=== PATIENT | female | born 1990 | race Caucasian/White ===

== ENCOUNTER → 2018-12-22 13:26 | Outpatient (CLI) | payer OTHER, SELFPAY ==
--- NOTE | 2018-12-22 13:35 | VDLE_ITS ---
Reason For Study: LLE pain RIGHT LEFT CFV is compressible, spontaneous, phasic, GSV is normal. competent and demonstrates normal CFV is compressible, spontaneous, phasic, augmentation. competent, and demonstrates normal Procedure augmentation. Exam performed in department. FV is compressible, spontaneous, phasic, The exam was diagnostic. competent and demonstrates normal A preliminary report was called and/or faxed augmentation. to Stephan Gamboa PA @ 1:56 pm @ POP V is compressible, spontaneous, phasic, . competent and demonstrates normal Image #14 is LEFT Gastrocnemius Vein. augmentation. T/P Trunk is compressible. PTV is compressible. LT PerV is compressible. Gastrocnemius V is compressible. Interpretation Summary Deep veins of the left lower extremity are patent and compressible segmentally. There is no evidence of left lower extremity deep vein thrombosis. Valvular competence appears intact within the proximal deep venous system on the left . The left greater saphenous vein appears patent and compressible segmentally. Ordering Physician: Stephan Gamboa Referring Physician: Heber Unger Performed By: Phyllis Stratton, STEPHANIE, RVT
[2018-12-22 15:14] LABS: Absolute Lymphocyte Count 2.92 X10^3/ul (0.83-4.51); Absolute Neutrophil Count 5.8 X10^3/uL (2.0-7.7); Basophil# 0.03 X10^3/uL; Basophil% 0.3 % (0-1); Eosinophil# 0.21 X10^3/uL; Eosinophils% 2.2 % (0-5); Hematocrit 38.8 % (37-47); Hemoglobin 13.2 g/dl (12.0-15.0); Lymphocyte # 2.92 X10^3/ul (4.0); Lymphocyte % 30.5 % (19-41); Mean Corpuscular Hgb 30.2 pg (27.0-32.0); Mean Corpuscular Volume 88.8 fL (81-99); Mean Platelet Vol. 10.2 fl (6.2-12.0); Monocyte# 0.59 X10^3/uL; Monocyte% 6.2 % (0-10); Neutrophil # 5.79 X10^3/uL (2.7-7.7); Neutrophil % 60.6 % (47-70); POSITIVE COUNT NO; POSITIVE DIFFERENTIAL NO; POSITIVE MORPHOLOGY NO; Platelet Count 307 K/mm3 (150-450); RBC Distribution Width CV 12.5 % (11.6-14.6); RBC Distribution Width SD 40.2 fl (35.1-43.9); Red Blood Count 4.37 M/mm3 (4.2-5.4); White Blood Count 9.6 K/mm3 (4.4-11.0)
[2018-12-22 15:34] LABS: Erythrocyte Sedimentation Rate 11 mm/hr (0-20)
[2018-12-22 15:36] LABS: CRP 8.61 mg/L (0.0-3.0)
== END ==
PROVIDERS: Family Provider Family Medicine; PCP Family Medicine; Referring Provider Physician Assistant Surgical; Visit Provider Physician Assistant Surgical
DX: M79.662 Pain in left lower leg (principal); M25.562 Pain in left knee
CPT/HCPCS: 36415; 85025; 85652; 86140; 93971

== ENCOUNTER → 2020-05-22 16:33 | Outpatient (CLI) | payer OTHER, SELFPAY ==
[2017-01-29 20:16] VITALS: BMI 51.7
[2020-05-26 13:23] LABS: HPV Reflexed? NOT INDICATED
== END ==
PROVIDERS: PCP Family Medicine; Visit Provider Obstetrics & Gynecology
DX: Z12.4 Encounter for screening for malignant neoplasm of cervix (principal)
CPT/HCPCS: 88175; G0145

== ENCOUNTER → 2020-07-24 14:11 | Outpatient (CLI) | payer OTHER, SELFPAY ==
[2017-01-29 20:16] VITALS: BMI 51.7
[2020-07-24 15:48] LABS: Absolute Lymphocyte Count 2.59 X10^3/uL (0.83-4.51); Absolute Neutrophil Count 5.2 X10^3/uL (2.0-7.7); Basophil# 0.04 X10^3/uL; Basophil% 0.5 % (0-1); Eosinophil# 0.16 X10^3/uL; Eosinophils% 1.9 % (0-5); Hematocrit 35.6 % (37-47); Hemoglobin 12.4 g/dL (12.0-15.0); Lymphocyte # 2.59 X10^3/ul (4.0); Lymphocyte % 30.9 % (19-41); Mean Corp Hgb Conc 34.8 g/dL (32-36); Mean Corpuscular Hgb 31.3 pg (27.0-32.0); Mean Corpuscular Volume 89.9 fL (81-99); Mean Platelet Vol. 10.4 fl (6.2-12.0); Monocyte# 0.38 X10^3/uL; Monocyte% 4.5 % (0-10); NRBC Flagged by Analyzer 0 % (0-5); Neutrophil # 5.17 X10^3/uL (2.7-7.7); Neutrophil % 61.8 % (47-70); Platelet Count 286 K/mm3 (150-450); RBC Distribution Width CV 11.9 % (11.6-14.6); RBC Distribution Width SD 39.2 fl (35.1-43.9); Red Blood Count 3.96 M/mm3 (4.2-5.4); White Blood Count 8.4 K/mm3 (4.4-11.0)
[2020-07-25 09:22] LABS: HIV - WCH Non-Reactive (Nonreactive); Hepatitis B Surface Antigen Non-Reactive (Nonreactive); Hepatitis C Antibody Non-Reactive (Nonreactive); Rubella IgG Reactive (Nonreactive)
[2020-07-26 01:42] LABS: Prenatal RPR NONREACTIVE (NONREACTIVE)
[2020-07-27 04:08] LABS: Chlamydia By Nucleic Acid AMP Negative (Negative)
[2020-07-27 12:34] LABS: Gonococcus By Nucleic Acid AMP Negative (Negative)
== END ==
PROVIDERS: PCP Family Medicine; Visit Provider Obstetrics & Gynecology
DX: Z11.3 Encounter for screening for infections with a predominantly sexual mode of transmission (principal); Z34.81 Encounter for supervision of other normal pregnancy, first trimester
CPT/HCPCS: 36415; 85025; 86703; 86762; 86803; 87086; 87088; 87340; 87491; 87591

== ENCOUNTER → 2020-11-16 11:47 | Outpatient (CLI) | payer OTHER, SELFPAY ==
[2017-01-29 20:16] VITALS: BMI 51.7
[2020-11-16 13:03] LABS: Absolute Lymphocyte Count 1.86 X10^3/uL (0.83-4.51); Absolute Neutrophil Count 4.8 X10^3/uL (2.0-7.7); Basophil# 0.04 X10^3/uL; Basophil% 0.5 % (0-1); Color, Urine Yellow (Yellow); Eosinophil# 0.13 X10^3/uL; Eosinophils% 1.8 % (0-5); Glucose, Dipstick Normal (Normal); Hematocrit 37.2 % (37-47); Hemoglobin 12.5 g/dL (12.0-15.0); Ketone-Dipstick Negative (Negative); Leukocyte Esterase-Dipstick 25 /ul (Negative); Lymphocyte # 1.86 X10^3/ul (0.83-4.51); Lymphocyte % 25.5 % (19-41); Mean Corp Hgb Conc 33.6 g/dL (32-36); Mean Corpuscular Hgb 30.3 pg (27.0-32.0); Mean Corpuscular Volume 90.1 fL (81-99); Mean Platelet Vol. 10.5 fl (6.2-12.0); Monocyte# 0.44 X10^3/uL; NRBC Flagged by Analyzer 0 % (0-5); Neutrophil % 65.8 % (47-70); Nitrite-Dipstick Negative (Negative); Occult Blood-Urine Negative /ul (Negative); Platelet Count 252 K/mm3 (150-450); Protein-Dipstick Negative (Negative); RBC Distribution Width CV 12.3 % (11.6-14.6); RBC Distribution Width SD 40.4 fl (35.1-43.9); Red Blood Count 4.13 M/mm3 (4.2-5.4); Specific Gravity, Urine 1.015 (1.002-1.030); Urine Bilirubin Dipstick Negative (Negative); Urine Clarity Clear (Clear); Urine Urobilinogen Normal (Normal); White Blood Count 7.3 K/mm3 (4.4-11.0)
[2020-11-16 13:21] LABS: Amphetamine Urine VISTA NEGATIVE (<1000 ng/mL); Barbiturate Urine VISTA NEGATIVE (< 200 ng/mL); Benzodiazepine Urine VISTA NEGATIVE (< 200 ng/mL); Cocaine Urine VISTA NEGATIVE (< 300 ng/mL); Ecstacy Urine VISTA NEGATIVE (< 500 ng/mL); Methadone Urine VISTA NEGATIVE (< 300 ng/mL); PCP Urine VISTA NEGATIVE (< 25 ng/mL); THC Urine VISTA NEGATIVE (< 50 ng/mL); Vista UDS pH Range 5
[2020-11-16 13:24] LABS: Thyroid Stim Hormone (TSH) 2.67 uIU/mL (0.358-3.74)
[2020-11-16 13:55] LABS: HIV - WCH Non-Reactive (Nonreactive); Hepatitis B Surface Antigen Non-Reactive (Nonreactive); Hepatitis C Antibody Non-Reactive (Nonreactive); Rubella IgG Reactive (Nonreactive); Syphilis Antibodies Non-reactive
[2020-11-19 16:09] LABS: Chlamydia By Nucleic Acid AMP Negative (Negative)
[2020-11-19 16:22] LABS: Gonococcus By Nucleic Acid AMP Negative (Negative)
== END ==
PROVIDERS: PCP Family Medicine; Visit Provider Obstetrics & Gynecology
DX: Z11.3 Encounter for screening for infections with a predominantly sexual mode of transmission (principal); Z34.81 Encounter for supervision of other normal pregnancy, first trimester
CPT/HCPCS: 36415; 80307; 81002; 84443; 85025; 86703; 86762; 86780; 86803; 87340; 87491; 87591

== ENCOUNTER → 2021-01-07 13:26 | Outpatient (CLI) | payer OTHER, SELFPAY ==
[2017-01-29 20:16] VITALS: BMI 51.7
== END ==
PROVIDERS: PCP Family Medicine; Visit Provider Obstetrics & Gynecology
DX: O26.899 Other specified pregnancy related conditions, unspecified trimester (principal); R31.9 Hematuria, unspecified; Z3A.00 Weeks of gestation of pregnancy not specified
CPT/HCPCS: 87086; 87088

== ENCOUNTER → 2021-03-06 08:44 | Outpatient (CLI) | payer OTHER, SELFPAY ==
[2021-03-06 10:00] LABS: Glucose Challenge Gest 1H 50g 162 mg/dL (70-140)
== END ==
PROVIDERS: PCP Family Medicine; Visit Provider Obstetrics & Gynecology
DX: Z34.82 Encounter for supervision of other normal pregnancy, second trimester (principal)
CPT/HCPCS: 36415; 82950

== ENCOUNTER → 2021-03-15 07:00 | Outpatient (CLI) | payer OTHER, SELFPAY ==
[2021-03-15 08:15] LABS: Glucose GTT-Gestation. Fasting 97 mg/dL (<105)
[2021-03-15 09:45] LABS: Glucose GTT-Gestational 1 Hr 164 mg/dL (<190)
[2021-03-15 09:51] LABS: Glucose GTT-Gestational 2 Hr 149 mg/dL (<165)
[2021-03-15 11:08] LABS: Glucose GTT-Gestational 3 Hr 128 L (<145)
== END ==
PROVIDERS: PCP Family Medicine; Visit Provider Obstetrics & Gynecology
DX: O24.912 Unspecified diabetes mellitus in pregnancy, second trimester (principal); Z3A.00 Weeks of gestation of pregnancy not specified
CPT/HCPCS: 36415; 82951; 82952

== ENCOUNTER 2021-06-16 05:35 | Outpatient (CLI) | payer OTHER, SELFPAY ==
[2021-06-16 05:51] VITALS: TEMP 36.7
[2021-06-16 05:52] VITALS: BP 141/77; PULSE 91; TEMP 36.7
[2021-06-16 05:56] VITALS: BMI 52.6
[2021-06-16 06:06] VITALS: BP 128/68; PULSE 95
--- NOTE | 2021-06-16 09:37 | OB.TRI.NOTE ---
HPI - General HPI Narrative ANI KEARNEY, is a 31 F who presents at 36 weeks 3 days gestation to labor and delivery with right sided pain and back pain since 3:30 AM. Patient is scheduled for a repeat a few weeks. PFSH PFSH Home Medications Omeprazole [Prilosec] 40 mg PO DAILY 01/29/17 [History Last Taken 06/16/21 03:30] vit,[id number] [Prenatabs FA] 1 tab PO DAILY 01/29/17 [History Last Taken 06/15/21] acetaminophen [Tylenol Ex Str Rapid Release] 1,000 mg PO PRN PRN 06/16/21 [History Last Taken 06/16/21 03:30] aspirin [Baby Aspirin] 81 mg PO DAILY 06/16/21 [History Last Taken 06/14/21] Allergy/AdvReac Type Severity Reaction Status Date / Time No Known Allergies Allergy Verified 01/29/17 20:14 Social History Smoking Status: Never smoker History Elective abortions Hx Para 0 Spontaneous abortions Hx # Term Pregnancies Ectopic pregnancies Hx # Pregnancies Multiple births # of living children NST FHR Rate Baby A NST Reactive:: Yes FHR Category:: Category I Assessment & Plan (1) Right lower quadrant abdominal pain: PLAN: 36-week 2-day gestation with some right lower quadrant pain. Denies any fevers, nausea, vomiting. Pain was described as crampy and resolved over period of 1 to 2 hours on labor delivery. heart tones were reactive. Will discharge to home with routine follow-up.
== END 2021-06-16 23:59 | disposition home or self-care (01) ==
LOC: WPOUT 05:41 → WP 05:42
PROVIDERS: Visit Provider Obstetrics & Gynecology
DX: O26.893 Other specified pregnancy related conditions, third trimester (principal); R10.31 Right lower quadrant pain; Z3A.36 36 weeks gestation of pregnancy
CPT/HCPCS: 59025; 59050; 99218; G0378

== ENCOUNTER 2021-06-21 13:22 | Outpatient (CLI) | payer OTHER, BC, SELFPAY | END 2021-06-21 23:59 | disposition short-term general hospital (02) | PROVIDERS: Visit Provider Obstetrics & Gynecology | DX: Z36.85 Encounter for antenatal screening for Streptococcus B (principal) | CPT/HCPCS: 87077; 87081; 87186 ==

== ENCOUNTER 2021-06-28 11:09 | Outpatient (CLI) | payer OTHER, BC, SELFPAY | END 2021-06-28 23:59 | disposition short-term general hospital (02) | PROVIDERS: Visit Provider Obstetrics & Gynecology | DX: Z03.818 Encounter for observation for suspected exposure to other biological agents ruled out (principal) | CPT/HCPCS: 87635; U0003; U0005 ==

== ENCOUNTER 2021-07-05 05:05 | Inpatient (IN) | payer OTHER, BC, SELFPAY ==
[2021-07-05] VITALS (19 sets, daily range): BP systolic 100–133; BP diastolic 43–71; PULSE 73–97; RESP 12–20; TEMP 36–37.1; O2SAT 92–100; BMI 53.8
[2021-07-05] MEDS: Lactated Ringers 1,000 ML 999 ML IV (06:10)
[2021-07-05] MEDS: Acetaminophen 500 MG Tablet 1000 MG PO ×3 (06:45→17:56)
[2021-07-05 06:46] LABS: Absolute Lymphocyte Count 1.78 X10^3/uL (0.83-4.51); Absolute Neutrophil Count 5.7 X10^3/uL (2.0-7.7); Basophil# 0.02 X10^3/uL; Basophil% 0.2 % (0-1); Eosinophil# 0.08 X10^3/uL; Hemoglobin 8.6 g/dL (12.0-15.0); Lymphocyte # 1.78 X10^3/ul (0.83-4.51); Lymphocyte % 21.8 % (19-41); Mean Corp Hgb Conc 31.9 g/dL (32-36); Mean Corpuscular Hgb 26.2 pg (27.0-32.0); Mean Corpuscular Volume 82.3 fL (81-99); Mean Platelet Vol. 10.5 fl (6.2-12.0); Monocyte# 0.56 X10^3/uL; Monocyte% 6.8 % (0-10); NRBC Flagged by Analyzer 0 % (0-5); Neutrophil # 5.66 X10^3/uL (2.7-7.7); Neutrophil % 69.2 % (47-70); Platelet Count 210 K/mm3 (150-450); RBC Distribution Width SD 41.4 fl (35.1-43.9); Red Blood Count 3.28 M/mm3 (4.2-5.4); White Blood Count 8.2 K/mm3 (4.4-11.0)
[2021-07-05] MEDS: Lactated Ringers 1,000 ML 150 ML IV (07:18)
[2021-07-05] MEDS: Sodium Citrate/Citric Acid 30 ML UDC PO (07:18)
--- NOTE | 2021-07-05 07:52 | HP.PCM.OB_ITS ---
HPI - General General Date of Admission: 07/05/21 HPI Narrative ANI KEARNEY, is a 31 F who presents at 39 1/7 wga by LMP c/w 9w4d US for scheduled repeat section with tubal sterilization. issues: GBS positive Obesity Unstable lie Maternal Data Information MEJIA Calculator Estimated Delivery Date Method Current WG Current Estimate 07/11/21 Manual 39w 2d PFSH [facility] Medical History (Updated 07/05/21 @ 09:[address] Una Carlin MD) Delivered by section Pneumonia Polyhydramnios Home Medications Omeprazole [Prilosec] 40 mg PO DAILY 01/29/17 [History Last Taken 07/05/21 04:00] vit,[id number] [Prenatabs FA] 1 tab PO DAILY 01/29/17 [History Last Taken 07/04/21 06:00] aspirin [Baby Aspirin] 81 mg PO DAILY 06/16/21 [History Last Taken 07/04/21 06:00] Allergy/AdvReac Type Severity Reaction Status Date / Time No Known Allergies Allergy Verified 07/05/21 05:44 Family History no significant family his Surgical History no surgical history Social History Smoking Status: Never smoker History Elective abortions Hx Para 1 Spontaneous abortions Hx # Term Pregnancies Ectopic pregnancies Hx # Pregnancies Multiple births # of living children Past Pregnancies Del. Date Name GA/Weeks Outcome Route Bth Weight Gen Labor Lgth Anesthesia Del [facility] Provider FOB 01/31/17 Clara live - full term Female NST FHR Rate Baby A Baseline: 135 Vital Signs Vital Signs Vital Signs: 07/05/21 06:32 Temperature 98.1 F Temperature Source Temporal Pulse Rate 85 Respiratory Rate 18 Blood Pressure 124/64 H Blood Pressure Mean 84 Blood Pressure Position Semi-Fowlers Blood Pressure Location Left Arm Pulse Ox 96 Oxygen Delivery Method Room Air Weight Weight: 137.892 kg Body Mass Index (BMI) 53.8 Physical Exam Const alert, oriented x3 and no apparent distress HEENT normocephalic Resp normal respiratory effort, normal air movement and clear to auscultation bilaterally Cardio regular rate and regular rhythm GI normal to inspection, nondistended, normoactive bowel sounds, soft to palpation, non-tender and non-distended Inspection: gravid Labs Labs Labs: Blood Type A POSITIVE Antibody Screen NEGATIVE Hct 27.0 % (37-47) L Hgb 8.6 g/dL (12.0-15.0) L Syphilis Total Ab Non-reactive Rubella IgG Antibody Reactive (Nonreactive) Hep Bs Antigen Non-Reactive (Nonreactive) Neisseria gonorrhoeae DNA (TARSHA) Negative (Negative) HIV 1&2 Antibody Non-Reactive (Nonreactive) C.trachomatis DNA (PCR) Negative (Negative) Glucose 1 Hr 50 gm 162 mg/dL (70-140) H Group B Strep DNA POSITIVE (Negative) H Rhogam given: No Assessment & Plan (1) 39 weeks gestation of : PLAN: Proceed with repeat C/S, bilateral salpingectomy as planned.
--- NOTE | 2021-07-05 08:10 | FALS_PTH ---
PATIENT: ANI KEARNEY LOC: [facility] U#:[id number] AGE/SX: 31/F ROOM: WP005 RE07/05/[address]: Dr. Una Carlin MD : 1990 BED: 1 DIS: 07/06/2021 SPEC #: [id number] RECD: 07/05/21 10:25 STATUS: FARIBA KYLAHJennifer #: [id number] CODIE: 07/05/21 08:[address]: Una Haynes DEPT: SURGICAL PATHOLOGY RECD BY: Mamie Seo Tissues: Fallopian tube Procedures: Surgery Specimen Level II HEADER OPERATION: Tubal ligation PRE-OP DIAGNOSIS: Sterilization TISSUE SUBMITTED: Fallopian tubes, suture in right tube MICROSCOPIC DIAGNOSIS Right fallopian tube, salpingectomy: Complete segment of fallopian tube with benign paratubal cysts. Left fallopian tube, salpingectomy: Complete segment of fallopian tube with no pathologic change. AM:sol 07/08/2021 MICROSCOPIC DESCRIPTION Slides are reviewed. GROSS DESCRIPTION Received in fixative is one container labeled with the patient's name and designated bilateral fallopian tubes, suture in right tube. The specimen consists of two fallopian tubes with an average length of 6 cm and has an average diameter of 1 cm. Both fallopian tubes have normal fimbriated ends. No mass lesions are identified. Inspector Of Dredging sections are submitted in two cassettes as follows: 1 - right fallopian tube, 2 - left fallopian tube. / AM:sol 07/05/2021 TC:5 CPT: 25093 x2
--- NOTE | 2021-07-05 09:05 | EX.PCM.OBRPT ---
Assessment & Plan (1) 39 weeks gestation of : (2) Delivered by section: (3) Sterilization: Maternal Data Information MEJIA Calculator Estimated Delivery Date Method Current WG Current Estimate 07/11/21 Manual 39w 1d Details Operative Information Date of Procedure: 07/05/21 Pre-Operative Diagnosis: 1. 39 1/7 weeks gestation 2. Prior section 3. sterilization request Post-Operative Diagnosis: 1. 39 1/7 weeks gestation 2. Prior section 3. sterilization request Indications for : Repeat Elective and Desires elective sterilization Indications Narrative: 31-year-old 2 para 1-0-0-1 presents at 39-1/7 weeks gestational age for scheduled repeat section and tubal sterilization with bilateral salpingectomy. Procedural risks, benefits, indications and alternatives were reviewed at length and patient desired to proceed. Classification: Scheduled Procedure Type: low transverse rock drill operator #1: Alan Dozier Type of Anesthesia: Epidural Anesthesiologist: Tr Conway Antibiotic Given: Ancef 3 grams IV x1 Drain: Gonzalez to straight drain Estimated Blood Loss: 900 ml Findings Description of Procedure: The patient was taken to the operating room and spinal analgesia was administered. She is placed in a dorsal supine position with left lateral tilt. The perineum and abdomen were prepped and draped in sterile fashion. And the spinal was found to be adequate. A Pfannenstiel incision was made using a scalpel and brought down to incise the subcutaneous tissue and rectus fascia at the midline. Subcutaneous tissue was bluntly dissected off the fascia laterally. The fascial incision was dissected laterally and cephalad using curved Kim scissors. The superior leaflet of the rectus fascia was grasped using Keli clamps and bluntly dissected and sharply dissected from the underlying rectus muscle. In a similar fashion the inferior rectus fascia was dissected from the underlying muscle. The rectus muscles were bluntly at the midline. The peritoneum was identified and entered [sharply]. There was a superficial incidental hysterotomy at the midline through the serosal layer due to peritoneal entry. The bladder blade was placed into the abdomen and the vesicouterine peritoneal fold identified. The fold was incised and a bladder flap created. Bladder blade was then repositioned to the abdomen. A low transverse hysterotomy was made using the [Metzenbaum scissors] to level of the membranes. The hysterotomy was extended bluntly cephalad and caudad. The head was elevated and brought to the level of the hysterotomy, membranes were ruptured and clear, and the infant delivered revealing vigorous [male] infant. The cord was doubly clamped and cut after 30 seconds. The infant was passed to awaiting [nursery personnel]. The placenta was [expressed] from the uterus and appeared intact on inspection. The uterus was exteriorized and cleared of debris. The hysterotomy was then repaired using 0 Vicryl running lock suture. A second imbricating layer was also placed for additional hemostasis. Left salpingectomy was performed using the LigaSure device to electrocoagulate and separate the tube from the mesosalpinx to the level of the uterine cornua. In similar fashion right salpingectomy was performed. The midline superficial hysterotomy was repaired using 3-0 Monocryl. The uterus and adnexa were returned to the abdomen the bladder blade was repositioned. Additional hemostasis was required at the transverse hysterotomy. Mattress suture of 0 Vicryl was placed with good hemostasis. The anterior cul-de-sac was cleared of debris. The peritoneum and rectus muscles were reapproximated using 2-0 Vicryl running suture. The rectus fascia was closed using oh strata fix running suture. The subcutaneous tissue was reapproximated using 2-0 Vicryl. The skin was closed using 4-0 Monocryl subcuticularly. A Mepilex occlusive dressing was placed over the incision. The fundus was firm. The patient was then transferred to the recovery room without complication. Sponge, instrument, and needle counts were correct ?2. Tranexamic acid administered during procedure. Infant weight 9 pounds 10 ounces (4355 g) Presentation: Positive for Vertex Amniotic Membrane Rupture Type: Artificial Amniotic Fluid Description: Clear Placental Delivery Description: Expressed Placenta Disposition: [facility] Cord Vessel Description: 3 Vessels Cord Entanglement: Around neck x 1, loose Nuchal Cord Compression: Without compression Infant A Gender: Male (1 minute): 8 (5 minute): 9 Delayed Cord Clamping: Yes Complications Risks of Surgery Discussed w/Patient: Bleeding, Anesthesia Risks, Infection, Failure Rate of 1 to 2% and Injury to surrounding structure(s) including bowel and bladder
[2021-07-05] MEDS: Oxytocin 30 units/NS 500 ml 30 UNITS/500 ML IV.SOLN 167 UNITS IV (09:30)
[2021-07-05 10:25] LABS: Pathology Specimen OB SEE PATHOLOGY REPORT
[2021-07-05] MEDS: Ketorolac 30 MG/ML Syringe IV ×3 (10:35→22:39)
[2021-07-05] MEDS: Lactated Ringers 1,000 ML 100 ML IV (12:27)
[2021-07-05] MEDS: Cefazolin 1 GM/50 ML BAG IV (15:09)
[2021-07-05] MEDS: Ondansetron 4 MG/2 ML Vial IV (15:17)
[2021-07-05] MEDS: 0.9% Saline Lock 10 ML Syringe IV (15:17)
--- NOTE | 2021-07-05 17:23 | NURSING ---
First ambulation delayed due to pt nausea and feeling lightheaded.
[2021-07-05] MEDS: Enoxaparin 40 MG/0.4 ML Syringe SC (21:02)
[2021-07-06 00:19] VITALS: BP 108/46; PULSE 79; RESP 16; O2SAT 92
[2021-07-06] MEDS: Cefazolin 1 GM/50 ML BAG IV (00:24)
[2021-07-06] MEDS: Acetaminophen 500 MG Tablet 1000 MG PO ×3 (00:24→11:47)
[2021-07-06 04:35] VITALS: BP 93/45; PULSE 83; RESP 16; O2SAT 92
[2021-07-06] MEDS: Ketorolac 30 MG/ML Syringe IV (04:37)
[2021-07-06 05:10] LABS: Hematocrit 23.6 % (37-47); Hemoglobin 7.7 g/dL (12.0-15.0); Mean Corp Hgb Conc 32.6 g/dL (32-36); Mean Corpuscular Hgb 27.2 pg (27.0-32.0); Mean Corpuscular Volume 83.4 fL (81-99); Mean Platelet Vol. 10.6 fl (6.2-12.0); Platelet Count 168 K/mm3 (150-450); RBC Distribution Width CV 14.1 % (11.6-14.6); Red Blood Count 2.83 M/mm3 (4.2-5.4); White Blood Count 9.5 K/mm3 (4.4-11.0)
[2021-07-06 06:25] VITALS: PULSE 83; O2SAT 97
--- NOTE | 2021-07-06 07:37 | PCM.DC.SUM ---
Providers Date of Admission: 07/05/21 Reason For Visit: REPEAT Diagnosis Discharge Diagnosis (1) 39 weeks gestation of : Status: Acute Code(s): Z3A.39 - 39 weeks gestation of Medications at Discharge Home Medications Omeprazole [Prilosec] 40 mg PO DAILY 01/29/17 Prenatabs FA 1 tab PO DAILY 01/29/17 ibuprofen 800 mg PO Q8H PRN #30 tab 07/06/21 oxycodone 5 mg PO Q6H PRN PRN 7 Days #16 tab 07/06/21 Hospital Course Operations section (bilateral salpingectomy) Procedures None Summary of Care Provided Hospital Course: 31yo admitted t 39 1/7 weeks gestation for scheduled section. She had an uncomplicated section with bilateral salpingectomy. Her postoperative Hgb was 7.7 from 8.6 preop. She was out of bed, ambulating, passing flatus, voiding without difficulty and pain was controlled. . Denies symptoms of anemia. She requested discharge and was discharged to home on postoperative day #1. Physical Exam Narrative Pain is controlled. Patient without complaints. is going well. Const alert, oriented x3 and no apparent distress Resp normal respiratory effort, normal air movement and clear to auscultation bilaterally Cardio regular rate, regular rhythm, S1 normal heart sound and S2 normal heart sound GI normal to inspection, nondistended, normoactive bowel sounds, soft to palpation, non-tender and non-distended Manual OB Exam: other lochia scant Uterus Palpation: uterus fundus firm Extremity no calf tenderness Weight / BMI Weight Weight: 137.892 kg Body Mass Index (BMI) 53.8 ABG / Lab / Microbiology Data Result Diagrams: 07/06/21 04:48 Laboratory: Laboratory Results - last 24 hr 07/05/21 06:10: Blood Type A POSITIVE, Antibody Screen NEGATIVE 07/06/21 04:48: WBC 9.5, RBC 2.83 L, Hgb 7.7 L, Hct 23.6 L, MCV 83.4, MCH 27.2, MCHC 32.6, RDW Std Deviation 42.0, RDW Coeff of Osbaldo 14.1, Plt Count 168, MPV 10.6 D/C Instructions Discharge Diet: No restrictions Discharge Activity: Return to Normal Activity and May Shower May resume sexual activity in: 4-6 weeks Lifting Restrictions: 10 lb Call your doctor if your incision/area has: Continuous Slow Oozing, Sudden Increased Bleeding, Increased Pain/ Swelling, Increased Redness, Foul Smelling Discharge and Swelling at the incision site Call your doctor if you observe: Using more than 1 pad per hour, Shortness of breath, Chest pain, Calf discomfort, Uncontrolled pain and - (Persistent or severe headache) Suture Line Care: Avoid Pulling/Pushing Remove Dressing in: 4 days Cleanse incision/area with: Soap & Water Additional Instructions: Start an over the counter iron supplement - take this 1 to 2 times daily as tolerated. Use a stool softener over the counter 1 to 2 times daily as needed for constipation. Please Follow Up With: Una Haynes MD When: 2 weeks Meaningful Use Info Meaningful Use Diagnoses (Choose all that apply): None applicable Discharge Plan Admission Admit Date/Time: 07/05/21 05:05 Primary Reason for Your Visit: delivery Attending Provider: Una Haynes Discharge Orders/Prescriptions Prescriptions: New oxycodone 5 mg Tablet 5 mg PO Q6H PRN PRN (Reason: severe pain) 7 Days Qty: 16 RF: 0 ibuprofen 800 mg tablet 800 mg PO Q8H PRN (Reason: pain) Qty: 30 RF: 0 Continued Prenatabs FA 1 TABLET tablet 1 tab PO DAILY RF: 0 Omeprazole [Prilosec] 40 MG capsule 40 mg PO DAILY RF: 0 Discontinued aspirin [Baby Aspirin] 81 mg Tablet,Chewable 81 mg PO DAILY RF: 0 Disposition Disposition (needs filled in before D/C Order can be placed): Home, Self Care
[2021-07-06 08:24] VITALS: BP 117/61; PULSE 83; RESP 16; TEMP 36.3; O2SAT 98
[2021-07-06] MEDS: Senna/Docusate Sodium 1 Tablet PO (09:47)
[2021-07-06] MEDS: Enoxaparin 40 MG/0.4 ML Syringe SC (09:47)
[2021-07-06] MEDS: oxyCODONE 5 MG Tablet PO ×2 (09:47→13:27)
[2021-07-06] MEDS: Ibuprofen 600 MG Tablet PO (11:47)
[2021-07-06 13:34] VITALS: BP 118/68; PULSE 80; RESP 18; O2SAT 99
--- NOTE | 2021-07-10 17:14 | NURSING ---
Had follow up visit with Luz Maria CALABRESE , and doing well, vaginal bleeding slowing and no symptoms of High BP, was happy with her care.
== END 2021-07-06 13:55 | disposition home or self-care (01) | DRG 785 ==
PROVIDERS: Admitting Provider Obstetrics & Gynecology; Referring Provider Obstetrics & Gynecology; Visit Provider Obstetrics & Gynecology
PROC: 10D00Z1 Extraction of Products of Conception, Low, Open Approach (ICD-10-PCS; CPT 59514; principal; 2021-07-05 07:15)
DX: O34.219 Maternal care for unspecified type scar from previous cesarean delivery (principal); E66.9 Obesity, unspecified; Z37.0 Single live birth; Z3A.39 39 weeks gestation of pregnancy; Z30.2 Encounter for sterilization; Z79.82 Long term (current) use of aspirin; O99.824 Streptococcus B carrier state complicating childbirth; O69.81X0 Labor and delivery complicated by cord around neck, without compression, not applicable or unspecified
CPT/HCPCS: 59025; 59050; 85025; 85027; 86850; 86900; 86901; 88302; 99218; 99251; J7120; A4216; G0378; G0463; J2405

== ENCOUNTER 2021-09-06 22:39 | Observation (INO) | payer OTHER, BC, SELFPAY ==
[2021-09-06 22:40] VITALS: BP 144/89; PULSE 94; RESP 16; TEMP 37; O2SAT 100; BMI 47.5
--- NOTE | 2021-09-06 22:44 | US_ITS ---
STUDY: ABDOMINAL ULTRASOUND - RIGHT UPPER QUADRANT REASON FOR VISIT: Female, 31 years old . Right upper quadrant pain. TECHNIQUE: Ultrasound evaluation of the right upper quadrant was performed with real-time and static guillen-scale imaging. TECHNICAL QUALITY: Adequate. COMPARISON: CT of the abdomen and pelvis, 07/07/2012. FINDINGS: Liver: The liver measures 23.6 cm. There is increased echogenicity consistent with fatty infiltration. The bile ducts are within normal limits. There is hepatic color flow. The direction of portal flow is hepatopetal. There is no demonstrated mass lesion. Gallbladder: There is a markedly distended gallbladder. The gallbladder wall measures 2 mm. There is a positive sonographic Carbajal''s sign. There is no pericholecystic fluid. Multiple tiny gallstones are noted. Common Bile Duct (C.B.D.): The common bile duct measures 7 mm. Pancreas: Normal size of the head, body and tail of the pancreas. There is normal echogenicity of the pancreas. There is no demonstrated pancreatic mass or cyst. Right Kidney: Normal size of the right kidney. The right kidney measures 12.5 cm. Normal renal cortex. The right cortex measures 1.4 cm. There is no demonstrated renal mass or cyst. There is no right hydronephrosis. US/Gallbladder IMPRESSION: 1. Enlarged fatty infiltrated liver without focal mass. 2. Multiple small gallstones with distended gallbladder and positive Carbajal''s sign. Question acute cholecystitis. Electronically Signed: Robert Price DO at 23:40 EDT ,
--- NOTE | 2021-09-06 22:50 | EDS_ITS ---
HPI History of Present Illness Chief Complaint: Abd Pain Informant: patient Onset/Context/Timing Onset: Today Current Severity: Moderate Maximum Severity: Severe Narrative Narrative: Patient presents with hyper quadrant pain with nausea and vomiting. Patient is approximate 2 months . She reports onset of right upper quadrant abdominal pain tonight after eating dinner. She does report 1 prior similar episode of pain when she states she initially thought she was in labor. She now thinks it may have been a gallbladder attack. No fever or chills. She does report having diarrhea this past week. [facility] Medical History Delivered by section Pneumonia Polyhydramnios Home Medications Omeprazole [Prilosec] 40 mg PO DAILY 01/29/17 [History Last Taken 07/05/21 04:00] Allergy/AdvReac Type Severity Reaction Status Date / Time No Known Allergies Allergy Verified 09/06/21 22:44 Social History Smoking Status: Never smoker ROS ROS ED Constitutional Constitutional ED: Denies chills or fever(s) Eyes Eyes: Denies change in vision ENT ENT ED: Denies sore throat Cardiovascular Cardiovascular: Denies chest pain Respiratory/Chest Respiratory/Chest: Denies cough or dyspnea Gastrointestinal Gastrointestinal: Reports abdominal pain, diarrhea, nausea and vomiting Genitourinary Genitourinary ED: Denies dysuria Musculoskeletal Musculoskeletal: Reports back pain Integumentary Denies rash Neurologic Neurologic: Denies headache(s) or weakness Allergic/Immunologic Allergic/Immunologic ED: Denies urticaria EXAM Physical Exam Const Vital Signs: 09/06/21 22:40 Temperature 98.6 F Temperature Source Temporal Pulse Rate 94 Respiratory Rate 16 Blood Pressure 144/89 H Blood Pressure Mean 107 Pulse Ox 100 Oxygen Delivery Method Room Air Positive well nourished and well developed General Appearance ED: well developed HEENT Reports moist mucous membranes Eyes PERRL and EOMs intact bilaterally Neck supple Chest Wall inspection of chest normal and palpation of chest normal Resp normal respiratory effort and clear to auscultation bilaterally Cardio regular rate and regular rhythm GI Auscultation: hypoactive bowel sounds Palpation: soft and tender RUQ Extremity normal to inspection Neuro oriented x3 Sensorium / Orientation: alert Psych Mood & Affect: anxious Skin no rashes or lesions noted MDM MDM MDM Narrative Medical decision making narrative: Patient is given morphine and Zofran along with IV fluids. Lab work and right upper quadrant ultrasound obtained. Lab Data Attestation: I reviewed the patient's lab results. Labs: Laboratory Results - last 24 hr 09/06/21 09/06/21 22:50 22:50 WBC 11.7 H RBC 4.49 Hgb 13.1 Hct 39.0 MCV 86.9 MCH 29.2 MCHC 33.6 RDW Std Deviation 47.7 H RDW Coeff of Osbaldo 15.2 H Plt Count 264 MPV 10.2 Immature Gran % (Auto) 0.400 Neut % (Auto) 74.2 H Lymph % (Auto) 17.5 L [place] % (Auto) 6.7 Eos % (Auto) 0.9 Baso % (Auto) 0.3 Absolute Neuts (auto) 8.7 H Absolute Lymphs (auto) 2.04 Nucleated RBC % 0 Sodium 140 Potassium 3.9 Chloride 104 Carbon Dioxide 30.0 Anion Gap 6 BUN 16 Creatinine 0.92 Estim Creat Clear Calc 70.72 Est GFR (MDRD) Af Amer 92 Est GFR (MDRD) Non-Af 76 BUN/Creatinine Ratio 17.3 Glucose 124 H Calcium 9.4 Total Bilirubin 0.60 Direct Bilirubin 0.33 H AST 102 H ALT 101 H Alkaline Phosphatase 85 Total Protein 7.6 Albumin 4.0 Globulin 3.6 Lipase 161 Radiography Diagnostic Testing: Clinical Impression(s) from Imaging Studies Gallbladder Ultrasound 09/06/21 22:44 IMPRESSION: 1. Enlarged fatty infiltrated liver without focal mass. 2. Multiple small gallstones with distended gallbladder and positive Carbajal''s sign. Question acute cholecystitis. Electronically Signed: Robert Price DO at 23:40 EDT Reading Location ID and State: [address] [place] [address] Tel [phone], Service support , Treatment and Re-Evaluation Narrative: Lab work reveals mild leukocytosis with white count of 11.7 and a mild left shift. Chemistry studies reveal a normal total bilirubin with a elevated direct bilirubin at 0.33. AST is 102 and ALT is 101. Right upper quadrant ultrasound reveals multiple small gallstones with distended gallbladder and a positive Carbajal sign. Gallbladder wall is 2 mm and at this time I do not see evidence of pericholecystic fluid. On repeat evaluation patient still having some pain. She is describing a burning-like sensation with reflux. She will be given a dose of Protonix. I spoke with Dr. Robertson who reviewed the patient's imaging. She will admit the patient tonight and speak with her tomorrow morning about getting gallbladder out. She will be given a dose of Zosyn tonight. Patient has been vaccinated against Covid therefore does not require Covid test prior to surgery. Discharge Plan Triage Chief Complaint: Abd Pain ED Provider: Gissel Ndiaye Dx/Rx/DC Orders Clinical Impression: Acute cholecystitis Prescriptions: No Action Omeprazole [Prilosec] 40 MG capsule 40 mg PO DAILY RF: 0 Primary Care Provider: Care Physician,No Primary Referrals: Care Physician,No Primary [Primary Care Provider] - Disposition Disposition: Acute Care [facility]
[2021-09-06 23:00] LABS: Absolute Lymphocyte Count 2.04 X10^3/uL (0.83-4.51); Absolute Neutrophil Count 8.7 X10^3/uL (2.0-7.7); Basophil# 0.03 X10^3/uL; Basophil% 0.3 % (0-1); Eosinophils% 0.9 % (0-5); Hemoglobin 13.1 g/dL (12.0-15.0); Lymphocyte # 2.04 X10^3/ul (0.83-4.51); Lymphocyte % 17.5 % (19-41); Mean Corp Hgb Conc 33.6 g/dL (32-36); Mean Corpuscular Hgb 29.2 pg (27.0-32.0); Mean Corpuscular Volume 86.9 fL (81-99); Mean Platelet Vol. 10.2 fl (6.2-12.0); Monocyte# 0.78 X10^3/uL; Monocyte% 6.7 % (0-10); NRBC Flagged by Analyzer 0 % (0-5); Neutrophil # 8.67 X10^3/uL (2.7-7.7); Neutrophil % 74.2 % (47-70); Platelet Count 264 K/mm3 (150-450); RBC Distribution Width CV 15.2 % (11.6-14.6); RBC Distribution Width SD 47.7 fl (35.1-43.9); Red Blood Count 4.49 M/mm3 (4.2-5.4); White Blood Count 11.7 K/mm3 (4.4-11.0)
[2021-09-06] MEDS: Morphine 4 MG/ML Syringe IV (23:00)
[2021-09-06] MEDS: 0.9% Normal Saline 1,000 ML 150 ML IV (23:00)
[2021-09-06] MEDS: Ondansetron 4 MG/2 ML Vial IV (23:01)
[2021-09-06 23:19] LABS: AST(SGOT) 102 U/L (15-37); Alanine Aminotransfer ALT/SGPT 101 U/L (13-56); Alkaline Phosphatase 85 U/L (45-117); Anion Gap 6 (5-15); BUN 16 mg/dL (7-18); BUN/Creat Ratio 17.3 RATIO (10-20); Bilirubin, Direct 0.33 mg/dL (0.00-0.30); Calcium,Total 9.4 mg/dL (8.5-10.1); Chloride 104 mmol/L (98-107); Creatinine, Serum 0.92 mg/dL (0.55-1.02); EST Glomerular Filtration Rate 76 mL/min (>60); Est Glom Filt Rate - Afr Amer 92 mL/min (>60); Estimated Creatinine Clearance 70.72 ml/min; Globulin 3.6 g/dL (2.2-4.2); Glucose 124 mg/dL (74-106); Lipase 161 U/L (73-393); Potassium 3.9 mmol/L (3.5-5.1); Protein, Total 7.6 g/dL (6.4-8.2); Sodium Level 140 mmol/L (136-145)
[2021-09-07] VITALS (14 sets, daily range): BP systolic 111–144; BP diastolic 56–87; PULSE 58–88; RESP 16–18; TEMP 36.4–37.2; O2SAT 92–100; BMI 47.8
[2021-09-07] MEDS: Piperacil/Tazobactam 3.375 GM/50 ML ML IV ×3 (00:27→13:31)
[2021-09-07] MEDS: 0.9% Normal Saline 1,000 ML 150 ML IV ×5 (01:50→21:41)
--- NOTE | 2021-09-07 05:55 | EKG12_ITS ---
Test Reason : AM EKG Blood Pressure : / mmHG Vent. Rate : 080 BPM Atrial Rate : 080 BPM P-R Int : 180 ms QRS Dur : 094 ms QT Int : 372 ms P-R-T Axes : 045 021 024 degrees QTc Int : 429 ms Normal sinus rhythm Low voltage QRS Borderline ECG No previous ECGs available Confirmed by FLORENCIO ROLLE, AUGUSTUS ([id number]), deputy editor in chief JOSÉ MIGUEL GALLEGOS ([id number]) on 09/10/2021 11:15:01 AM Referred By: Confirmed By:AUGUSTUS MATIAS MD
[2021-09-07 06:33] LABS: Absolute Lymphocyte Count 1.83 X10^3/uL (0.83-4.51); Absolute Neutrophil Count 6.3 X10^3/uL (2.0-7.7); Basophil# 0.04 X10^3/uL; Basophil% 0.5 % (0-1); Eosinophil# 0.04 X10^3/uL; Eosinophils% 0.5 % (0-5); Hematocrit 33.7 % (37-47); Hemoglobin 11.5 g/dL (12.0-15.0); Lymphocyte # 1.83 X10^3/ul (0.83-4.51); Lymphocyte % 20.9 % (19-41); Mean Corp Hgb Conc 34.1 g/dL (32-36); Mean Corpuscular Hgb 28.8 pg (27.0-32.0); Mean Corpuscular Volume 84.3 fL (81-99); Mean Platelet Vol. 10.3 fl (6.2-12.0); Monocyte# 0.49 X10^3/uL; Monocyte% 5.6 % (0-10); NRBC Flagged by Analyzer 0 % (0-5); Neutrophil # 6.34 X10^3/uL (2.7-7.7); Neutrophil % 72.2 % (47-70); Platelet Count 237 K/mm3 (150-450); RBC Distribution Width SD 46.3 fl (35.1-43.9); White Blood Count 8.8 K/mm3 (4.4-11.0)
[2021-09-07 07:16] LABS: AST(SGOT) 175 U/L (15-37); Alanine Aminotransfer ALT/SGPT 157 U/L (13-56); Albumin, Serum 3.3 g/dL (3.2-5.0); Alkaline Phosphatase 85 U/L (45-117); Anion Gap 6 (5-15); BUN 14 mg/dL (7-18); Bilirubin, Direct 0.24 mg/dL (0.00-0.30); Calcium,Total 8.3 mg/dL (8.5-10.1); Chloride 107 mmol/L (98-107); EST Glomerular Filtration Rate 104 mL/min (>60); Est Glom Filt Rate - Afr Amer 126 mL/min (>60); Estimated Creatinine Clearance 88.68 ml/min; Glucose 103 mg/dL (74-106); Protein, Total 6.3 g/dL (6.4-8.2); Sodium Level 139 mmol/L (136-145)
--- NOTE | 2021-09-07 07:39 | PCM.HP.STD ---
HPI - General General Date of Admission: 09/06/21 HPI Narrative ANI KEARNEY, is a 31 F who presents initially presented to the ER due to right upper quadrant pain. The pain started about an hour after eating pizza last night. Patient does normally have reflux and is on omeprazole 40 mg p.o. daily. Patient states this usually takes care of her reflux. She did have a little bit of burning up her esophagus last night but the right upper quadrant pain is not typical with her reflux. Patient white blood cell count in the ER was 11.7 with elevation of ALT AST. The ALT and AST is slightly up a little more today the white blood count is normal patient was given Zosyn IV in the ER. Patient's ultrasound of her gallbladder does show some gallstones/sludge normal wall at 2 mm common bile duct 6 mm no pericholecystic fluid on ultrasound. Patient states she probably did have issues like this previously and thought it was due to labor as she is 2 months . [facility] Medical History Delivered by section Pneumonia Polyhydramnios Home Medications Omeprazole [Prilosec] 40 mg PO DAILY 01/29/17 [History Last Taken 07/05/21 04:00] Allergy/AdvReac Type Severity Reaction Status Date / Time No Known Allergies Allergy Verified 09/06/21 22:44 Surgical History (Updated 09/07/21 @ 01:39 by Carlos Kamara) S/P tubal ligation Social History Smoking Status: Never smoker Vital Signs Vital Signs Vital Signs: 09/06/21 22:40 09/07/21 00:53 09/07/21 00:54 Temperature 98.6 F 97.5 F L Temperature Source Temporal Temporal Pulse Rate 94 74 Respiratory Rate 16 16 16 Respiratory Effort Blood Pressure 144/89 H 112/56 L Blood Pressure Mean 107 74 Blood Pressure Source Blood Pressure Position Blood Pressure Location Pulse Ox 100 99 Oxygen Delivery Method Room Air Room Air 09/07/21 01:17 09/07/21 01:30 09/07/21 06:17 Temperature 97.9 F 98.0 F Temperature Source Oral Oral Pulse Rate 81 68 Respiratory Rate 18 16 Respiratory Effort Normal Non-Labored Blood Pressure 121/71 H 111/74 Blood Pressure Mean 87 86 Blood Pressure Source Monitor Monitor Blood Pressure Position Sitting Sitting Blood Pressure Location Left Arm Pulse Ox 98 98 Oxygen Delivery Method Room Air Room Air Room Air Weight Weight: 260 lb 2.327 oz Body Mass Index (BMI) 47.8 Physical Exam Const alert, oriented x3 and no apparent distress HEENT normocephalic and head/scalp atraumatic Resp normal respiratory effort Cardio regular rate GI soft to palpation; Negative for non-distended Inspection: Negative for abdominal distention Palpation: tender RUQ and suprapubic and hernia other (Umbilical-small incarcerated); Negative for guarding Extremity no clubbing, cyanosis or edema Neuro CN's II-XII intact bilaterally Psych mental status grossly normal Results Lab / Micro Data Result Diagrams: 09/07/21 05:59 09/07/21 05:59 Labs: Laboratory Results - last 24 hr 09/06/21 22:50: WBC 11.7 H, RBC 4.49, Hgb 13.1, Hct 39.0, MCV 86.9, MCH 29.2, MCHC 33.6, RDW Std Deviation 47.7 H, RDW Coeff of Osbaldo 15.2 H, Plt Count 264, MPV 10.2, Immature Gran % (Auto) 0.400, Neut % (Auto) 74.2 H, Lymph % (Auto) 17.5 L, [place] % (Auto) 6.7, Eos % (Auto) 0.9, Baso % (Auto) 0.3, Absolute Neuts (auto) 8.7 H, Absolute Lymphs (auto) 2.04, Nucleated RBC % 0 09/06/21 22:50: Sodium 140, Potassium 3.9, Chloride 104, Carbon Dioxide 30.0, Anion Gap 6, BUN 16, Creatinine 0.92, Estim Creat Clear Calc 70.72, Est GFR (MDRD) Af Amer 92, Est GFR (MDRD) Non-Af 76, BUN/Creatinine Ratio 17.3, Glucose 124 H, Calcium 9.4, Total Bilirubin 0.60, Direct Bilirubin 0.33 H, AST 102 H, ALT 101 H, Alkaline Phosphatase 85, Total Protein 7.6, Albumin 4.0, Globulin 3.6, Lipase 161 09/07/21 05:59: WBC 8.8, RBC 4.00 L, Hgb 11.5 L, Hct 33.7 L, MCV 84.3, MCH 28.8, MCHC 34.1, RDW Std Deviation 46.3 H, RDW Coeff of Osbaldo 15.0 H, Plt Count 237, MPV 10.3, Immature Gran % (Auto) 0.300, Neut % (Auto) 72.2 H, Lymph % (Auto) 20.9, [place] % (Auto) 5.6, Eos % (Auto) 0.5, Baso % (Auto) 0.5, Absolute Neuts (auto) 6.3, Absolute Lymphs (auto) 1.83, Nucleated RBC % 0 09/07/21 05:59: Sodium 139, Potassium 4.0, Chloride 107, Carbon Dioxide 26.0, Anion Gap 6, BUN 14, Creatinine 0.70, Estim Creat Clear Calc 88.68, Est GFR (MDRD) Af Amer 126, Est GFR (MDRD) Non-Af 104, BUN/Creatinine Ratio 20.0, Glucose 103, Calcium 8.3 L, Total Bilirubin 0.60, Direct Bilirubin 0.24, AST 175 H, ALT 157 H, Alkaline Phosphatase 85, Total Protein 6.3 L, Albumin 3.3, Globulin 3.0 Radiology Impression Gallbladder Ultrasound 09/06/21 22:44 IMPRESSION: 1. Enlarged fatty infiltrated liver without focal mass. 2. Multiple small gallstones with distended gallbladder and positive Carbajal''s sign. Question acute cholecystitis. Electronically Signed: Robert Price DO at 23:40 EDT Reading Location ID and State: [address] [place] [address] Tel [phone], Service support , Assessment & Plan Assessment/Plan (1) Acute cholecystitis: (2) GERD (gastroesophageal reflux disease): PLAN: Patient was admitted kept n.p.o. with IV fluids. Leukocytosis --IV Zosyn due to acute cholecystitis, white blood cell count currently within normal limits Elevated LFTs-- AST ALT still slightly elevated, patient did have a fatty liver on ultrasound however previous to this admission patient had normal LFTs Laparoscopic cholecystectomy this morning. Reviewed the anatomy with the patient and discussed the procedure: laparoscopic cholecystectomy with cholangiograms, possible open. Review risks including but not limited to bleeding, infection, hernia, bile leak, retained gallstones requiring another procedure ERCP- Endoscopic Retrograde Cholangiopancreatography, injury to another organ (bile ducts, common bile duct, small bowel, etc.) and conversion to an open procedure. All questions were answered. Virginia Robertson M.D. Pager: [phone] [facility] [address] [place] [address] Office: [phone] Procedure Criteria Type of Procedure Procedure Type: Elective Elective Risks - COVID COVID Risk Discussion: The surgeon/proceduralist and patient have discussed in detail the risk of exposure to and/or potential harm posed by the COVID-19 virus with having a surgery/procedure at this time versus the risk of delaying the surgery/procedure. It is not possible to know either the risk of delaying the surgery or procedure or chance of getting an infection with perfect accuracy, but a joint decision was made between the patient and the surgeon/proceduralist to proceed at this time with the scheduled surgery/procedure as indicated on the consent form.
--- NOTE | 2021-09-07 09:00 | RAD_ITS ---
CLINICAL HISTORY: Female, 31 years old. Abdominal pain PROCEDURE: CHOLANGIOGRAM - FLUOROSCOPY TIME (if supplied): (0:20) minutes/seconds TECHNIQUE: (All elements of maximal sterile barrier technique followed, including US elements as applicable) Fluoroscopic images demonstrate an unsuccessful cholangiogram with contrast extravasation. RAD/Cholangiogram/ O R,Initial IMPRESSION: Fluoroscopy during Intraop Cholangiogram. Electronically Signed: Haresh Giordano MD at 13:15 EDT ,
--- NOTE | 2021-09-07 09:03 | NURSING ---
This IBCLC called to talk with patient about weaning from pumping. Patient reports she has a 9wk old baby. She had a significant freezer supply but over the last 2 weeks she is getting less and less when she pumps. She starts the morning with getting 3-4oz but any following pump sessions she usually gets 1oz and baby needs a 5oz bottle. She states I want to be done. Education provided on the benefits of any breastmilk given and confirmed with patient it is ok to give baby whatever she expresses if she desires. If she wants to wean from pumping, I recommended she only remove enough milk to keep her comfortable as more pumping will create more milk. I suggested hand expression, [place], or brief pumping sessions. If her body tolerates this well over the next few days, she can stop pumping completely and monitor her breast for engorgement. I encouraged her to call if she has any questions or concerns with this process.
[2021-09-07] MEDS: Bupivacaine Mpf 0.5% 30 ML VIAL (10:06)
--- NOTE | 2021-09-07 10:20 | GALL_PTH ---
PATIENT: ANI KEARNEY LOC: [facility] U#:[id number] AGE/SX: 31/F ROOM: NM313 RE09/06/[address]: Dr. Virginia Robertson MD : 1990 BED: 1 DIS: 09/08/2021 SPEC #: [id number] RECD: 09/09/21 08:57 STATUS: FARIBA LAMB #: [id number] CODIE: 09/07/21 10:[address]: Virginia Robertson DEPT: SURGICAL PATHOLOGY RECD BY: Jovani Albarran ENTERED: 09/09/21 09:24 SP TYPE: LILLIE SOMMERS DR: No Primary Care Phys Tissues: Gallbladder, NOS Procedures: Surgery Specimen Level III HEADER OPERATION: Laparoscopic cholecystectomy with attempted IOC PRE-OP DIAGNOSIS: Acute cholecystitis TISSUE SUBMITTED: Gallbladder MICROSCOPIC DIAGNOSIS Gallbladder, cholecystectomy: Chronic cholecystitis, cholelithiasis and cholesterolosis. SJ:sol 09/10/2021 MICROSCOPIC DESCRIPTION Slides are reviewed. GROSS DESCRIPTION Received is one container labeled with the patient's name and designated gallbladder. The specimen consists of a gallbladder measuring 9 cm in length and up to 4 cm in diameter. The external surface is pink-thorne, smooth and glistening for the most part. Focally it is granular, hemorrhagic and contains cautery artifact. The gallbladder contains green-yellow mucoid bile and multiple brown stones measuring in aggregate 3 x 2.5 x 1 cm and 0.1 to 0.2 cm in greatest dimension. The mucosa is bile-stained and without any mass lesions. The gallbladder wall measures up to 0.1 cm in thickness. Bottoming Room Inspector sections from the gallbladder and the cystic duct are submitted in one cassette. / SJ:sol 09/09/2021 TC:3 [facility]: [id number]
--- NOTE | 2021-09-07 11:23 | OP.PCM_ITS ---
Report of Operation Date of Procedure: 09/07/21 Pre-Operative Diagnosis: Acute cholecystitis, fatty liver Post-Operative Diagnosis: Same Surgery/Procedure Performed:: Laparoscopic cholecystectomy with attempted cholangiograms Surgeon: Virginia Robertson Type of Anesthesia: General/Supplemental Anesthesiologist: Herve Parry Special Medications: Zosyn 3.375 g IV every 8 hours for acute cholecystitis Estimated Blood Loss (mL): < 10 cc Description of Procedure: Indications this is a 31 year-old female who developed abdominal pain/nausea/vomiting and on workup was found to have white blood cell count of 11.7,cholelithiasis, with a normal common bile duct. Laparoscopic cholecystectomy was elected. Description procedure: The patient was placed on operating table in supine position. General Anesthesia was induced. A timeout was completed verifying correct patient, procedure, site, position and special equipment prior to beginning procedure. The abdomen was prepped and draped in usual sterile fashion. An incision was made in the natural skin line above the umbilicus. The fascia was elevated and incised. The peritoneum was elevated and incised. Entry into the peritoneum was confirmed visually and no bowel was noted in the vicinity of the incision. Whitten trocar was placed. The abdomen was insufflated with carbon dioxide to a pressure of 12-15 mmHg. Patient tolerated insufflation well. The laparoscope was then inserted and abdomen inspected. No injuries from initial trocar placement were noted. Additional trochars were then inserted in the following locations 5 mm trocar in the epigastrium and 2 more 5 mm trochars along the right costal margin. The abdomen was inspected no abnormalities were found. The table is placed in reverse Trendelenburg position with the right side up. The adhesions between the gallbladder and omentum were lysed sharply. The dome of the gallbladder was grasped with atraumatic grasper passed through the lateral port and retracted over the dome of the liver. Infundibulum was then grasped with atraumatic grasper through the midclavicular port and retracted to the right lower quadrant. This maneuver exposed Calot's triangle. The peritoneum overlying the gallbladder infundibulum was then incised and cystic duct and artery identified and circumferentially dissected. Rangel catheter was attempted for cholangiograms, contrast went into the gallbladder. Did attempt to use the Ranfac catheter. Separate incision was made in the skin to accommodate the Ranfac catheter. However upon trying to insert the Ranfac catheter it did break at the bent portion in the subcutaneous tissue. Incision was enlarged with a 15 blade scalpel in order to dissect down into the tissue to remove the distal aspect of the Ranfac catheter. Entire Ranfac catheter tip was removed. Cholangiograms were not completed. The cystic duct and artery were then doubly clipped and divided close to the gallbladder. The gallbladder then dissected from its peritoneal attachments by electrocautery. Hemostasis was checked and the gallbladder and contained stones were removed using the endoscopic retrieval bag through the umbilical port. The gallbladder is passed off table as specimen. The gallbladder fossa was copiously irrigated with saline and hemostasis obtained. There is no evidence of bleeding from the gallbladder fossa or cystic artery leakage of bile from the cystic duct stump. Secondary trochars removed under direct vision. No bleeding was noted the tro car sites. The laparoscope was withdrawn and umbilical trocar removed. The abdomen was allowed to collapse. The fascia of the 12 mm trocar was closed with a [id number] 0 Vicryl suture. The skin was closed with sutures of 4-0 Monocryl and Steri-Strips. The orogastric tube was removed and the patient was extubated. The patient tolerated procedure well and was taken to the postanesthesia care unit in stable condition. Complications none
--- NOTE | 2021-09-07 11:28 | EX.PCM.DISCH ---
Discharge Instructions Diet Discharge Diet: Light diet - advance as tolerated Activity Discharge Activity: May Not Drive (while taking narcotic pain medications.) May shower in (days): 1 Lifting Restrictions: no lifting >20 lbs x 2 wks, no strenuous exercise for 4 wks Dressing / Incision Call your doctor if your incision/area has: Continuous Slow Oozing, Sudden Increased Bleeding, Increased Pain/ Swelling, Increased Redness, Foul Smelling Discharge and Swelling at the incision site Call your doctor if you observe: Fever of 101 or Higher Remove Dressing in: 2 days Cleanse incision/area with: Soap & Water Additional Dressing/Incision Instructions:: Steri-Strips will fall off in 7 to 10 days, if they do not fall off okay to remove after 10 days. Follow Up Care Please Follow Up With: Virginia Robertson MD When: Call the office for a follow-up appointment 2 weeks; after 5 PM and on the weekends call [phone] with any concerns. Test Results: Test results from this visit will be discussed in further detail at your follow-up appointment, if applicable. Discharge Plan Admission Admit Date/Time: 09/06/21 23:59 Attending Provider: Virginia Robertsno Primary Care Provider: Care Physician,Kerri Primary Discharge Orders/Prescriptions Prescriptions: New oxycodone-acetaminophen 5-325 mg tablet 1 - 2 tab PO Q6H PRN (Reason: pain) 3 Days Qty: 15 RF: 0 Continued Omeprazole [Prilosec] 40 MG capsule 40 mg PO DAILY RF: 0 Referrals / Follow Up: Care Physician,No Primary [Primary Care Provider] - Disposition Disposition (needs filled in before D/C Order can be placed): Home, Self Care
[2021-09-07] MEDS: Acetaminophen 325 MG Tablet 650 MG PO (15:36)
[2021-09-07] MEDS: oxyCODONE 5 MG Tablet PO (15:37)
[2021-09-08] VITALS (7 sets, daily range): BP systolic 110–139; BP diastolic 66–84; PULSE 62–84; RESP 16–18; TEMP 36.4–37.1; O2SAT 89–95
[2021-09-08] MEDS: Acetaminophen 325 MG Tablet 650 MG PO ×2 (01:07→08:11)
[2021-09-08] MEDS: oxyCODONE 5 MG Tablet PO ×3 (01:09→12:14)
[2021-09-08] MEDS: 0.9% Normal Saline 1,000 ML 150 ML IV (04:09)
[2021-09-08] MEDS: 0.9% Saline Lock 10 ML Syringe IV (07:57)
--- NOTE | 2021-09-08 08:48 | PCM.PN.SRG ---
Subjective Subjective Patient tolerating diet. Patient pain is controlled with pain meds. Objective Data Objective Data Vital Signs: Vital Signs Temp Pulse Resp BP Pulse Ox 98.2 F 73 16 139/84 H 94 09/08/21 07:54 09/08/21 07:54 09/08/21 07:54 09/08/21 07:54 09/08/21 07:54 Oxygen Flow Rate (L/min) 2 Oxygen Delivery Method Room Air Weight: 260 lb 2.327 oz Body Mass Index (BMI) 47.8 Intake & Output: Intake and Output for Last 24 Hours 09/06/21 09/07/21 09/08/21 23:59 23:59 23:59 Intake Total 4708.0 / 5008.0 1570 / 1570 Output Total 450 / 1350 2700 / 2700 Balance 4258.0 / 3658.0 -1130 / -1130 Lab / Micro Data Result Diagrams: 09/07/21 05:59 09/07/21 05:59 Radiography Diagnostic Testing: Radiology Impression Cholangiogram 09/07/21 09:00 IMPRESSION: Fluoroscopy during Intraop Cholangiogram. Electronically Signed: Haresh Giordano MD at 13:15 EDT , Physical Exam Resp normal respiratory effort Cardio regular rate GI GI Narrative: Abdomen: Soft, nondistended, tender near incision's dressed clean dry and intact, no peritoneal signs Assessment & Plan Assessment/Plan (1) S/P laparoscopic cholecystectomy: PLAN: Patient is doing well tolerating diet. Encourage patient to continue pain control to allow her ambulation until pain improves. Okay to DC home. Virginia Robertson M.D. Pager: [phone] [facility] [address] [place] [address], [facility], [address] [place] [address] Office: [phone]
== END 2021-09-08 13:31 | disposition home or self-care (01) ==
LOC: ED 09-07 → MS3 09-07 08:57
PROVIDERS: Admitting Provider Surgery; Emergency Provider Emergency Medicine; Visit Provider Surgery
PROC: (CPT 47610; principal; 2021-09-07 10:00)
DX: K80.12 Calculus of gallbladder with acute and chronic cholecystitis without obstruction (principal); K21.9 Gastro-esophageal reflux disease without esophagitis; K76.0 Fatty (change of) liver, not elsewhere classified; Z79.899 Other long term (current) drug therapy
CPT/HCPCS: 47562; 00790; 36415; 74300; 76000; 76705; 80048; 80076; 83690; 85025; 88304; 93005; 96361; 96365; 96375; 96376; 99218; 99251; 99284; J7030; J7050; A4216; G0378; G0463; J2405

== ENCOUNTER 2021-12-13 07:58 | Day surgery (SDC) | payer OTHER, BC, SELFPAY ==
[2021-12-13] VITALS (9 sets, daily range): BP systolic 102–154; BP diastolic 59–85; PULSE 71–96; RESP 16–32; TEMP 36.6–36.9; O2SAT 93–100; BMI 51.2
[2021-12-13] MEDS: Lactated Ringers 1,000 ML 15 ML IV ×2 (08:15→12:28)
--- NOTE | 2021-12-13 09:15 | PCM.HP.STD ---
HPI - General HPI Narrative ANI KEARNEY, is a 31 F who presents for umbilical hernia repair with mesh. 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 [facility] Medical History (Updated 12/04/21 @ 12:56 by Thao Moyer) Cholelithiasis Cholesterolosis Chronic cholecystitis Delivered by section Elevated liver enzymes Family history of early CAD Gastric reflux Non-smoker Pneumonia Polyhydramnios Wears glasses Home Medications pantoprazole 40 mg tablet,delayed release 40 mg PO BID #180 tabs 10/09/21 [Rx Last Taken 12/13/21] Allergy/AdvReac Type Severity Reaction Status Date / Time No Known Allergies Allergy Verified 12/13/21 08:25 Family History Father Arthritis Grandmother Cancer Myocardial infarction Heart disease Mother Myocardial infarction, Onset Age: 47 Heart disease Grandfather Myocardial infarction Heart disease Hypertension High cholesterol Kidney disease Respiratory disease Skin cancer Surgical History (Updated 12/04/21 @ 12:56 by Thao Moyer) History of S/P laparoscopic cholecystectomy S/P tubal ligation Social History Smoking Status: Never smoker alcohol intake: current alcohol intake frequency: holidays/special occasions only substance use type: does not use what type of physical activity do you participate in: walking frequency: 3-4 times per week Vital Signs Vital Signs Vital Signs: 12/13/21 08:26 12/13/21 08:26 Temperature 97.8 F Temperature Source Temporal Pulse Rate 78 Respiratory Rate 18 Respiratory Pattern Normal Blood Pressure 127/59 H Blood Pressure Mean 81 Blood Pressure Source Monitor Blood Pressure Position Semi-Fowlers Blood Pressure Location Right Arm Pulse Ox 99 Oxygen Delivery Method Room Air Weight Weight: 277 lb 12.519 oz Body Mass Index (BMI) 51.2 Physical Exam Const alert, oriented x3 and no apparent distress HEENT normocephalic and head/scalp atraumatic Resp normal respiratory effort Cardio regular rate GI soft to palpation; Negative for non-distended Palpation: tender other (At umbilicus only when trying to reduce the hernia) and hernia umbilical; Negative for guarding Extremity no clubbing, cyanosis or edema Neuro CN's II-XII intact bilaterally Psych mental status grossly normal Assessment & Plan Assessment/Plan (1) Umbilical hernia without obstruction and without gangrene: PLAN: Plan Plan to do an umbilical hernia repair with mesh. Reviewed the procedure with the patient including the risks, including but not limited to infection, bleeding, injury to the small bowel, and recurrence. All questions were answered. Patient no further question this time. Virginia Robertson M.D. Pager: [phone] [facility] [address] [place] [address] [address] [place] [address] Office: [phone] Procedure Criteria Type of Procedure Procedure Type: Elective Elective Risks - COVID COVID Risk Discussion: The surgeon/proceduralist and patient have discussed in detail the risk of exposure to and/or potential harm posed by the COVID-19 virus with having a surgery/procedure at this time versus the risk of delaying the surgery/procedure. It is not possible to know either the risk of delaying the surgery or procedure or chance of getting an infection with perfect accuracy, but a joint decision was made between the patient and the surgeon/proceduralist to proceed at this time with the scheduled surgery/procedure as indicated on the consent form.
--- NOTE | 2021-12-13 09:35 | HERN_PTH ---
PATIENT: ANI KEARNEY LOC: [facility] U#:[id number] AGE/SX: 31/F ROOM: RE12/13/[address]: Dr. Virginia Robertson MD : 1990 BED: DIS: 12/13/2021 SPEC #: [id number] RECD: 12/13/21 17:24 STATUS: FARIBA REJennifer #: [id number] CODIE: 12/13/21 09:[address]: Virginia Robertson DEPT: SURGICAL PATHOLOGY RECD BY: Jovani Albarran ENTERED: 12/17/21 10:09 SP TYPE: Hernia OTHR DR: Dr. Wes Ho MD Tissues: HERNIA Procedures: Surgery Specimen Level II HEADER OPERATION: Umbilical hernia repair with mesh PRE-OP DIAGNOSIS: Umbilical hernia TISSUE SUBMITTED: Hernia sac MICROSCOPIC DIAGNOSIS Hernia sac, herniorrhaphy: Fibrosis and associated mild chronic inflammation. AM:sol 12/18/2021 MICROSCOPIC DESCRIPTION Slides are reviewed. GROSS DESCRIPTION Received in fixative is one container labeled with the patient's name and designated hernia sac. The specimen consists of a glistening fragment of thorne-yellow soft tissue measuring 12 x 2.5 x 1 cm. Serial sections do not reveal mass lesions. Car Hopper sections are submitted in one cassette. / AM:sol 12/17/2021 TC:5 CPT: 77545
--- NOTE | 2021-12-13 11:02 | PCM.OPRPT ---
Report of Operation Date of Procedure: 12/13/21 Pre-Operative Diagnosis: Incarcerated umbilical hernia Post-Operative Diagnosis: Same Surgery/Procedure Performed:: Umbilical hernia repair with mesh Surgeon: Virginia Robertson farm management adviser: Alan Dozier Type of Anesthesia: General/Supplemental Anesthesiologist: Tr Conway Special Medications: Ancef 2 g IV x1 Specimen's removed: Hernia sac Estimated Blood Loss (mL): < 10 cc Description of Procedure: Patient was brought into the room placed supine on the operating table. Correct patient, procedure, site, positioning, special, was verified prior to procedure. General anesthesia was induced. The abdomen was prepped draped in usual sterile fashion. A curvilinear incision was made below the umbilicus with a 15 blade scalpel. This was deepened with electrocautery. A hemostat was used to go around the stalk of the umbilicus and Metzenbaum scissors was used to carefully divide the hernia sac from the skin of the umbilicus. The hernia sac was entered-no injury upon entering. Additional adhesions were lysed between the omentum and hernia sac. The omentum was reduced back in the abdomen. The fascia around the hernia defect was cleared and the hernia defect measured 2 cm x [address] hernia patch 8 cm diameter was chosen. This was secured laterally and superiorly/inferiorly with an interrupted 1 Prolene. The hernia defect was closed with 2 fggons-[id number] 1 Prolene sutures. The wound was irrigated with saline. Hemostasis was assured. The skin of the umbilicus was secured to the fascia using 3-0 Vicryl suture interrupted. The incision was closed with 3-0 Vicryl subdermal interrupted sutures and the skin was closed with interrupted 4-0 Monocryl sutures. Steri-Strips and Tegaderm and OpSite were placed over the incision once sterile cotton balls were placed in the umbilicus. Patient was extubated. Patient tolerated procedure well and was taken to the postanesthesia care unit in stable condition. Grafts/Implants Used: Large Ventralex ST hernia patch 8 cm diameter Lot [id number] Complications none
[2021-12-13] MEDS: Bupivacaine Mpf 0.5% 30 ML VIAL (11:06)
--- NOTE | 2021-12-13 11:07 | DCINST_ITS ---
Discharge Instructions Diet Discharge Diet: Light diet - advance as tolerated Activity May shower in (days): 5 (Keep umbilical dressing clean dry and intact for 5 days. Okay to tape off with a Ziploc bag to shower. Or lower shower and upper sponge bath.) Lifting Restrictions: no lifting >20 lbs x 2 wks, no strenuous exercise for 4 wks Additional Activity Instructions:: - Dressing / Incision Call your doctor if your incision/area has: Continuous Slow Oozing, Sudden Increased Bleeding, Increased Pain/ Swelling, Increased Redness, Foul Smelling Discharge and Swelling at the incision site Call your doctor if you observe: Fever of 101 or Higher Remove Dressing in: 5 days (After 5 days okay to remove surgical dressing. Place cotton ball or rolled up gauze in bellybutton and retape daily for 2 more days.) Cleanse incision/area with: Do not get Incision Wet (for 5 days) Additional Dressing/Incision Instructions:: Steri-Strips will fall off in 7 to 10 days, if they do not fall off okay to remove after 10 days. Follow Up Care Please Follow Up With: Virginia Robertson MD When: Call the office for a follow-up appointment 2 weeks; after 5 PM and on the weekends call [phone] with any concerns. Test Results: Test results from this visit will be discussed in further detail at your follow- up appointment, if applicable. Discharge Plan Admission Attending Provider: Virginia Robertson Primary Care Provider: Wes Ho Instructions Additional Instructions / Restrictions: Okay to take ibuprofen 400-600 mg PO q6hr PRN along with the Percocet. Avoid Tylenol since there is already Tylenol in the Percocet. Take all pain meds with food. Percocet can cause constipation recommend taking daily stool softener (i.e. Colace/docusate) while taking the pain meds. Recommend starting some MiraLAX in 1 to 2 days if no bowel movement. If still no bowel movement the following day recommend taking magnesium citrate half the bottle and waiting 4-6 hours if still no results take the other half the bottle. Discharge Orders/Prescriptions Prescriptions: New oxycodone-acetaminophen 5-325 mg tablet 1 tab PO Q6H PRN (Reason: pain) 3 Days Qty: 14 0RF Continued pantoprazole 40 mg tablet,delayed release (DR/EC) 40 mg PO BID Qty: 180 2RF Referrals / Follow Up: Wes Ho MD [Primary Care Provider] - Disposition Disposition (needs filled in before D/C Order can be placed): Home, Self Care
== END 2021-12-13 14:03 | disposition home or self-care (01) ==
LOC: SDC 07:59 → AC 08:00
PROVIDERS: PCP Internal Medicine; Referring Provider Internal Medicine; Visit Provider Surgery
PROC: (CPT 49587; principal; 2021-12-13 09:20)
DX: K42.9 Umbilical hernia without obstruction or gangrene (principal); Z90.49 Acquired absence of other specified parts of digestive tract; Z82.49 Family history of ischemic heart disease and other diseases of the circulatory system
CPT/HCPCS: 49587; 00750; 88302; J7120; C1781; J2405

== ENCOUNTER → 2022-01-15 | Outpatient (CLI) | payer OTHER, BC, SELFPAY ==
[2022-01-15 18:54] LABS: Cholesterol 233 mg/dL (200); High Density Lipoprotein 38 mg/dL; Triglycerides 472 mg/dL
[2022-01-15 19:16] LABS: ALB/GLOB Ratio 1.1 RATIO (0.9-2.4); AST(SGOT) 28 U/L (15-37); Alanine Aminotransfer ALT/SGPT 43 U/L (13-56); Albumin, Serum 3.8 g/dL (3.2-5.0); Alkaline Phosphatase 55 U/L (45-117); Anion Gap 7 (5-15); BUN 14 mg/dL (7-18); BUN/Creat Ratio 17.1 RATIO (10-20); Chloride 106 mmol/L (98-107); Creatinine, Serum 0.82 mg/dL (0.55-1.02); EST Glomerular Filtration Rate 87 mL/min (>60); Est Glom Filt Rate - Afr Amer 105 mL/min (>60); Globulin 3.5 g/dL (2.2-4.2); Glucose 107 mg/dL (74-106); Potassium 3.7 mmol/L (3.5-5.1); Protein, Total 7.3 g/dL (6.4-8.2); Sodium Level 138 mmol/L (136-145)
== END | disposition home or self-care (01) ==
LOC: LAB 17:13
PROVIDERS: PCP Internal Medicine; Visit Provider Internal Medicine
DX: R74.8 Abnormal levels of other serum enzymes (principal)
CPT/HCPCS: 36415; 80053; 80061

== ENCOUNTER → 2022-04-29 | Outpatient (CLI) | payer OTHER, BC, SELFPAY ==
[2022-04-29 09:54] LABS: Absolute Neutrophil Count 5.8 X10^3/uL (2.0-7.7); Basophil# 0.04 X10^3/uL; Basophil% 0.4 % (0-1); Eosinophil# 0.43 X10^3/uL; Eosinophils% 4.4 % (0-5); Hematocrit 37.7 % (37-47); Hemoglobin 12.7 g/dL (12.0-15.0); Lymphocyte % 27.9 % (19-41); Mean Corp Hgb Conc 33.7 g/dL (32-36); Mean Corpuscular Hgb 30.4 pg (27.0-32.0); Mean Corpuscular Volume 90.2 fL (81-99); Mean Platelet Vol. 10.3 fl (6.2-12.0); Monocyte# 0.63 X10^3/uL; Monocyte% 6.5 % (0-10); NRBC Flagged by Analyzer 0 % (0-5); Neutrophil # 5.83 X10^3/uL (2.7-7.7); Neutrophil % 60.4 % (47-70); Platelet Count 275 K/mm3 (150-450); RBC Distribution Width CV 12.6 % (11.6-14.6); RBC Distribution Width SD 41.3 fl (35.1-43.9); Red Blood Count 4.18 M/mm3 (4.2-5.4); White Blood Count 9.7 K/mm3 (4.4-11.0)
[2022-04-29 10:36] LABS: AST(SGOT) 20 U/L (15-37); Alanine Aminotransfer ALT/SGPT 29 U/L (13-56); Albumin, Serum 3.6 g/dL (3.2-5.0); Alkaline Phosphatase 57 U/L (45-117); Anion Gap 7 (5-15); BUN 11 mg/dL (7-18); BUN/Creat Ratio 15.4 RATIO (10-20); Chloride 107 mmol/L (98-107); Cholesterol 187 mg/dL (200); Creatinine, Serum 0.71 mg/dL (0.55-1.02); EST Glomerular Filtration Rate 101 mL/min (>60); Est Glom Filt Rate - Afr Amer 123 mL/min (>60); Globulin 3.5 g/dL (2.2-4.2); Glucose 103 mg/dL (74-106); High Density Lipoprotein 43 mg/dL; Potassium 4.2 mmol/L (3.5-5.1); Protein, Total 7.1 g/dL (6.4-8.2); Sodium Level 141 mmol/L (136-145); Triglycerides 225 mg/dL; Very Low Density Lipoprotein 45 mg/dL (5-40)
== END | disposition home or self-care (01) ==
LOC: LAB 09:04
PROVIDERS: PCP Internal Medicine; Referring Provider Internal Medicine; Visit Provider Internal Medicine
DX: E78.5 Hyperlipidemia, unspecified (principal); K21.9 Gastro-esophageal reflux disease without esophagitis; R74.8 Abnormal levels of other serum enzymes
CPT/HCPCS: 36415; 80053; 80061; 85025

== ENCOUNTER → 2022-05-29 | Outpatient (CLI) | payer OTHER, BC, SELFPAY | END | disposition home or self-care (01) | LOC: LABSPEC 10:18 | PROVIDERS: PCP Internal Medicine; Referring Provider Physician Assistant; Visit Provider Physician Assistant | DX: R05.9 Cough, unspecified (principal) | CPT/HCPCS: 87635; U0003; U0005 ==

== ENCOUNTER → 2022-12-24 | Outpatient (CLI) | payer OTHER, BC, SELFPAY ==
[2022-12-24 12:44] LABS: Anion Gap 5 (5-15); BUN 11 mg/dL (7-18); BUN/Creat Ratio 13.1 RATIO (10-20); Calcium,Total 8.8 mg/dL (8.5-10.1); Chloride 109 mmol/L (98-107); Creatinine, Serum 0.84 mg/dL (0.55-1.02); EST Glomerular Filtration Rate 84 mL/min (>60); Est Glom Filt Rate - Afr Amer 101 mL/min (>60); Glucose 118 mg/dL (74-106); Potassium 3.8 mmol/L (3.5-5.1); Sodium Level 138 mmol/L (136-145)
[2022-12-24 12:58] LABS: Hemoglobin A1c 5.3 % (3.8-5.6)
== END | disposition home or self-care (01) ==
LOC: BIMLAB 10:18
PROVIDERS: PCP Internal Medicine; Visit Provider Internal Medicine
DX: I10 Essential (primary) hypertension (principal); E66.01 Morbid (severe) obesity due to excess calories
CPT/HCPCS: 36415; 80048; 83036

== ENCOUNTER 2023-01-05 17:30 | Outpatient (RCR) | payer SELFPAY | END 2023-01-12 23:59 | LOC: NS 17:30 | PROVIDERS: PCP Internal Medicine | DX: Z71.3 Dietary counseling and surveillance (principal); E11.9 Type 2 diabetes mellitus without complications ==

== ENCOUNTER → 2023-05-27 | Outpatient (CLI) | payer OTHER, BC, SELFPAY ==
[2023-05-27 12:21] LABS: Absolute Lymphocyte Count 2.55 X10^3/uL (0.83-4.51); Absolute Neutrophil Count 4.3 X10^3/uL (2.0-7.7); Basophil# 0.05 X10^3/uL; Basophil% 0.7 % (0-1); Eosinophils% 2.6 % (0-5); Hematocrit 36.8 % (37-47); Hemoglobin 12.7 g/dL (12.0-15.0); Lymphocyte # 2.55 X10^3/ul (0.83-4.51); Lymphocyte % 33.8 % (19-41); Mean Corp Hgb Conc 34.5 g/dL (32-36); Mean Corpuscular Hgb 30.9 pg (27.0-32.0); Mean Corpuscular Volume 89.5 fL (81-99); Mean Platelet Vol. 10.1 fl (6.2-12.0); Monocyte# 0.45 X10^3/uL; NRBC Flagged by Analyzer 0 % (0-5); Neutrophil # 4.27 X10^3/uL (2.7-7.7); Neutrophil % 56.5 % (47-70); Platelet Count 265 K/mm3 (150-450); RBC Distribution Width CV 12.4 % (11.6-14.6); RBC Distribution Width SD 40.4 fl (35.1-43.9); Red Blood Count 4.11 M/mm3 (4.2-5.4); White Blood Count 7.6 K/mm3 (4.4-11.0)
[2023-05-27 13:28] LABS: ALB/GLOB Ratio 1.1 RATIO (0.9-2.4); AST(SGOT) 20 U/L (15-37); Alanine Aminotransfer ALT/SGPT 31 U/L (13-56); Albumin, Serum 3.7 g/dL (3.2-5.0); Alkaline Phosphatase 50 U/L (45-117); Anion Gap 5 (5-15); BUN 12 mg/dL (7-18); BUN/Creat Ratio 17.4 RATIO (10-20); Calcium,Total 8.7 mg/dL (8.5-10.1); Chloride 108 mmol/L (98-107); Cholesterol 195 mg/dL (200); Creatinine, Serum 0.69 mg/dL (0.55-1.02); EST Glomerular Filtration Rate 105 mL/min (>60); Est Glom Filt Rate - Afr Amer 127 mL/min (>60); Globulin 3.4 g/dL (2.2-4.2); Glucose 99 mg/dL (74-106); High Density Lipoprotein 40 mg/dL; Potassium 3.9 mmol/L (3.5-5.1); Protein, Total 7.1 g/dL (6.4-8.2); Sodium Level 141 mmol/L (136-145); Triglycerides 333 mg/dL; Very Low Density Lipoprotein 67 mg/dL (5-40)
== END | disposition home or self-care (01) ==
LOC: BIMLAB 11:20
PROVIDERS: PCP Internal Medicine; Referring Provider Internal Medicine; Visit Provider Internal Medicine
DX: Z00.00 Encounter for general adult medical examination without abnormal findings (principal)
CPT/HCPCS: 36415; 80053; 80061; 85025

== ENCOUNTER → 2024-01-14 | Outpatient (CLI) | payer OTHER, BC, SELFPAY | END | disposition home or self-care (01) | LOC: LABSPEC 14:37 | PROVIDERS: PCP Internal Medicine; Referring Provider Nurse Practitioner; Visit Provider Nurse Practitioner | DX: R30.0 Dysuria (principal) | CPT/HCPCS: 87077; 87086; 87088; 87186 ==

== ENCOUNTER → 2024-02-19 | Outpatient (CLI) | payer OTHER, BC, SELFPAY ==
[2024-02-19 11:52] LABS: Absolute Lymphocyte Count 2.59 X10^3/uL (0.83-4.51); Basophil# 0.07 X10^3/uL; Basophil% 0.8 % (0-1); Eosinophil# 0.22 X10^3/uL; Eosinophils% 2.6 % (0-5); Hematocrit 38.1 % (37-47); Hemoglobin 12.9 g/dL (12.0-15.0); Lymphocyte # 2.59 X10^3/ul (0.83-4.51); Lymphocyte % 30.8 % (19-41); Mean Corp Hgb Conc 33.9 g/dL (32-36); Mean Corpuscular Hgb 31.1 pg (27.0-32.0); Mean Corpuscular Volume 91.8 fL (81-99); Mean Platelet Vol. 10.6 fl (6.2-12.0); Monocyte# 0.45 X10^3/uL; Monocyte% 5.4 % (0-10); NRBC Flagged by Analyzer 0 % (0-5); Neutrophil # 5.03 X10^3/uL (2.7-7.7); Neutrophil % 59.8 % (47-70); Platelet Count 306 K/mm3 (150-450); RBC Distribution Width CV 12.9 % (11.6-14.6); Red Blood Count 4.15 M/mm3 (4.2-5.4); White Blood Count 8.4 K/mm3 (4.4-11.0)
[2024-02-19 12:42] LABS: ALB/GLOB Ratio 1.1 RATIO (0.9-2.4); AST(SGOT) 16 U/L (15-37); Alanine Aminotransfer ALT/SGPT 27 U/L (13-56); Albumin, Serum 3.9 g/dL (3.2-5.0); Alkaline Phosphatase 51 U/L (45-117); Anion Gap 7 (5-15); BUN 14 mg/dL (7-18); BUN/Creat Ratio 16.3 RATIO (10-20); Calcium,Total 9.2 mg/dL (8.5-10.1); Chloride 106 mmol/L (98-107); Creatinine, Serum 0.86 mg/dL (0.55-1.02); EST Glomerular Filtration Rate 81 mL/min (>60); Est Glom Filt Rate - Afr Amer 98 mL/min (>60); Globulin 3.5 g/dL (2.2-4.2); Glucose 103 mg/dL (74-106); Protein, Total 7.4 g/dL (6.4-8.2); Sodium Level 138 mmol/L (136-145)
== END | disposition home or self-care (01) ==
LOC: BIMLAB 09:31
PROVIDERS: PCP Internal Medicine; Referring Provider Internal Medicine; Visit Provider Internal Medicine
DX: I10 Essential (primary) hypertension (principal)
CPT/HCPCS: 36415; 80053; 85025

== ENCOUNTER → 2024-03-23 | Outpatient (CLI) | payer OTHER, BC, SELFPAY ==
[2024-03-23 12:39] LABS: Absolute Lymphocyte Count 2.41 X10^3/uL (0.83-4.51); Absolute Neutrophil Count 4.8 X10^3/uL (2.0-7.7); Basophil# 0.05 X10^3/uL; Basophil% 0.6 % (0-1); Eosinophil# 0.18 X10^3/uL; Eosinophils% 2.3 % (0-5); Hematocrit 37.8 % (37-47); Hemoglobin 12.7 g/dL (12.0-15.0); Lymphocyte # 2.41 X10^3/ul (0.83-4.51); Lymphocyte % 30.4 % (19-41); Mean Corp Hgb Conc 33.6 g/dL (32-36); Mean Corpuscular Hgb 30.5 pg (27.0-32.0); Mean Corpuscular Volume 90.6 fL (81-99); Mean Platelet Vol. 10.5 fl (6.2-12.0); Monocyte# 0.43 X10^3/uL; Monocyte% 5.4 % (0-10); NRBC Flagged by Analyzer 0 % (0-5); Neutrophil # 4.84 X10^3/uL (2.7-7.7); Platelet Count 296 K/mm3 (150-450); RBC Distribution Width CV 12.5 % (11.6-14.6); RBC Distribution Width SD 41.1 fl (35.1-43.9); Red Blood Count 4.17 M/mm3 (4.2-5.4); White Blood Count 7.9 K/mm3 (4.4-11.0)
[2024-03-23 13:13] LABS: ALB/GLOB Ratio 1.1 RATIO (0.9-2.4); AST(SGOT) 17 U/L (15-37); Alanine Aminotransfer ALT/SGPT 26 U/L (13-56); Albumin, Serum 3.7 g/dL (3.2-5.0); Alkaline Phosphatase 55 U/L (45-117); Anion Gap 10 (5-15); BUN 9 mg/dL (7-18); BUN/Creat Ratio 9.9 RATIO (10-20); Calcium,Total 9.1 mg/dL (8.5-10.1); Chloride 107 mmol/L (98-107); Creatinine, Serum 0.91 mg/dL (0.55-1.02); EST Glomerular Filtration Rate 76 mL/min (>60); Est Glom Filt Rate - Afr Amer 92 mL/min (>60); Globulin 3.4 g/dL (2.2-4.2); Glucose 111 mg/dL (74-106); Potassium 3.8 mmol/L (3.5-5.1); Protein, Total 7.1 g/dL (6.4-8.2); Sodium Level 140 mmol/L (136-145)
== END | disposition home or self-care (01) ==
LOC: BIMLAB 09:35
PROVIDERS: PCP Internal Medicine; Referring Provider Internal Medicine; Visit Provider Internal Medicine
DX: I10 Essential (primary) hypertension (principal)
CPT/HCPCS: 36415; 80053; 85025

== ENCOUNTER → 2024-07-04 | Outpatient (CLI) | payer OTHER, BC, SELFPAY ==
[2024-07-04 12:00] LABS: Absolute Lymphocyte Count 2.38 X10^3/uL (0.83-4.51); Absolute Neutrophil Count 4.6 X10^3/uL (2.0-7.7); Basophil# 0.04 X10^3/uL; Basophil% 0.5 % (0-1); Eosinophils% 2.6 % (0-5); Hematocrit 38.8 % (37-47); Hemoglobin 12.7 g/dL (12.0-15.0); Lymphocyte # 2.38 X10^3/ul (0.83-4.51); Lymphocyte % 31.4 % (19-41); Mean Corp Hgb Conc 32.7 g/dL (32-36); Mean Corpuscular Hgb 29.3 pg (27.0-32.0); Mean Corpuscular Volume 89.6 fL (81-99); Monocyte# 0.39 X10^3/uL; Monocyte% 5.1 % (0-10); NRBC Flagged by Analyzer 0 % (0-5); Neutrophil # 4.55 X10^3/uL (2.7-7.7); Platelet Count 307 K/mm3 (150-450); RBC Distribution Width CV 12.7 % (11.6-14.6); RBC Distribution Width SD 41.2 fl (35.1-43.9); Red Blood Count 4.33 M/mm3 (4.2-5.4); White Blood Count 7.6 K/mm3 (4.4-11.0)
[2024-07-04 12:31] LABS: ALB/GLOB Ratio 1.1 RATIO (0.9-2.4); AST(SGOT) 25 U/L (15-37); Alanine Aminotransfer ALT/SGPT 38 U/L (13-56); Alkaline Phosphatase 56 U/L (45-117); Anion Gap 7 (5-15); BUN 13 mg/dL (7-18); BUN/Creat Ratio 14.3 RATIO (10-20); Calcium,Total 9.5 mg/dL (8.5-10.1); Chloride 106 mmol/L (98-107); Cholesterol 254 mg/dL (200); Creatinine, Serum 0.91 mg/dL (0.55-1.02); EST Glomerular Filtration Rate 76 mL/min (>60); Est Glom Filt Rate - Afr Amer 92 mL/min (>60); Globulin 3.7 g/dL (2.2-4.2); Glucose 104 mg/dL (74-106); High Density Lipoprotein 52 mg/dL; Potassium 3.7 mmol/L (3.5-5.1); Protein, Total 7.7 g/dL (6.4-8.2); Sodium Level 140 mmol/L (136-145); Triglycerides 303 mg/dL; Very Low Density Lipoprotein 61 mg/dL (5-40)
== END | disposition home or self-care (01) ==
LOC: BIMLAB 09:57
PROVIDERS: PCP Internal Medicine; Referring Provider Internal Medicine; Visit Provider Internal Medicine
DX: I10 Essential (primary) hypertension (principal); E78.5 Hyperlipidemia, unspecified
CPT/HCPCS: 36415; 80053; 80061; 85025

== ENCOUNTER → 2025-01-09 | Outpatient (CLI) | payer OTHER, BC, SELFPAY ==
[2025-01-09 12:42] LABS: Hematocrit 37.2 % (37-47); Hemoglobin 12.9 g/dL (12.0-15.0); Immature Granulocytes Count 0.050 X10^3/uL (0.0-0.0); Mean Corp Hgb Conc 34.7 g/dL (32-36); Mean Corpuscular Volume 88.4 fL (81-99); Mean Platelet Vol. 10.5 fl (6.2-12.0); NRBC Flagged by Analyzer 0 % (0-5); Platelet Count 290 K/mm3 (150-450); RBC Distribution Width CV 13.0 % (11.6-14.6); RBC Distribution Width SD 42.2 fl (35.1-43.9); Red Blood Count 4.21 M/mm3 (4.2-5.4); White Blood Count 8.6 K/mm3 (4.4-11.0)
[2025-01-09 13:35] LABS: AST(SGOT) 21 U/L (<=31); Alanine Aminotransfer ALT/SGPT 21 U/L (<=34); Albumin, Serum 4.3 g/dL (3.5-5.0); Alkaline Phosphatase 59 U/L (35-104); Anion Gap 13 (5-15); BUN 10 mg/dL (4-19); BUN/Creat Ratio 12.7 RATIO (10-20); Calcium,Total 9.4 mg/dL (7.6-11.0); Carbon Dioxide 24.4 mmol/L (21.0-32.0); Chloride 102 mmol/L (98-108); Cholesterol 202 mg/dL (<=200); Globulin 2.6 g/dL (2.2-4.2); Glucose 110 mg/dL (70-99); Low Density Lipoprotein Calc. 88 mg/dL; Potassium 4.2 mmol/L (3.3-5.1); Triglycerides 357 mg/dL; Very Low Density Lipoprotein 71 mg/dL (5-40); cholesterol:hdl ratio screen 4.71
== END | disposition home or self-care (01) ==
LOC: BIMLAB 09:44
PROVIDERS: PCP Internal Medicine; Referring Provider Internal Medicine; Visit Provider Internal Medicine
DX: I10 Essential (primary) hypertension (principal); E78.5 Hyperlipidemia, unspecified
CPT/HCPCS: 36415; 80053; 80061; 83036; 85025

== ENCOUNTER → 2025-05-25 | Outpatient (CLI) | payer OTHER, BC, SELFPAY ==
[2025-05-25 07:39] LABS: Mucous, Urine 0 SEEN /hpf (<or=2+); Red Blood Cells-Urine 0 SEEN /hpf (0-5)
--- OUTSIDE RECORDS SUMMARY | 2025-05-25 07:53 | XMS RPT_ITS | CCD ---
Author Organization [facility] Care Team Providers Care Environmental Services Lead Name Role Phone PROVIDER, UNKNOWN Admitting Unavailable PROVIDER, UNKNOWN Attending Unavailable Care Physician, No Primary Primary Care Provider Unavailable Dr. Aly Muñoz Attending Provider [phone] Dr. Aly Muñoz Referring Provider [phone] Dr. Gissel Ndiaye Emergency Provider Dr. Virginia Robertson Admit Provider Dr. Virginia Robertson Attending Provider [phone] Dr. Virginia Robertson Other Provider Care Physician, No Primary Referring Provider Un available Dr. Wes Ho Attending Provider [phone] Jerri Mauricio Attending Provider Unavailable Dr. Wes Ho Referring Provider [phone] Dr. Wes Ho Primary Care Provider 1([phone]) Care Physician, No Primary Primary Care Provider Unavailable Dr. Virginia Robertson Attending Provider [phone] Dr. Virginia Robertson Other Provider Care Physician, No Primary Referring Provider Un available Dr. Wes Ho Primary Care Provider 1(33 0) Dr. Wes Ho Attending Provider [phone] Dr. Wes Ho Referring Provider [phone] Dr. Wes Ho Primary Care Provider 1(33 0) Dr. Wes Ho Attending Provider [phone] TIM Le Attending Provider Unavailab bethel Ho, Dr. Harvey Primary Care Provider 1(33 0) Dr. Wes Ho Attending Provider [phone] [place], Dr. Harvey Referring Provider [phone] Wes Ho MD Primary Care Provider [phone]) [place], Dr. Harvey Primary Care Provider 1(33 0) Dr. Wes Ho Attending Provider [phone] [place], Dr. Harvey Referring Provider [phone] [place] ROLLE, Dr. Harvey Primary Care Provider [place] ROLLE, Dr. Harvey Attending Provider [phone] 0) [place] ROLLE, Dr. Harvey Referring Provider 1(33 0) JOSÉ MIGUEL SAUNDERS Attending Unavailable SELF, SELF Referring Unavailable OLEGHE, EFEWONGBE B Primary Care Unavailable JORDAN, GALILEA Attending Unavailable OLEGHE, EFEWONGBE B Primary Care Unavailable JORDANELLENGALILEA Attending Unavailable OLEGHE, EFEWONGBE B Primary Care Unavailable Oleghe, Efewongbe Attending Unavailable Oleghe, Efewongbe Referring Unavailable Oleghe, Efewongbe Primary Care Unavailable Oleghe, Efewongbe Primary Care Unavailable Oleghe, Efewongbe Attending Unavailable Oleghe, Efewongbe Referring Unavailable Oleghe, Efewongbe Attending Unavailable Oleghe, Efewongbe Referring Unavailable Oleghe, Efewongbe Primary Care Unavailable Oleghe, Efewongbe Primary Care Unavailable Oleghe, Efewongbe Attending Unavailable Oleghe, Efewongbe Referring Unavailable Oleghe, Efewongbe Primary Care Unavailable Oleghe, Efewongbe Attending Unavailable Oleghe, Efewongbe Referring Unavailable Oleghe, Efewongbe Attending Unavailable Oleghe, Efewongbe Referring Unavailable Oleghe, Efewongbe Primary Care Unavailable Medications Current Medications Medication Drug Class(es) Dates Sig (Normalized) Sig (Original) amoxicillin 875 mg oral tablet (1 source) Penicillin-class Antibacterial Start: 09-01-2024 End: 09-08-2024 take 1 tablet by mouth twice daily amoxicillin (AMOXIL) 875 mg tablet Take 1 tablet by mouth two times a day for 7 days. 14 tablet 09/01/2024 09/08/2024 Active amoxicillin 875 mg / clavulanate 125 mg oral tablet (7 sources) Penicillin-class Antibacterial Start: 12-24-2023 End: 12-31-2023 take 1 tablet by mouth twice daily amoxicillin-clavu lanate potassium (AUGMENTIN) 875-125 mg per tablet Take 1 tablet by mouth two times a day for 7 days. 14 tablet 0 12/24/2023 12/31/2023 Active Start: 05-29-2022 End: 08-13-2022 Amoxicillin-Pot Clavulanate 875-125 mg tablet Discontinued 1 {tbl} PO TWICE A DAY 20 May 29, 2022 1:00am August 13, 2022 6:49pm Start: 05-29-2022 End: 08-13-2022 take 1 tablet by mouth twice daily Amoxicillin-Pot Clavulanate Discontinued 1 TABLET PO TWICE A DAY May 29, 2022 12:00am August 13, 2022 5:49pm 12 hr buPROPion hydrochloride 150 mg extended release oral tablet (20 sources) Aminoketone Start: 11-16-2023 take 1 tablet by mouth twice daily Bupropion Hcl 150 mg tablet sustained-release 12 hr Active 150 mg PO TWICE A DAY 180 90 1 November 16, 2023 2:48pm Start: 08-04-2023 End: 11-16-2023 Bupropion Hcl 150 mg tablet sustained-release 12 hr Discontinued 150 mg PO TWICE A DAY 60 0 August 04, 2023 1:00am November 16, 2023 2:49pm Take 1 tablet daily x 1 week then increase to BID. Start: 12-24-2022 End: 05-27-2023 take 1 tablet by mouth once daily in the morning Bupropion Hcl 150 mg tablet extended release 24 hr Discontinued 150 mg PO EVERY MORNING 60 2 December 24, 2022 10:08am May 27, 2023 11:50am Start: 11-04-2022 End: 12-24-2022 take 1 tablet by mouth once daily in the morning Bupropion Hcl 300 mg tablet extended release 24 hr Discontinued 300 mg PO EVERY MORNING 60 2 November 04, 2022 12:06pm December 24, 2022 10:08am Start: 08-13-2022 End: 11-04-2022 take 1 tablet by mouth once daily in the morning Bupropion Hcl (Wellbutrin Xl) 150 mg tablet extended release 24 hr Discontinued 150 mg PO EVERY MORNING 30 2 August 13, 2022 1:00am November 04, 2022 12:06pm fluconazole 150 mg oral tablet (18 sources) Azole Antifungal Start: 09-01-2024 End: 09-02-2024 take 1 tablet by mouth once daily fluconazole (DIFLUCAN) 150 mg tablet Take 1 tablet by mouth once daily for 1 day. 1 tablet 09/01/2024 09/02/2024 Active Start: 01-14-2024 End: 02-19-2024 Fluconazole 150 mg tablet Di scontinued 150 mg PO Every 3 Days 2 January 14, 2024 12:00am February 19, 2024 8:42am october repeat second dose 72 hrs after first dose if symptoms persist Start: 05-29-2022 End: 08-13-2022 Fluconazole (Diflucan) 150 m g tablet Discontinued 150 mg PO Every 3 Days 2 May 29, 2022 1:00am August 13, 2022 6:49pm october repeat second dose 72 hrs after first dose if symptoms persist Start: 09-09-2021 End: 10-09-2021 take 1 tablet by mouth once Fluconazole (Diflucan) 150 mg tablet Discontinued 150 mg PO ONCE 1 September 09, 2021 12:00am October 09, 2021 9:57am as a single dose naltrexone hydrochloride 50 mg oral tablet (8 sources) Opioid Antagonist Start: 10-29-2023 End: 11-16-2023 take 1 tablet by mouth twice daily Naltrexone 50 mg tablet Active 25 mg PO TWICE A DAY 90 90 November 16, 2023 2:47pm Start: 08-04-2023 End: 10-29-2023 take 0.5 tablet by mouth once daily, then take 1 tablet by mouth once daily Naltrexone 50 mg tablet Discontinued 25 mg PO DAILY 60 0 August 04, 2023 1:00am October 29, 2023 9:42am Take half tablet daily x 1 month then increase to 1 tablet daily. Completed/Discontinued Medications Medication Drug Class(es) Dates Sig (Normalized) Sig (Original) acetaminophen 325 mg / oxyCODONE hydrochloride 5 mg oral tablet (18 sources) Opioid Agonist Start: 12-13-2021 End: 01-16-2022 Oxycodone-Acetaminoph en 5-325 mg tablet Discontinued 1 {tbl} PO EVERY 6 HOURS as needed for pain 14 3 0 December 13, 2021 January 16, 2022 6:17pm Postoperative pain Other acute postprocedural pain Start: 12-13-2021 End: 01-16-2022 take 1 tablet by mouth every six hours Oxycodone-Acetaminophen Discontinued 1 TABLET PO EVERY 6 HOURS 14 3 December 13, 2021 January 16, 2022 5:17pm Start: 09-07-2021 End: 10-09-2021 Oxycodone-Acetaminophen 5-32 5 mg tablet Discontinued 1 - 2 {tbl} PO EVERY 6 HOURS as needed for pain 15 3 0 September 07, 2021 October 09, 2021 9:57am Postoperative pain Other acute postprocedural pain Start: 09-07-2021 End: 10-09-2021 take 1 tablet by mouth every six hours Oxycodone-Acetaminophen Discontinued 1 - 2 TABLET PO EVERY 6 HOURS 15 3 September 07, 2021 October 09, 2021 8:57am aspirin 81 mg chewable tablet (9 sources) Platelet Aggregation Inhibitor, Nonsteroidal Anti-inflammatory Drug Start: 06-16-2021 End: 07-06-2021 take 1 tablet by mouth once daily Aspirin (Baby Aspirin) 81 mg Tablet,Chewable Discontinued 81 mg PO DAILY June 16, 2021 1:00am July 06, 2021 8:34am Check with primary doctor benzonatate 200 mg oral capsule (7 sources) Non-narcotic Antitussive Start: 05-29-2022 End: 08-13-2022 take 1 capsule by mouth three times daily as needed for cough Benzonatate 200 mg capsule Discontinued 200 mg PO THREE TIMES A DAY as needed for cough 30 May 29, 2022 1:00am August 13, 2022 6:49pm Start: 02-14-2020 End: 10-13-2023 take 1 capsule by mouth every eight hours as needed for cough and cough benzonatate (TESSALON PERLES) 100 mg capsule Indications: Cough Take 1 capsule by mouth three times daily as needed for Cough. 21 capsule 0 02/14/2020 10/13/2023 Discontinued (Course of therapy completed) 12 hr buPROPion hydrochloride 90 mg / naltrexone hydrochloride 8 mg extended release oral tablet (2 sources) Opioid Antagonist, Aminoketone Start: 07-29-2023 End: 08-04-2023 Naltrexone-Bupropion (Contrave) 8-90 mg tablet extended release Discontinued 1 {tbl} PO EVERY MORNING 60 0 July 29, 2023 1:00am August 04, 2023 5:20pm Take 1 tablet daily x 7 days then BID cephalexin 500 mg oral capsule (2 sources) Cephalosporin Antibacterial Start: 01-14-2024 End: 01-21-2024 take 1 capsule by mouth every twelve hours Cephalexin 500 mg capsule Discontinued 500 mg PO Q12H 14 7 0 January 14, 2024 12:00am January 20, 2024 12:00am January 21, 2024 12:04am Dysuria Dysuria fluticasone propionate 0.05 mg/actuat metered dose nasal spray (7 sources) Corticosteroid Start: 05-29-2022 End: 12-24-2022 take 50 ug nasal route once daily Fluticasone Propionate (Flonase Allergy Relief) 50 mcg/actuation spray,suspension Discontinued 1 NMA INTRANASAL DAILY 16 May 29, 2022 1:00am December 24, 2022 9:50am administer into each nostril Start: 05-29-2022 End: 12-24-2022 take 1 spray(s) nasal route once daily Fluticasone Propionate (Flonase Allergy Relief) 50 mcg/actuation spray,suspension Discontinued 1 SPRAY INTRANASAL DAILY May 29, 2022 12:00am December 24, 2022 8:50am administer into each nostril Start: 02-14-2020 End: 10-13-2023 take 1 spray(s) nasal route once daily at bedtime fluticasone (FLONASE) 50 mcg/actuation nasal spray Indications: Viral sinusitis Use 1 [place] in each nostril daily at bedtime. 1 Bottle 0 02/14/2020 10/13/2023 Discontinued (Course of therapy completed) 3 ml liraglutide 6 mg/ml pen injector (5 sources) GLP-1 Receptor Agonist Start: 12-24-2022 End: 05-27-2023 Liraglutide (Weight Loss) (Saxenda) 3 mg/0.5 mL (18 mg/3 mL) pen injector Discontinued 0 SC .COMPLEX 15 December 24, 2022 12:00am May 27, 2023 11:50am inject subcutaneously once daily: week 1 = 0.6 mg; week 2 = 1.2 mg; week 3 = 1.8 mg; week 4 = 2.4 mg; then 3 mg daily subcut omeprazole 40 mg delayed release oral capsule (15 sources) Proton Pump Inhibitor Start: 01-29-2017 End: 10-13-2023 take 1 capsule by mouth once daily Omeprazole 40 mg capsule,delayed release(DR/EC) Discontinued 40 mg PO DAILY 90 July 01, 2022 1:00am January 08, 2023 4:39pm pantoprazole 40 mg delayed release oral tablet (20 sources) Proton Pump Inhibitor Start: 01-08-2023 End: 04-28-2024 take 1 tablet by mouth once daily Pantoprazole (Protonix) 40 mg tablet,delayed release (DR/EC) Discontinued 40 mg PO DAILY 90 April 29, 2023 4:48pm April 28, 2024 11:08am Start: 01-16-2022 End: 07-01-2022 take 1 tablet by mouth once daily Pantoprazole 40 mg tablet,delayed release (DR/EC) Discontinued 40 mg PO DAILY 90 January 16, 2022 6:43pm July 01, 2022 2:59pm Start: 10-09-2021 End: 01-16-2022 take 1 tablet by mouth twice daily Pantoprazole 40 mg tablet,delayed release (DR/EC) Discontinued 40 mg PO TWICE A DAY 180 October 09, 2021 12:00am January 16, 2022 6:43pm phentermine hydrochloride 37.5 mg oral tablet (6 sources) Sympathomimetic Amine Anorectic Start: 02-19-2024 End: 01-09-2025 Phentermine 37.5 mg tablet Discontinued 18.75 mg PO daily 30 May 04, 2024 6:20pm January 09, 2025 9:39am must administer 30 minutes before or 1-2 hours after breakfast predniSONE 10 mg oral tablet (3 sources) Start: 12-24-2023 End: 10-17-2024 predniSONE (DELTASONE) 10 mg tablet Take 4 tabs daily for 3 days, then 2 tabs daily for 3 days, then 1 tab daily for 3 days with food. 21 tablet 12/24/2023 10/17/2024 Discontinued (Course of therapy completed) Semaglutide (5 sources) Start: 10-20-2022 End: 12-24-2022 Semaglutide 0.25 mg or 0.5 mg (2 mg/3 mL) pen injector Discontinued 0.25 mg SC EVERY WEEK 3 October 20, 2022 12:00am December 24, 2022 9:50am for 4 weeks; then increase to 0.5 mg every week Start: 10-20-2022 End: 12-24-2022 Semaglutide Discontinued 0.2 5 MG SC EVERY WEEK 3 October 19, 2022 11:00pm December 24, 2022 8:50am for 4 weeks; then increase to 0.5 mg every week Start: 10-20-2022 End: 12-24-2022 Semaglutide Discontinued 0.2 5 MG SC EVERY WEEK October 20, 2022 12:00am December 24, 2022 9:50am for 4 weeks; then increase to 0.5 mg every week Tirzepatide (Weight Loss) (3 sources) Start: 05-27-2023 End: 06-24-2023 Tirzepatide (Weight Loss) (Z epbound) 2.5 mg/0.5 mL pen injector Discontinued 2.5 mg SC EVERY WEEK 2 May 27, 2023 1:00am June 23, 2023 1:00am June 24, 2023 1:04am Start: 05-27-2023 Tirzepatide (W eight Loss) (Zepbound) 2.5 mg/0.5 mL pen injector Active 2.5 MG SC EVERY WEEK 2 May 27, 2023 12:00am topiramate 50 mg oral tablet (10 sources) Start: 11-04-2022 End: 05-27-2023 take 1 tablet by mouth twice daily Topiramate 50 mg tablet Discontinued 50 mg PO TWICE A DAY 60 2 November 04, 2022 12:06pm May 27, 2023 11:50am Start: 08-13-2022 End: 05-23-2023 take 1 tablet by mouth twice daily Topiramate (Topamax) 25 mg tablet Discontinued 25 mg PO TWICE A DAY 60 2 August 13, 2022 1:00am November 04, 2022 12:06pm Problems Active Problems Problem Classification Problem Date Documented Date Episodic/Chronic Abdominal hernia (15 sources) Umbilical hernia; Translations: [Umbilical hernia without obstruction or gangrene] Episodic Abdominal pain (9 sources) Right lower quadrant pain; Translations: [Right lower quadrant pain] 07-05-2021 Episodic Allergic reactions (1 source) Allergic contact dermatitis caused by plant material; Translations: [Allergic contact dermatitis due to plants, except food] 12-24-2023 Episodic Biliary tract disease (10 sources) Acute cholecystitis; Translations: [Acute cholecystitis] Episodic Contraceptive and procreative management (10 sources) Patient encounter status; Translations: [Encounter for sterilization] 07-05-2021 Episodic Diabetes mellitus without complication (1 source) Hyperglycemia; Translations: [Hyperglycemia, unspecified] 01-09-2025 Episodic Disorders of lipid metabolism (20 sources) Hyperlipidemia; Translations: [Hyperlipidemia, unspecified] Onset: 11-07-2011 Chronic Esophageal disorders (19 sources) Gastroesophageal reflux disease; Translations: [Gastro-esophageal reflux disease without esophagitis] Onset: 01-19-2018 Chronic Essential hypertension (16 sources) Hypertensive disorder; Translations: [Essential (primary) hypertension] Onset: 01-17-2025 Chronic Genitourinary symptoms and ill-defined conditions (4 sources) Mixed urinary incontinence; Translations: [Mixed incontinence] Onset: 04-12-2021 04-12-2021 Chronic Genitourinary symptoms and ill-defined conditions (2 sources) Dysuria; Translations: [Dysuria] 01-14-2024 Episodic Hypertension complicating ; childbirth and the puerperium (9 sources) Pre-eclampsia; Translations: [Unspecified pre-eclampsia, unspecified trimester] 07-05-2021 Episodic Malposition; malpresentation (9 sources) Malpresentation of fetus; Translations: [Maternal care for malpresentation of fetus, unspecified, not applicable or unspecified] 07-05-2021 Episodic Menstrual disorders (5 sources) Menorrhagia; Translations: [Excessive and frequent menstruation with regular cycle] Onset: 10-17-2024 10-17-2024 Chronic Other complications of (9 sources) Maternal obesity complicating , childbirth and the puerperium, antepartum; Translations: [Obesity complicating , unspecified trimester] 02-01-2017 Chronic Other female genital disorders (3 sources) Abnormal uterine bleeding; Translations: [Abnormal uterine and vaginal bleeding, unspecified] 10-17-2024 Chronic Other female genital disorders (1 source) Abnormal uterine and vaginal bleeding, unspecified; Translations: [Abnormal uterine bleeding (AUB)] Onset: 10-17-2024 Chronic Other liver diseases (9 sources) Elevated liver enzymes level; Translations: [Abnormal levels of other serum enzymes] 10-16-2021 Episodic Other liver diseases (4 sources) Abnormal levels of other serum enzymes; Translations: [Other nonspecific abnormal serum enzyme levels] Episodic Other nervous system disorders (3 sources) Disturbance of attention; Translations: [Attention and concentration deficit] 02-19-2024 Chronic Other nutritional; endocrine; and metabolic disorders (6 sources) Morbid obesity; Translations: [Morbid (severe) obesity due to excess calories] 10-20-2022 Chronic Other nutritional; endocrine; and metabolic disorders (6 sources) Metabolic syndrome X; Translations: [Metabolic syndrome] 12-24-2022 Chronic Other nutritional; endocrine; and metabolic disorders (6 sources) Morbid (severe) obesity due to excess calories; Translations: [Morbid obesity] Onset: 07-27-2024 10-20-2022 Chronic Other nutritional; endocrine; and metabolic disorders (2 sources) Metabolic syndrome; Translations: [Dysmetabolic syndrome X] 12-24-2022 Chronic Other nutritional; endocrine; and metabolic disorders (1 source) Severe obesity; Translations: [Morbid (severe) obesity due to excess calories] 10-13-2023 Chronic Other nutritional; endocrine; and metabolic disorders (4 sources) Obesity caused by energy imbalance; Translations: [Morbid (severe) obesity due to excess calories] Onset: 11-07-2011 09-03-2017 Chronic Other screening for suspected conditions (not mental disorders or infectious disease) (1 source) Cancer cervix screening status; Translations: [Encounter for screening for malignant neoplasm of cervix] 10-13-2023 Episodic Other skin disorders (1 source) Acanthosis nigricans; Translations: [Acanthosis nigricans] 10-13-2023 Episodic Other upper respiratory infections (12 sources) Upper respiratory infection; Translations: [Acute upper respiratory infection, unspecified] Episodic Otitis media and related conditions (2 sources) Acute bilateral otitis media ; Translations: [Otitis media, unspecified, bilateral] 12-24-2023 Episodic Pneumonia (except that caused by tuberculosis or sexually transmitted disease) (9 sources) Pneumonia; Translations: [Pneumonia, unspecified organism] 07-05-2021 Episodic Polyhydramnios and other problems of amniotic cavity (9 sources) Chorioamnionitis; Translations: [Chorioamnionitis, unspecified trimester, not applicable or unspecified] 07-05-2021 Episodic Residual codes; unclassified (9 sources) Gestation period, 39 weeks; Translations: [39 weeks gestation of ] 07-14-2021 Episodic Residual codes; unclassified (9 sources) FH: premature coronary heart disease; Translations: [Family history of ischemic heart disease and other diseases of the circulatory system] 10-09-2021 Episodic Residual codes; unclassified (7 sources) Acquired absence of other specified parts of digestive tract; Translations: [Other postprocedural status] Episodic Residual codes; unclassified (2 sources) Family history of ischemic heart disease and other diseases of the circulatory system; Translations: [Family history of ischemic heart disease] Episodic Residual codes; unclassified (8 sources) History of repair of umbilical hernia; Translations: [Other specified postprocedural states] 12-27-2021 Episodic Comment on above: 12/13/21 with mesh Residual codes; unclassified (1 source) Other specified postprocedural states; Translations: [Personal history of surgery to other organs] Episodic Unclassified (9 sources) Delivered by section 07-05-2021 Unclassified (1 source) Insulin resistance, unspecified; Translations: [Insulin resistance, unspecified] Onset: 07-27-2024 Viral infection (1 source) Viral disease; Translations: [Viral infection, unspecified] 09-01-2024 Episodic Past or Other Problems Problem Classification Problem Date Documented Da te Episodic/Chronic Other upper respiratory disease (1 source) Pain in throat Onset: 09-01-2024 Episodic Spondylosis; intervertebral disc disorders; other back problems (8 sources) Low back pain; Translations: [Left low back pain] Onset: 04-22-2007 Resolved: 01-19-2018 04-12-2021 Episodic Sprains and strains (4 sources) Sprain of spinal ligament; Translations: [Sprain of unspecified site of back] Onset: 04-21-2007 Resolved: 01-19-2018 01-19-2018 Episodic Results Test Name Value Interpretation Reference Range Facility Internal Medicine Office Vis jorge 04-13-2025 Internal Medicine Office Visit [facility] Internal Medicine [address] [place], [place] [address] OFFICE VISIT Date of Service: 04/13/25 MR#: [id number] Acct: [id number] Name: ANI DONG MICHELLE Rep #: [id number] : 1990 Provider: Dr. Wes guido MD Age/Sex: 35/F Location: [facility] Status: Signed Intake Vital Signs 01/09/25 09:18 04/13/25 14:39 Height 5 ft 3 in 5 ft 3 in Weight: 283 lb BMI 50.1 BP 130/82 H Blood Pressure Location Lt brachial Position Sitting Respiration 16 Pulse 81 Pulse Source Monitor Temp 98.1 F Temp Source Temporal Pulse Oximetry (%) 97 Oxygen Delivery Method room air Intake Visit Reasons: 3 M FU Chief Complaint: 3 M FU Is patient in pain?: No Allergies No Known Allergies Allergy (Verified 04/13/25 14:37) Medications ???Medication ???Instructions ???Recorded ???Confirmed ???Type pantoprazole 40 mg tablet,delayed 40 mg PO DAILY #90 tabs 04/28/24 04/13/25 Rx release (Protonix) naltrexone 50 mg tablet 25 mg (1/2 x 50 mg) PO BID 3 02/0704/13/25 Rx months #90 tabs bupropion HCl 150 mg tablet,12 hr 150 mg PO BID 3 months #180 ea 04/13/25 Rx sustained-release norethindrone acetate 5 mg tablet 5 mg PO TID 04/13/25 04/13/25 His tory phentermine 37.5 mg tablet 37.5 mg PO QDAY 1 month #30 tabs 1 04/13/25 Rx PFSH Medical History Blood glucose elevated Attention deficit Preventative health care Metabolic syndrome Morbid obesity URI (upper respiratory infection) Hypertension Hyperlipidemia Wears glasses Gastric reflux Non-smoker Family history of early CAD Elevated liver enzymes Umbilical hernia without obstruction and without gangrene Cholesterolosis Chronic cholecystitis Cholelithiasis Polyhydramnios Pneumonia Delivered by section Surgical History S/P LASIK surgery History of umbilical hernia repair History of S/P laparoscopic cholecystectomy S/P tubal ligation Family History Father Arthritis Grandmother Cancer Myocardial infarction Heart disease Mother Myocardial infarction, Onset Age: 47 Heart disease Grandfather Myocardial infarction Heart disease Hypertension High cholesterol Kidney disease Respiratory disease Skin cancer Social History (Updated 04/13/25 @ 14:39 by Mily Akbar) Smoking Status: Never smoker alcohol intake: current alcohol intake frequency: holidays/special occasions only substance use type: does not use what type of physical activity do you participate in: walking frequency: 3-4 times per week seatbelt use: always do you feel safe at home: Yes HPI HPI Chief Complaint: 3 M FU Details: ANI DONG, is a 35-year-old female with a history of obesity, presenting for follow-up on weight management and concerns about heavy menstrual cycles. The patient reports stable weight since her last visit and is currently taking phentermine 37.5 mg half tablet daily and naltrexone 25 mg BID for weight management. She inquires about a potential increase in her phentermine dosage, noting that she has a limited supply remaining. She denies experiencing chest pain, palpitations, or paresthesia. She also denies diarrhea and reports normal urination. She also reports progressively heavier menstrual cycles over the past year, coinciding with the initiation of her current medications. She inquires about a potential correlation between her medications and the increased menstrual flow. She describes her menstrual flow as crazy heavy, requiring up to six pad changes during a workday and causing significant cramping that prevents tampon use. She has discussed this issue with her log manager, who recommended a transvaginal ultrasound. She denies significant fatigue beyond her baseline and is not currently taking iron supplements. Other chronic medical conditions are stable. History of reflux current Protonix. Also history of hypertension and hyperlipidemia. ROS Const Constitutional: No body ache, chills, excessive sweating, fatigue, fever(s), frequent falls, headache(s), snoring, weakness, sleep problems or change in appetite Eyes Eyes: No blurry vision, change in vision, bulging eyes, floaters, visual disturbances or Light sensitivity ENT ENT: No abnormal hearing, ear or mastoid pain, tinnitus, balance problems, nosebleed/epistaxis, nasal congestion, nasal discharge, headache(s), neck pain or sore throat Resp Respiratory: No cough, excessive phlegm production, pain on inspiration, shortness of breath, snoring or wheezing Cardio Cardiology: No chest pain at rest, chest pain with exertion, excessive (more content not included)... Normal [facility] Hemoglobin A1con 01-10-2025 HbA1c (Bld) [Mass fraction] 5.3 % Normal <=5.6 [facility] Comment on above: Result Comment: Norm al < 5.7 % Prediabetic 5.7 - 6.4 % Diabetic >or= 6.5 % Please note range changes. Performed By: #### L 500.4050, L501.9985, L100.0100, L500.4100 #### [facility] [address] [place], [place], [id number] Hemoglobin A1c percentageOrd ered By: Wes Ho on 01-10-2025 HbA1c (Bld) [Mass fraction] 5.3 % <5.7 [facility] Comment on above: Normal < 5.7 % Predi abetic 5.7 - 6.4 % Diabetic >or= 6.5 % Please note range changes. Absolute lymphocyte countOrd ered By: Wes Ho on 01-09-2025 Lymphocytes Auto (Unsp spec) [#/Vol] 2.94 10*3/uL 0.83-4.51 [facility] Absolute neutrophil countOrd ered By: Wes Ho on 01-09-2025 Neutrophils (Bld) [#/Vol] 4.8 10*3/uL 2.0-7.7 [facility] Anion gap in Serum or Plasma Ordered By: Wes Ho on 01-09-2025 Anion gap [Moles/Vol] 13 mmol/L 5-15 [facility] Automated lymphocyte count a s percentage of total leukocytesOrdered By: Wes Ho on 01-09-2025 Lymphocytes/100 WBC Auto (Unsp spec) 34.1 % 19-41 [facility] BUN/creatinine ratioOrdered By: Wes Ho on 01-09-2025 Urea nitrogen/Creatinine [Mass ratio] 12.7 mg/mg 10-20 [facility] Basophil percentageOrdered B y: Wes Ho on 01-09-2025 Basophils/100 WBC (Bld) 0.7 % 0-1 [facility] Bilirubin, totalOrdered By: rai Ho on 01-09-2025 Bilirubin [Mass/Vol] 0.24 mg/dL 0.00-1.30 [facility] CBC W/Diff, Automatedon 12-14 Absolute Lymph 2.94 X10 3/uL Normal 0.83-4.51 [facility] Comment on above: Performed By: #### L 500.4050, L501.9985, L100.0100, L500.4100 #### [facility] [address] [place], [address] Absolute Neut 4.8 X10 3/uL Normal 2.0-7.7 [facility] Comment on above: Performed By: #### L 500.4050, L501.9985, L100.0100, L500.4100 #### [facility] [address] [place], [address] Basophils/100 WBC (Bld) 0.7 % Normal 0-1 [facility] Comment on above: Performed By: #### L 500.4050, L501.9985, L100.0100, L500.4100 #### [facility] [address] [place], [address] Eosinophils/100 WBC (Bld) 2.7 % Normal 0-5 [facility] Comment on above: Performed By: #### L 500.4050, L501.9985, L100.0100, L500.4100 #### [facility] [address] [place], [address] Erythrocyte distribution width (RBC) [Ratio] 13.0 % Normal 11.6-14.6 [facility] Comment on above: Performed By: #### L 500.4050, L501.9985, L100.0100, L500.4100 #### [facility] [address] [place], [address] Hematocrit (Bld) [Volume fraction] 37.2 % Normal 37-47 [facility] Comment on above: Performed By: #### L 500.4050, L501.9985, L100.0100, L500.4100 #### [facility] [address] [place], [address] Hemoglobin (Bld) [Mass/Vol] 12.9 g/dL Normal 12.0-15.0 [facility] Comment on above: Performed By: #### L 500.4050, L501.9985, L100.0100, L500.4100 #### [facility] [address] [place], [address] IG% 0.600 Normal 0.0-0.9 [facility] Comment on above: Result Comment: IG% - Immature Granulocytes (promyelocytes, myelocytes and metamyelocytes) > 1% indicates that a LEFT SHIFT is Present. Performed By: #### L 500.4050, L501.9985, L100.0100, L500.4100 #### [facility] [address] [place], [address] Lymphocytes/100 WBC (Bld) 34.1 % Normal 19-41 [facility] Comment on above: Performed By: #### L 500.4050, L501.9985, L100.0100, L500.4100 #### [facility] [address] [place], [address] MCH (RBC) [Entitic mass] 30.6 pg Normal 27.0-32.0 [facility] Comment on above: Performed By: #### L 500.4050, L501.9985, L100.0100, L500.4100 #### [facility] [address] [place], [address] MCHC (RBC) [Mass/Vol] 34.7 g/dL Normal 32-36 [facility] Comment on above: Performed By: #### L 500.4050, L501.9985, L100.0100, L500.4100 #### [facility] [address] [place], [address] MCV (RBC) [Entitic vol] 88.4 fL Normal 81-99 [facility] Comment on above: Performed By: #### L 500.4050, L501.9985, L100.0100, L500.4100 #### [facility] [address] [place], [address] Monocytes/100 WBC (Bld) 5.7 % Normal 0-10 [facility] Comment on above: Performed By: #### L 500.4050, L501.9985, L100.0100, L500.4100 #### [facility] [address] [place], [address] Neutrophils/100 WBC (Bld) 56.2 % Normal 47-70 [facility] Comment on above: Performed By: #### L 500.4050, L501.9985, L100.0100, L500.4100 #### [facility] [address] [place], [address] Nucleated RBC (Bld) [#/Vol] 0 10*3/uL Normal 0-5 [facility] Comment on above: Performed By: #### L 500.4050, L501.9985, L100.0100, L500.4100 #### [facility] [address] [place], [address] Platelet mean volume (Bld) [Entitic vol] 10.5 fL Normal 6.2-12.0 [facility] Comment on above: Performed By: #### L 500.4050, L501.9985, L100.0100, L500.4100 #### [facility] [address] [place], [address] Platelets (Bld) [#/Vol] 290 10*3/uL Normal 150-450 [facility] Comment on above: Performed By: #### L 500.4050, L501.9985, L100.0100, L500.4100 #### [facility] [address] [place], [address] RBC (Bld) [#/Vol] 4.21 10*6/uL Normal 4.2-5.4 [facility] Comment on above: Performed By: #### L 500.4050, L501.9985, L100.0100, L500.4100 #### [facility] [address] [place], [address] RDW SD 42.2 fl Normal 35.1-43.9 [facility] Comment on above: Performed By: #### L 500.4050, L501.9985, L100.0100, L500.4100 #### [facility] [address] [place], [address] WBC (Bld) [#/Vol] 8.6 10*3/uL Normal 4.4-11.0 [facility] Comment on above: Performed By: #### L 500.4050, L501.9985, L100.0100, L500.4100 #### [facility] [address] [place], [address] Calculated very low density lipoprotein (VLDL) cholesterol measurementOrdered By: Wes Ho on 01-09-2025 Calculated very low density lipoprotein (VLDL) cholesterol measurement 71 mg/dL High 5-40 [facility] Carbon dioxide, total [Moles /volume] in Central venous bloodOrdered By: Wes Ho on 01-09-2025 CO2 [Moles/Vol] 24.4 mmol/L 21.0-32.0 [facility] Chloride assayOrdered By: Kerry Ho on 01-09-2025 Chloride [Moles/Vol] 102 mmol/L 98-108 [facility] Comprehensive Metabolic Prof ilon 01-09-2025 Albumin [Mass/Vol] 4.3 g/dL Normal 3.5-5.0 [facility] Comment on above: Performed By: #### L 500.4050, L501.9985, L100.0100, L500.4100 #### [facility] [address] [place], [address] Albumin/Globulin [Mass ratio] 1.7 {ratio} Normal 0.9-2.4 [facility] Comment on above: Performed By: #### L 500.4050, L501.9985, L100.0100, L500.4100 #### [facility] [address] [place], [address] ALK PHOS 59 U/L Normal 35-104 [facility] Comment on above: Performed By: #### L 500.4050, L501.9985, L100.0100, L500.4100 #### [facility] [address] [place], [address] ALT [Catalytic activity/Vol] 21 U/L Normal <=34 [facility] Comment on above: Performed By: #### L 500.4050, L501.9985, L100.0100, L500.4100 #### [facility] [address] [place], [address] AST [Catalytic activity/Vol] 21 U/L Normal <=31 [facility] Comment on above: Performed By: #### L 500.4050, L501.9985, L100.0100, L500.4100 #### [facility] [address] [place], [address] Bilirubin [Mass/Vol] 0.24 mg/dL Normal 0.00-1.30 [facility] Comment on above: Performed By: #### L 500.4050, L501.9985, L100.0100, L500.4100 #### [facility] [address] [place], [address] BUN/CRE 12.7 RATIO Normal 10-20 [facility] Comment on above: Performed By: #### L 500.4050, L501.9985, L100.0100, L500.4100 #### [facility] [address] [place], [address] Calcium [Mass/Vol] 9.4 mg/dL Normal 7.6-11.0 [facility] Comment on above: Performed By: #### L 500.4050, L501.9985, L100.0100, L500.4100 #### [facility] [address] [place], [address] Chloride [Moles/Vol] 102 mmol/L Normal 98-108 [facility] Comment on above: Performed By: #### L 500.4050, L501.9985, L100.0100, L500.4100 #### [facility] [address] [place], [address] CO2 [Moles/Vol] 24.4 mmol/L Normal 21.0-32.0 [facility] Comment on above: Performed By: #### L 500.4050, L501.9985, L100.0100, L500.4100 #### [facility] [address] [place], [address] Creatinine [Mass/Vol] 0.82 mg/dL Normal 0.70-1.20 [facility] Comment on above: Performed By: #### L 500.4050, L501.9985, L100.0100, L500.4100 #### [facility] [address] [place], [address] GAP 13 Normal 5-15 [facility] Comment on above: Performed By: #### L 500.4050, L501.9985, L100.0100, L500.4100 #### [facility] [address] [place], [address] GFR/1.73 sq M.predicted among non-blacks MDRD (S/P/Bld) [Vol rate/Area] 97 mL/min/{1.73_m2} Normal >60 [facility] Comment on above: Result Comment: mL/m in/1.73m2 CKD-EPI Creatinine Equation (2020) Performed By: #### L 500.4050, L501.9985, L100.0100, L500.4100 #### [facility] [address] [place], [address] Globulin (S) [Mass/Vol] 2.6 g/dL Normal 2.2-4.2 [facility] Comment on above: Performed By: #### L 500.4050, L501.9985, L100.0100, L500.4100 #### [facility] [address] [place], [address] Glucose [Mass/Vol] 110 mg/dL High 70-99 [facility] Comment on above: Performed By: #### L 500.4050, L501.9985, L100.0100, L500.4100 #### [facility] [address] [place], [address] Potassium [Moles/Vol] 4.2 mmol/L Normal 3.3-5.1 [facility] Comment on above: Performed By: #### L 500.4050, L501.9985, L100.0100, L500.4100 #### [facility] [address] [place], [address] Sodium [Moles/Vol] 140 mmol/L Normal 133-145 [facility] Comment on above: Performed By: #### L 500.4050, L501.9985, L100.0100, L500.4100 #### [facility] [address] [place], [address] T PROT 7.0 g/dL Normal 5.9-8.4 [facility] Comment on above: Performed By: #### L 500.4050, L501.9985, L100.0100, L500.4100 #### [facility] [address] [place], [address] Urea nitrogen [Mass/Vol] 10 mg/dL Normal 4-19 [facility] Comment on above: Performed By: #### L 500.4050, L501.9985, L100.0100, L500.4100 #### [facility] [address] [place], [address] Eosinophil percentageOrdered By: Wes Ho on 01-09-2025 Eosinophils/100 WBC (Bld) 2.7 % 0-5 [facility] Erythrocyte distribution wid th ratioOrdered By: Wes Ho on 01-09-2025 Erythrocyte distribution width (RBC) [Ratio] 13.0 % 11.6-14.6 [facility] Erythrocyte distribution wid th standard deviationOrdered By: Wes Ho on 01-09-2025 Erythrocyte distribution width (RBC) [Ratio] 42.2 fl 35.1-43.9 [facility] Glomerular filtration rate ( GFR) estimation/1.73 sq m using serum, plasma, or whole bOrdered By: Wes Ho on 01-09-2025 GFR/1.73 sq M.predicted among non-blacks MDRD (S/P/Bld) [Vol rate/Area] 97 mL/min/{1.73_m2} >60 [facility] Comment on above: mL/min/1.73m2 CKD-EP I Creatinine Equation (2020) Hematocrit Auto (Bld) [Volum e fraction]Ordered By: Wes Ho on 01-09-2025 Hematocrit (Bld) [Volume fraction] 37.2 % 37-47 [facility] Hemoglobin measurementOrdere d By: Wes Ho on 01-09-2025 Hemoglobin (Bld) [Mass/Vol] 12.9 g/dL 12.0-15.0 [facility] Immature granulocytes/100 WB C Auto (Bld)Ordered By: Wes Ho on 01-09-2025 Immature granulocytes/100 WBC (Bld) 0.600 % 0.0-0.9 [facility] Comment on above: IG% - Immature Granu locytes (promyelocytes, myelocytes and metamyelocytes) > 1% indicates that a LEFT SHIFT is Present. Internal Medicine Office Vis itomona 01-09-2025 Internal Medicine Office Visit [facility] [address] [place] [address] OFFICE VISIT Date of Service: 01/09/25 MR#: [id number] Acct: [id number] Name: ANI DONG MICHELLE Rep #: [id number] : 1990 Provider: Dr. Wes guido MD Age/Sex: 34/F Location: [facility] Status: Signed Intake Vital Signs 07/04/24 09:37 01/09/25 09:18 Height 5 ft 3 in 5 ft 3 in Weight: 280 lb BMI 49.6 BP 128/72 H Blood Pressure Location Lt brachial Position Sitting Respiration 18 Pulse 93 Pulse Source Monitor Temp 97.4 F L Temp Source Temporal Pulse Oximetry (%) 98 Oxygen Delivery Method room air Intake Visit Reasons: 6 M FU Chief Complaint: Follow-up chronic condition Is patient in pain?: No Allergies No Known Allergies Allergy (Verified 01/09/25 09:19) Medications ???Medication ???Instructions ???Recorded ???Confirmed ???Type bupropion HCl 150 mg tablet,12 hr 150 mg PO BID 3 months #180 ea 01/09/25 Rx sustained-release naltrexone 50 mg tablet 25 mg (1/2 x 50 mg) PO BID 3 11/1501/09/25 Rx months #90 tabs pantoprazole 40 mg tablet,delayed 40 mg PO DAILY #90 tabs 04/28/24 01/09/25 Rx release (Protonix) phentermine 37.5 mg tablet 18.75 mg (1/2 x 37.5 mg) PO QDAY 0 01/09/25 01/09/25 Rx #30 tabs PFSH Medical History Attention deficit [facility] Metabolic syndrome Morbid obesity URI (upper respiratory infection) Hypertension Hyperlipidemia Wears glasses Gastric reflux Non-smoker Family history of early CAD Elevated liver enzymes Umbilical hernia without obstruction and without gangrene Cholesterolosis Chronic cholecystitis Cholelithiasis Polyhydramnios Pneumonia Delivered by section Surgical History S/P LASIK surgery History of umbilical hernia repair History of S/P laparoscopic cholecystectomy S/P tubal ligation Family History Father Arthritis Grandmother Cancer Myocardial infarction Heart disease Mother Myocardial infarction, Onset Age: 47 Heart disease Grandfather Myocardial infarction Heart disease Hypertension High cholesterol Kidney disease Respiratory disease Skin cancer Social History Smoking Status: Never smoker alcohol intake: current alcohol intake frequency: holidays/special occasions only substance use type: does not use what type of physical activity do you participate in: walking frequency: 3-4 times per week HPI HPI Chief Complaint: Follow-up chronic condition Details: ANI DONG, is a 34-year-old female presenting with weight management concerns and follow-up of chronic conditions. She has been taking phentermine and naltrexone, but inconsistencies in medication adherence have been noted, potentially contributing to weight gain. The patient experienced a gastrointestinal illness, which led to a temporary discontinuation of phentermine. She was also concerned about the association between phentermine and her menstrual irregularities. She however states that her period has been more regular lately though she is taking phentermine consistently. Other chronic medical conditions are stable. Attestation: Documentation on this patient encounter was supported using ambient scribe technology/ voice AI technology. The patient consented to recording for the purpose of documenting the encounter. Provider reviewed content of the generated note prior to signature. ROS Const Constitutional: No body ache, chills, excessive sweating, fatigue, fever(s), frequent falls, headache(s), snoring, weight change, sleep problems, abnormal sleep pattern or change in appetite Eyes Eyes: No blurry vision, change in vision, vision loss, dry eyes, eye pain or Light sensitivity ENT ENT: No abnormal hearing, ear or mastoid pain, tinnitus, dizziness/vertigo, nasal congestion, headache(s), neck pain or sore throat Resp Respiratory: No cough, excessive phlegm production, hemoptysis, shortness of breath, snoring or wheezing Cardio Cardiology: No chest pain at rest, chest pain with exertion, excessive sweating, shortness of breath, dyspnea on exertion, lightheadedness, orthopnea or palpitations Gastro GI: No abdominal pain, change in bowel habits, constipation, cramping, diarrhea, nausea/dyspepsia or vomiting Genitourinary-Female : No burning urination, painful urination, urinary incontinence, urinary frequency, abnormal vaginal bleeding or pelvic pain Musc Musculoskeletal: No abnormal gait, joint pain, back pain, limited range of motion, neck pain, numbness or tingling Skin Ski (more content not included)... Normal [facility] LDL calc ser/plasOrdered By: Wes Ho on 01-09-2025 Cholesterol in LDL [Mass/Vol] 88 mg/dL [facility] Comment on above: Btbazshibk=222-089 m g/dL & Higher Qucx=091 mg/dL or greaterFriedwald Equation for LDL-C Laboratory - Chemistry and C hemistry - challengeOrdered By: Wes Ho on 01-09-2025 AST [Catalytic activity/Vol] 21 U/L <32 [facility] Lipid Profileon 01-09-2025 CHOL:HDL 4.71 Normal [facility] Comment on above: Performed By: #### L 500.4050, L501.9985, L100.0100, L500.4100 #### [facility] [address] [place], [address] Cholesterol [Mass/Vol] 202 mg/dL High <=200 [facility] Comment on above: Result Comment: Chol esterol level, Desirable <200 mg/dL Borderline high cholesterol 200-239 mg/dL High cholesterol >=240 mg/dL Recommendations of the NCEP Adult Treatment Panel for the following risk-cutoff thresholds for the [place] population. Performed By: #### L 500.4050, L501.9985, L100.0100, L500.4100 #### [facility] [address] [place], [address] Cholesterol in HDL [Mass/Vol] 43 mg/dL Normal [facility] Comment on above: Result Comment: Tori onal Cholesterol Education Program (NCEP) guidelines: <40 mg/dL: Low HDL-cholesterol (major risk factor for CHD) >= 60 mg/dL: High HDL-cholesterol (negative risk factor for CHD) HDL-cholesterol is affected by a number of factors, e.g. smoking, exercise, hormones, sex and age. Performed By: #### L 500.4050, L501.9985, L100.0100, L500.4100 #### [facility] [address] [place], [address] Cholesterol in LDL [Mass/Vol] 88 mg/dL Normal [facility] Comment on above: Result Comment: Bord yljsdq=896-756 mg/dL Higher Inho=831 mg/dL or greater Friedwald Equation for LDL-C Performed By: #### L 500.4050, L501.9985, L100.0100, L500.4100 #### [facility] [address] [place], [address] Cholesterol in VLDL [Mass/Vol] 71 mg/dL High 5-40 [facility] Comment on above: Performed By: #### L 500.4050, L501.9985, L100.0100, L500.4100 #### [facility] [address] [place], [address] Triglyceride [Mass/Vol] 357 mg/dL High [facility] Comment on above: Result Comment: The drugs N-Acetylcysteine and Metamizole may falsely depress this assay. Normal range: <150 mg/dL Borderline High: 150-199 mg/dL High: 200-499 mg/dL Very High: >500 mg/dL Performed By: #### L 500.4050, L501.9985, L100.0100, L500.4100 #### [facility] [address] [place], [address] MCV (mean corpuscular volume ) determinationOrdered By: Wes Ho on 01-09-2025 MCV (RBC) [Entitic vol] 88.4 fL 81-99 [facility] Mean corpuscular hemoglobin (MCH) determinationOrdered By: Wes Ho on 01-09-2025 MCH (RBC) [Entitic mass] 30.6 pg 27.0-32.0 [facility] Mean corpuscular hemoglobin concentration (MCHC) determinationOrdered By: Wes Ho on 01-09-2025 MCHC (RBC) [Mass/Vol] 34.7 g/dL 32-36 [facility] Mean platelet volume determi nationOrdered By: Wes Ho on 01-09-2025 Platelet mean volume (Bld) [Entitic vol] 10.5 fL 6.2-12.0 [facility] Monocyte percentageOrdered B y: Wes Ho on 01-09-2025 Monocytes/100 WBC (Bld) 5.7 % 0-10 [facility] Neutrophil percentageOrdered By: Wes Ho on 01-09-2025 Neutrophils/100 WBC (Bld) 56.2 % 47-70 [facility] Nucleated red blood cell per centageOrdered By: rai Ho on 01-09-2025 Nucleated RBC/100 WBC (Bld) [Ratio] 0 % 0-5 [facility] Platelet countOrdered By: Kerry Ho on 01-09-2025 Platelets (Bld) [#/Vol] 290 10*3/uL 150-450 [facility] Potassium measurement (mass/ volume)Ordered By: Wes Ho on 01-09-2025 Potassium (Unsp spec) [Mass/Vol] 4.2 mmol/L 3.3-5.1 [facility] RBC Auto (Bld) [#/Vol]Ordere d By: Wes Ho on 01-09-2025 RBC (Bld) [#/Vol] 4.21 10*6/uL 4.2-5.4 [facility] Screening total cholesterol/ high density lipoprotein (HDL) cholesterol ratioOrdered By: Wes Ho on 01-09-2025 Cholesterol.total/Choles terol in HDL [Mass ratio] 4.71 {ratio} [facility] Serum creatinine measurement (mass/volume)Ordered By: Wes Ho on 01-09-2025 Creatinine [Mass/Vol] 0.82 mg/dL 0.70-1.20 [facility] Serum globulin measurementOr dered By: Wes Ho on 01-09-2025 Globulin (S) [Mass/Vol] 2.6 g/dL 2.2-4.2 [facility] Serum glucose measurement (m ass/volume)Ordered By: Wes Ho on 01-09-2025 Glucose [Mass/Vol] 110 mg/dL High 70-99 [facility] Serum or plasma alanine varghese otransferase (ALT) measurementOrdered By: Wes Ho on 01-09-2025 ALT [Catalytic activity/Vol] 21 U/L <35 [facility] Serum or plasma albumin katiana urement (mass/volume)Ordered By: Wes Ho on 01-09-2025 Albumin [Mass/Vol] 4.3 g/dL 3.5-5.0 [facility] Serum or plasma albumin/glob ulin mass ratioOrdered By: Wes Ho on 01-09-2025 Albumin/Globulin [Mass ratio] 1.7 {ratio} 0.9-2.4 [facility] Serum or plasma alkaline sonia sphatase measurementOrdered By: Wes Ho on 01-09-2025 ALP [Catalytic activity/Vol] 59 U/L 35-104 [facility] Serum or plasma calcium katiana urement (mass/volume)Ordered By: Wes Ho on 01-09-2025 Calcium [Mass/Vol] 9.4 mg/dL 7.6-11.0 [facility] Serum or plasma cholesterol in HDL measurement (mass/volume)Ordered By: Wes Ho on 01-09-2025 Cholesterol in HDL [Mass/Vol] 43 mg/dL >40 [facility] Comment on above: National Cholesterol Education Program (NCEP) guidelines:<40 mg/dL: Low HDL-cholesterol (major risk factor for CHD)>= 60 mg/dL: High HDL-cholesterol (negative risk factor for CHD)HDL-cholesterol is affected by a number of factors, e.g. smoking, exercise, hormones, sex and age. Serum or plasma cholesterol measurement (mass/volume)Ordered By: Wes Ho on 01-09-2025 Cholesterol [Mass/Vol] 202 mg/dL High <201 [facility] Comment on above: Cholesterol level, D esirable <200 mg/dLBorderline high cholesterol 200-239 mg/dLHigh cholesterol >=240 mg/dLRecommendations of the NCEP Adult Treatment Panel for the following risk-cutoff thresholds for the [place] population. Serum or plasma urea nitroge n measurement (mass/volume)Ordered By: Wes Ho on 01-09-2025 Urea nitrogen [Mass/Vol] 10 mg/dL 4-19 [facility] Sodium levelOrdered By: Arlene Ho 01-09-2025 Sodium [Moles/Vol] 140 mmol/L 133-145 [facility] Total proteinOrdered By: Gabe Ho on 01-09-2025 Protein [Mass/Vol] 7.0 g/dL 5.9-8.4 [facility] Triglycerides measurementOrd ered By: Wes Ho 01-09-2025 Triglyceride [Mass/Vol] 357 mg/dL High <199 [facility] Comment on above: The drugs N-Acetylcy steine and Metamizole may falsely depress this assay. Normal range: <150 mg/dLBorderline High: 150-199 mg/dLHigh: 200-499 mg/dLVery High: >500 mg/dL White blood cell (WBC) count Ordered By: Wes Ho on 01-09-2025 WBC (Bld) [#/Vol] 8.6 10*3/uL 4.4-11.0 [facility] CNOVon 10-17-2024 CNOV Office Visit (OBGYWM) ANI DONG Lucy ([id number]) 1990 F Date Time Provider Department 10/17/24 10:45 AM GALILEA JORDAN During your visit today, we recorded the following information about you: Blood pressure Weight Height Last Period 124/76 127 kg 1.575 m 10/11/24 Galilea Jordan APRN.CNM 10/17/2024 1:14 PM Signed Ani is a 34 year old who presents for an annual gynecologic exam without complaints. Still get period: Yes LMP: 10/11/2024 Menses: cycles every 27-30 days and 3-8 days of flow. Has 2 heavy days, uses pads and tampons at the same time. Has to change tampon every hour for large portion of the day. Will have gush of fluid at times. Has been increasing in heaviness in the last year but has increased since of son 3 years ago. Large clots quarter to 50 cent piece at times. Denies any dizziness or feeling lightheaded on her menses. Pain with menses is increased at times. Every menses has increased pain during for the first 3 days. Rates pain 5/10. Will use heating pad and also takes to work. Will take Naproxen and helps some. Is not interested in control. Denies bleeding or spotting between menses. Hgb 12.7 in June Menstrual flow: Heavy Bleeding amount bothersome: Yes Bleeding between periods: No Period symptoms: Cramps - has been getting worse Sexually active: Yes Contraception: Tubal Ligation Contraception frequency: N/A HPV vaccine: No HPV: 10/13/2023 negative Last pap smear: 10/13/2023 normal History of abnormal pap: No Colposcopy: No. Leep: No. Cone biopsy: No. Bothersome pelvic pain: No Last mammogram: never Sexually active: No Pain with intercourse: No Postcoital bleeding: No Mood swings: No , current partner 14 years. 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 No bloating, early satiety, indigestion, or increased flatulence. Bladder: No dysuria, gross hematuria, urinary frequency, urinary urgency, or incontinence. Breast: No breast lumps, nipple d/c, overlying skin changes, redness or skin retraction. Allergies and current medication updated:Yes SENSITIVE EXAM: The sensitive examination was discussed with the Patient or Patient's Authorized Entry Level Management. As applicable, any other physician, advance practice provider, medical student, or other health professional student that will be observing or involved in the sensitive examination for educational or training purposes was discussed with the Patient or Authorized Entry Level Management. The Patient or Authorized Entry Level Management has agreed to proceed with the sensitive examination. (Sensitive examination includes inspection and/or palpation of the breasts, pelvis, prostate and anorectal regions). EXAM: BP 124/76 Ht 5' 2 (1.58m) Wt 280 lb (127.0kg) LMP 10/11/2024 BMI 51.20 kg/(m2). GENERAL: pleasant, female in no apparent distress HEENT: Normocephalic, atraumatic, mucus membranes moist, and no lesions NECK: Supple, full range of motion, no adenopathy, and thyroid normal DERMATOLOGY: Normal, without lesions, non-icteric, and non-hirsute BREAST: soft, non-tender, symmetric, no dominant mass, normal nipple-areolar complex, no lymphadenopathy, and no nipple discharge CHEST: Normal inspiratory effort ABDOMEN: soft, non-tender, and no masses PELVIC: external genitalia normal, normal Bartholin's glands, urethra, [place]'s glands, no vulvar lesions, no cervical lesions, good vaginal support, physiologic discharge present, normal appearing perineal body and perianal region BIMANUAL: uterus normal size, shape and consistency, no adnexal masses, and non-tender RECTOVAGINAL: deferred. NEURO: alert and oriented x3,exam grossly non-focal EXTREMITIES: normal ASSESSMENT/PLAN: 1. Encounter for gynecological examination (general) (routine) with abnormal findings - ICD9: V72.31, ICD10: Z01.411 (primary diagnosis) - Completed pelvic and breast exam - Encouraged monthly BSE - Follow up for annual exam in one year. 2. Abnormal uterine bleeding (AUB) - ICD9: 626.9, ICD10: N93.9 -Reviewed recommendation for US and EMB -Discussed possibility of Mirena IUD, open and will discuss after results 3. Menorrhagia with regular cycle - ICD9: 626.2, (more content not included)... Normal [facility] CNOVon 09-01-2024 CNOV Office Visit (UCWSTR) ANI DONG ([id number]) 1990 F Date Time Provider Department 09/01/24 10:00 AM GALILEA PHELPS WSTR During your visit today, we recorded the following information about you: Temperature Pulse Respiration Blood pressure 98.5 degrees 103/minute 16/minute 116/80 Weight Last Period 124 kg 08/25/24 Galilea Phelps APRN.APOLINAR 09/01/2024 10:38 AM Signed [facility] Subjective Ani Dong is a 34 year old female. Patient presents with: Sore Throat: sore throat, swollen lymph nodes, ear pain, muscle aches, green nasal drainage - Entered by patient 34 year old female with PMH hyperlipidemia, GERD presents for illness Acute onset 3 days ago +sore throat +swollen lymph nodes +ear pain, right +muscle aches +cough Denies CP Denies dyspnea Denies abdominal pain Denies N/V/D Denies skin rash or lesions. Denies tobacco usage +ill contacts The history is provided by the patient. No american sign language teacher was used. URI She complains of cough. There is no chest tightness, difficulty breathing, frequent throat clearing, hemoptysis, hoarse voice, shortness of breath, sputum production or wheezing. This is a new problem. The current episode started in the past 7 days. The problem occurs constantly. The problem has been gradually worsening. Associated symptoms include ear pain, malaise/fatigue, myalgias, nasal congestion, rhinorrhea and a sore throat. Pertinent negatives include no appetite change, chest pain, dyspnea on exertion, ear congestion, fever, headaches, heartburn, orthopnea, PND, postnasal drip, sneezing, sweats, trouble swallowing or weight loss. Her symptoms are aggravated by nothing. Her symptoms are alleviated by nothing. She reports no improvement on treatment. There are no known risk factors for lung disease. There is no history of asthma, bronchiectasis, bronchitis, COPD, emphysema or pneumonia. PAST MEDICAL HISTORY Diagnosis Date Hyperlipidemia 11/07/2011 PAST SURGICAL HISTORY Procedure Laterality Date ESOPHAGOGASTRODUODEN OSCOPY TRANSORAL DIAGNOSTIC 07/12/15 EGD ([facility] [place]) PAST SURGICAL HISTORY OF wisdom teeth UNSPECIFIED ORAL SURGERY PROCEDURE, BY REPORT 2007 Tooth and bone replacement ALLERGIES Patient has no known allergies. MEDICATIONS naltrexone [address] (PROTONIX) 40 mg tablet amoxicillin (AMOXIL) 875 mg tablet Take 1 tablet by mouth two times a day for 7 days. fluconazole (DIFLUCAN) 150 mg tablet Take 1 tablet by mouth once daily for 1 day. bupropion HCl (WELLBUTRIN SR ORAL) Take 150 mg by mouth once daily as needed. predniSONE (DELTASONE) 10 mg tablet Take 4 tabs daily for 3 days, then 2 tabs daily for 3 days, then 1 tab daily for 3 days with food. FAMILY HISTORY Problem Relation Age of Onset Heart Maternal Grandmother Allergies Brother Heart Mother [place], 06/12/2009 age 47 Social History Tobacco Use Smoking status: Never Smokeless tobacco: Never Substance Use Topics Alcohol use: No Drug use: No Review of Systems Constitutional: Positive for malaise/fatigue. Negative for appetite change, fever and weight loss. HENT: Positive for congestion, ear pain, rhinorrhea and sore throat. Negative for hoarse voice, postnasal drip, sneezing and trouble swallowing. Eyes: Negative for photophobia, pain, discharge, redness, itching and visual disturbance. Respiratory: Positive for cough. Negative for hemoptysis, sputum production, shortness of breath and wheezing. Cardiovascular: Negative for chest pain, dyspnea on exertion and PND. Gastrointestinal: Negative for abdominal pain, diarrhea, heartburn, nausea and vomiting. Musculoskeletal: Positive for myalgias. Skin: Negative for color change, pallor, rash and wound. Allergic/Immunologic : Negative for environmental allergies, food allergies and immunocompromised state. Neurological: Negative for dizziness, facial asymmetry and headaches. Hematological: Negative for adenopathy. Does not bruise/bleed easily. Psychiatric/Behavior al: Negative for agitation and behavioral problems. Objective BP 116/80 Pulse 103 Temp 36.9 ?C (98.5 ?F) Resp 16 Wt 124 kg (273 lb 5.9 oz) LMP 08/25/2024 (Exact Date) SpO2 97% BMI 48.43 kg/m? Physical Exam Vitals and nursing note reviewed. Constitutional: General: She is not in acute distress. Appearance: Normal appearance. She is normal weight. She is not ill-appearing, toxic-appearing or diaphoretic. HENT: Head: Normocephalic and atraumatic. Right Ear: Ear canal and external ear normal. Left Ear: Ear canal and external ear normal. Ears: Comments: Right TM erythematous and bulging Nose: Nose normal. No congestion or rhinorrhea. Mouth/Throat: Mouth: Mucous membranes are moist. Pharynx: Posterior oropharyngeal erythema present. No oropharyngeal exudate. Eyes: General: (more content not included)... Normal [facility] STREP A MOLECULAR (POC)on Procedural Control Valid [facility] Strep A (POCT) Negative Negative [facility] CBC W/Diff, Automatedon 06-16 Absolute Lymph 2.38 X10 3/uL Normal 0.83-4.51 [facility] Comment on above: Performed By: #### L 500.4050, L500.4100, L100.0100 #### [facility] [address] [place], [address] Absolute Neut 4.6 X10 3/uL Normal 2.0-7.7 [facility] Comment on above: Performed By: #### L 500.4050, L500.4100, L100.0100 #### [facility] [address] [place], [address] Basophils/100 WBC (Bld) 0.5 % Normal 0-1 [facility] Comment on above: Performed By: #### L 500.4050, L500.4100, L100.0100 #### [facility] [address] [place], [address] Eosinophils/100 WBC (Bld) 2.6 % Normal 0-5 [facility] Comment on above: Performed By: #### L 500.4050, L500.4100, L100.0100 #### [facility] [address] [place], [address] Erythrocyte distribution width (RBC) [Ratio] 12.7 % Normal 11.6-14.6 [facility] Comment on above: Performed By: #### L 500.4050, L500.4100, L100.0100 #### [facility] [address] [place], [address] Hematocrit (Bld) [Volume fraction] 38.8 % Normal 37-47 [facility] Comment on above: Performed By: #### L 500.4050, L500.4100, L100.0100 #### [facility] [address] [place], [address] Hemoglobin (Bld) [Mass/Vol] 12.7 g/dL Normal 12.0-15.0 [facility] Comment on above: Performed By: #### L 500.4050, L500.4100, L100.0100 #### [facility] [address] [place], [address] IG% 0.400 Normal 0.0-0.9 [facility] Comment on above: Result Comment: IG% - Immature Granulocytes (promyelocytes, myelocytes and metamyelocytes) > 1% indicates that a LEFT SHIFT is Present. Performed By: #### L 500.4050, L500.4100, L100.0100 #### [facility] [address] [place], [address] Lymphocytes/100 WBC (Bld) 31.4 % Normal 19-41 [facility] Comment on above: Performed By: #### L 500.4050, L500.4100, L100.0100 #### [facility] [address] [place], [address] MCH (RBC) [Entitic mass] 29.3 pg Normal 27.0-32.0 [facility] Comment on above: Performed By: #### L 500.4050, L500.4100, L100.0100 #### [facility] [address] [place], [address] MCHC (RBC) [Mass/Vol] 32.7 g/dL Normal 32-36 [facility] Comment on above: Performed By: #### L 500.4050, L500.4100, L100.0100 #### [facility] [address] [place], [address] MCV (RBC) [Entitic vol] 89.6 fL Normal 81-99 [facility] Comment on above: Performed By: #### L 500.4050, L500.4100, L100.0100 #### [facility] [address] [place], [address] Monocytes/100 WBC (Bld) 5.1 % Normal 0-10 [facility] Comment on above: Performed By: #### L 500.4050, L500.4100, L100.0100 #### [facility] [address] [place], [address] Neutrophils/100 WBC (Bld) 60.0 % Normal 47-70 [facility] Comment on above: Performed By: #### L 500.4050, L500.4100, L100.0100 #### [facility] [address] [place], [address] Nucleated RBC (Bld) [#/Vol] 0 10*3/uL Normal 0-5 [facility] Comment on above: Performed By: #### L 500.4050, L500.4100, L100.0100 #### [facility] [address] [place], [address] Platelet mean volume (Bld) [Entitic vol] 10.0 fL Normal 6.2-12.0 [facility] Comment on above: Performed By: #### L 500.4050, L500.4100, L100.0100 #### [facility] [address] [place], [address] Platelets (Bld) [#/Vol] 307 10*3/uL Normal 150-450 [facility] Comment on above: Performed By: #### L 500.4050, L500.4100, L100.0100 #### [facility] [address] [place], [address] RBC (Bld) [#/Vol] 4.33 10*6/uL Normal 4.2-5.4 [facility] Comment on above: Performed By: #### L 500.4050, L500.4100, L100.0100 #### [facility] [address] [place], [address] RDW SD 41.2 fl Normal 35.1-43.9 [facility] Comment on above: Performed By: #### L 500.4050, L500.4100, L100.0100 #### [facility] [address] [place], [address] WBC (Bld) [#/Vol] 7.6 10*3/uL Normal 4.4-11.0 [facility] Comment on above: Performed By: #### L 500.4050, L500.4100, L100.0100 #### [facility] [address] [place], [address] Comprehensive Metabolic Prof [facility] 07-04-2024 Albumin [Mass/Vol] 4.0 g/dL Normal 3.2-5.0 [facility] Comment on above: Performed By: #### L 500.4050, L500.4100, L100.0100 #### [facility] [address] [place], [address] Albumin/Globulin [Mass ratio] 1.1 {ratio} Normal 0.9-2.4 [facility] Comment on above: Performed By: #### L 500.4050, L500.4100, L100.0100 #### [facility] [address] [place], [address] ALK P 56 U/L Normal 45-117 [facility] Comment on above: Performed By: #### L 500.4050, L500.4100, L100.0100 #### [facility] [address] [place], [address] ALT [Catalytic activity/Vol] 38 U/L Normal 13-56 [facility] Comment on above: Performed By: #### L 500.4050, L500.4100, L100.0100 #### [facility] [address] [place], [address] AST [Catalytic activity/Vol] 25 U/L Normal 15-37 [facility] Comment on above: Performed By: #### L 500.4050, L500.4100, L100.0100 #### [facility] [address] [place], [address] Bilirubin [Mass/Vol] 0.40 mg/dL Normal 0.20-1.00 [facility] Comment on above: Result Comment: For patients on eltrombopag therapy, use of Dimension [place] TBIL is not recommended. Performed By: #### L 500.4050, L500.4100, L100.0100 #### [facility] [address] [place], [address] BUN/CRE 14.3 RATIO Normal 10-20 [facility] Comment on above: Performed By: #### L 500.4050, L500.4100, L100.0100 #### [facility] [address] [place], [address] CA,Total 9.5 mg/dL Normal 8.5-10.1 [facility] Comment on above: Performed By: #### L 500.4050, L500.4100, L100.0100 #### [facility] [address] [place], [address] Chloride [Moles/Vol] 106 mmol/L Normal 98-107 [facility] Comment on above: Performed By: #### L 500.4050, L500.4100, L100.0100 #### [facility] [address] [place], [address] CO2 [Moles/Vol] 27.0 mmol/L Normal 21.0-32.0 [facility] Comment on above: Performed By: #### L 500.4050, L500.4100, L100.0100 #### [facility] [address] [place], [address] Creatinine [Mass/Vol] 0.91 mg/dL Normal 0.55-1.02 [facility] Comment on above: Result Comment: The validity of the calculated GFR GFRAA in patients over 70 years has not been determined. Clinical correlation is essential. Performed By: #### L 500.4050, L500.4100, L100.0100 #### [facility] [address] [place], [address] EST GFR - AA 92 mL/min Normal >60 [facility] Comment on above: Result Comment: Afri can Iranian GFR Calc Performed By: #### L 500.4050, L500.4100, L100.0100 #### [facility] [address] [place], [address] GAP 7 Normal 5-15 [facility] Comment on above: Performed By: #### L 500.4050, L500.4100, L100.0100 #### [facility] [address] [place], [address] GFR/1.73 sq M.predicted among non-blacks MDRD (S/P/Bld) [Vol rate/Area] 76 mL/min/{1.73_m2} Normal >60 [facility] Comment on above: Result Comment: Non- GFR Calc Performed By: #### L 500.4050, L500.4100, L100.0100 #### [facility] [address] [place], [address] Globulin (S) [Mass/Vol] 3.7 g/dL Normal 2.2-4.2 [facility] Comment on above: Performed By: #### L 500.4050, L500.4100, L100.0100 #### [facility] [address] [place], [address] Glucose [Mass/Vol] 104 mg/dL Normal 74-106 [facility] Comment on above: Result Comment: Fast ing Glucose result from 100 to 125 mg/dL suggests IMPAIRED HOMEOSTASIS per A.D.A. criteria. Performed By: #### L 500.4050, L500.4100, L100.0100 #### [facility] [address] [place], [address] Potassium [Moles/Vol] 3.7 mmol/L Normal 3.5-5.1 [facility] Comment on above: Performed By: #### L 500.4050, L500.4100, L100.0100 #### [facility] [address] [place], [address] Sodium [Moles/Vol] 140 mmol/L Normal 136-145 [facility] Comment on above: Performed By: #### L 500.4050, L500.4100, L100.0100 #### [facility] [address] [place], [address] T PROT 7.7 g/dL Normal 6.4-8.2 [facility] Comment on above: Performed By: #### L 500.4050, L500.4100, L100.0100 #### [facility] [address] [place], [address] Urea nitrogen [Mass/Vol] 13 mg/dL Normal 7-18 [facility] Comment on above: Performed By: #### L 500.4050, L500.4100, L100.0100 #### [facility] [address] [place], [address] Internal Medicine Office Vis jorge 07-04-2024 Internal Medicine Office Visit [facility] [address] [place] [address] [address] [place], [place] [address] OFFICE VISIT Date of Service: 07/04/24 MR#: [id number] Acct: [id number] Name: ANI DONG MICHELLE Rep #: [id number] : 1990 Provider: Dr. Wes guido MD Age/Sex: 34/F Location[facility] Status: Signed Intake Vital Signs 05/04/24 17:00 07/04/24 09:37 Height 5 ft 2 in 5 ft 3 in Weight: 269 lb BMI 47.6 BP 122/78 H Blood Pressure Location Lt brachial Position Sitting Respiration 17 Pulse 90 Pulse Source Monitor Temp 98.0 F Temp Source Temporal Pulse Oximetry (%) 96 Oxygen Delivery Method room air Intake Visit Reasons: 8 WK Chief Complaint: 8 WK Is patient in pain?: No Allergies No Known Allergies Allergy (Verified 07/04/24 09:36) Medications ???Medication ???Instructions ???Recorded ???Confirmed ???Type bupropion HCl 150 mg tablet,12 hr 150 mg PO BID 3 months #180 ea 11/16/23 07/04/24 Rx sustained-release naltrexone 50 mg tablet 25 mg (1/2 x 50 mg) PO BID 3 11/16/23 07/04/24 Rx months #90 tabs pantoprazole 40 mg tablet,delayed 40 mg PO DAILY #90 tabs 04/28/24 07/04/24 Rx release (Protonix) phentermine 37.5 mg tablet 18.75 mg (1/2 x 37.5 mg) PO QDAY 05/04/24 07/04/24 Rx #30 tabs Have you fallen in the past year?: No PFSH Medical History Attention deficit Preventative health care Metabolic syndrome Morbid obesity URI (upper respiratory infection) Hypertension Hyperlipidemia Wears glasses Gastric reflux Non-smoker Family history of early CAD Elevated liver enzymes Umbilical hernia without obstruction and without gangrene Cholesterolosis Chronic cholecystitis Cholelithiasis Polyhydramnios Pneumonia Delivered by section Surgical History S/P LASIK surgery History of umbilical hernia repair History of S/P laparoscopic cholecystectomy S/P tubal ligation Family History Father Arthritis Grandmother Cancer Myocardial infarction Heart disease Mother Myocardial infarction, Onset Age: 47 Heart disease Grandfather Myocardial infarction Heart disease Hypertension High cholesterol Kidney disease Respiratory disease Skin cancer Social History Smoking Status: Never smoker alcohol intake: current alcohol intake frequency: holidays/special occasions only substance use type: does not use what type of physical activity do you participate in: walking frequency: 3-4 times per week HPI HPI Chief Complaint: 8 WK Details: ANI DONG, is a 34 F who presents to the office today for follow-up. No acute concerns at this time. History of metabolic syndrome, BMI of 47.6. Currently on phentermine, down from 276 at her last visit to 269. Tolerating medication well. No palpitations, constipation or concerns reported. Also on naltrexone and Wellbutrin. History of hypertension, blood pressure today is at 122/78 mmHg. Currently not on medication for this. Other chronic medical conditions are stable. ROS Const Constitutional: No body ache, chills, excessive sweating, fatigue, fever(s), frequent falls, headache(s), snoring, weight change, sleep problems, abnormal sleep pattern or change in appetite Eyes Eyes: No blurry vision, change in vision, bulging eyes, floaters, visual disturbances, eye pain or Light sensitivity ENT ENT: No abnormal hearing, ear or mastoid pain, tinnitus, balance problems, nosebleed/epistaxis, nasal congestion, headache(s), neck pain or sore throat Resp Respiratory: No cough, excessive phlegm production, pain on inspiration, shortness of breath, snoring or wheezing Cardio Cardiology: No chest pain at rest, chest pain with exertion, excessive sweating, shortness of breath, dyspnea on exertion, lightheadedness, orthopnea or palpitations Gastro GI: No abdominal pain, change in bowel habits, constipation, cramping, diarrhea, nausea/dyspepsia or vomiting Genitourinary-Female : No burning urination, painful urination, urinary incontinence, urinary frequency, abnormal vaginal bleeding or pelvic pain Musc Musculoskeletal: No abnormal gait, joint pain, back pain, limited range of motion, neck pain, numbness or tingling Skin Skin: No dry skin, redness, excessive hair growth, yellowing of the eye, lesions, itchy eyes, rash or wounds Neuro Neurology: No abnormal gait, abnormal hearing, behavioral changes, unsteady gait/balance, frequent falls, headache(s), memory loss, numbness, tingling or visual disturbances Psych Psychiatric: No abnormal sleep pattern, No anxiety, No behavioral changes, No change in appetite, No irrita (more content not included)... Normal [facility] Lipid Profileon 07-04-2024 Cholesterol [Mass/Vol] 254 mg/dL High 200 [facility] Comment on above: Result Comment: <200 mg/dL Desirable 200-240 mg/dL Borderline >240 mg/dL High Risk Performed By: #### L 500.4050, L500.4100, L100.0100 #### [facility] [address] [place], [address] Cholesterol in HDL [Mass/Vol] 52 mg/dL Normal [facility] Comment on above: Result Comment: The drugs N-Acetylcysteine and Metamizole may falsely depress this assay. Reference Range HDL <40 mg/dL Low HDL Cholesterol HDL >or= 60 mg/dL High HDL Cholesterol Performed By: #### L 500.4050, L500.4100, L100.0100 #### [facility] [address] [place], [address] Cholesterol in LDL [Mass/Vol] 141 mg/dL High 0-130 [facility] Comment on above: Performed By: #### L 500.4050, L500.4100, L100.0100 #### [facility] [address] [place], [address] Cholesterol in VLDL [Mass/Vol] 61 mg/dL High 5-40 [facility] Comment on above: Performed By: #### L 500.4050, L500.4100, L100.0100 #### [facility] [address] [place], [address] Triglyceride [Mass/Vol] 303 mg/dL High [facility] Comment on above: Result Comment: The drugs N-Acetylcysteine and Metamizole may falsely depress this assay. Serum Triglycerides Reference Interval Normal <150 mg/dL Borderline high 150 - 199 mg/dL High 200 - 499 mg/dL Very High > or = 500 mg/dL Performed By: #### L 500.4050, L500.4100, L100.0100 #### [facility] [address] [place], [address] Internal Medicine Office Vis iton 05-04-2024 Internal Medicine Office Visit [facility] [address] [place] [address] [place] [address] OFFICE VISIT Date of Service: 05/04/24 MR#: [id number] Acct: [id number] Name: ANI DONG MICHELLE Rep #: [id number] : 1990 Provider: Dr. Wes guido MD Age/Sex: 34/F Location: [facility] Status: Signed Intake Vital Signs 03/23/24 09:21 05/04/24 17:00 Height 5 ft 2 in 5 ft 2 in Weight: 278 lb 276 lb BMI 50.8 50.5 BP 138/92 H 116/70 Blood Pressure Location Lt brachial Lt brachial Position Sitting Sitting Respiration 17 16 Pulse 81 86 Pulse Source Monitor Monitor Temp 97.7 F L 96.9 F L Temp Source Temporal Temporal Pulse Oximetry (%) 93 98 Oxygen Delivery Method room air room air Intake Visit Reasons: 1 M FU Chief Complaint: 1 M FU Overage Shortage And Damage Clerk Required: No Is patient in pain?: No Allergies No Known Allergies Allergy (Verified 05/04/24 16:41) Medications ???Medication ???Instructions ???Recorded ???Confirmed ???Type bupropion HCl 150 mg tablet,12 hr 150 mg PO BID 3 months #180 ea 11/16/23 05/04/24 Rx sustained-release naltrexone 50 mg tablet 25 mg (1/2 x 50 mg) PO BID 3 11/16/23 05/04/24 Rx months #90 tabs phentermine 37.5 mg tablet 18.75 mg (1/2 x 37.5 mg) PO QDAY 02/19/24 05/04/24 Rx #30 tabs pantoprazole 40 mg tablet,delayed 40 mg PO DAILY #90 tabs 04/28/24 05/04/24 Rx release (Protonix) Nurse's Note: Needing phentermine refilled. [facility] Medical History Attention deficit [facility] Metabolic syndrome Morbid obesity URI (upper respiratory infection) Hypertension Hyperlipidemia Wears glasses Gastric reflux Non-smoker Family history of early CAD Elevated liver enzymes Umbilical hernia without obstruction and without gangrene Cholesterolosis Chronic cholecystitis Cholelithiasis Polyhydramnios Pneumonia Delivered by section Surgical History (Updated 05/04/24 @ 17:00 by Thea Clark MA) S/P LASIK surgery History of umbilical hernia repair History of S/P laparoscopic cholecystectomy S/P tubal ligation Family History Father Arthritis Grandmother Cancer Myocardial infarction Heart disease Mother Myocardial infarction, Onset Age: 47 Heart disease Grandfather Myocardial infarction Heart disease Hypertension High cholesterol Kidney disease Respiratory disease Skin cancer Social History Smoking Status: Never smoker alcohol intake: current alcohol intake frequency: holidays/special occasions only substance use type: does not use what type of physical activity do you participate in: walking frequency: 3-4 times per week HPI HPI Chief Complaint: 1 M FU Details: ANI DONG, is a 34 F who presents to the office today for follow-up. No acute concerns at this time. At her last visit, was started on Adipex for weight loss. Tolerating medication well. Denies palpitation, tightness or shortness of breath. On her home scale, has lost 5 pounds and down 2 pounds here. Other chronic conditions are stable. ROS Const Constitutional: No body ache, chills, excessive sweating, fatigue, fever(s), frequent falls, headache(s), snoring, weakness, sleep problems or change in appetite Eyes Eyes: No blurry vision, change in vision, bulging eyes, floaters, eye pain or Light sensitivity ENT ENT: No abnormal hearing, ear or mastoid pain, tinnitus, balance problems, nosebleed/epistaxis, nasal congestion, headache(s), neck pain or sore throat Resp Respiratory: No cough, excessive phlegm production, pain on inspiration, shortness of breath, snoring or wheezing Cardio Cardiology: No chest pain at rest, chest pain with exertion, excessive sweating, shortness of breath, dyspnea on exertion, lightheadedness, orthopnea or palpitations Gastro GI: No abdominal pain, change in bowel habits, constipation, cramping, diarrhea, nausea/dyspepsia or vomiting Genitourinary-Female : No burning urination, painful urination, urinary incontinence, urinary frequency, abnormal vaginal bleeding or pelvic pain Musc Musculoskeletal: No abnormal gait, joint pain, back pain, limited range of motion, neck pain or numbness Skin Skin: No dry skin, redness, lesions, itchy eyes, rash or wounds Neuro Neurology: No abnormal gait, abnormal hearing, behavioral changes, unsteady gait/balance, weakness, frequent falls, headache(s), memory loss or numbness Psych Psychiatric: No anxiety, No behavioral changes, No change in appetite, No depression, No memory loss and No Thoughts of harming yourself/Others Endo Endocrine: No cold intolerance, excessive sweating, fatigue, flush (more content not included)... Normal [facility] Absolute lymphocyte countOrd ered By: Wes Ho on 05-27-2023 Lymphocytes Auto (Unsp spec) [#/Vol] 2.55 10*3/uL 0.83-4.51 [facility] Basophil percentageOrdered B y: Wes Ho on 05-27-2023 Basophils/100 WBC (Bld) 0.7 % 0-1 [facility] Bilirubin [Mass/Vol] 0.30 mg/dL 0.20-1.00 [facility] Comment on above: For patients on eltr ombopag therapy, use of Dimension [place] TBIL is not recommended. Chloride [Moles/Vol] 108 mmol/L 98-107 [facility] Cholesterol [Mass/Vol] 195 mg/dL <200 [facility] Comment on above: <200 mg/dL Desirable 200-240 mg/dL Borderline >240 mg/dL High Risk Eosinophils/100 WBC (Bld) 2.6 % 0-5 [facility] Glucose [Mass/Vol] 99 mg/dL 74-106 [facility] Neutrophils (Bld) [#/Vol] 4.3 10*3/uL 2.0-7.7 [facility] Neutrophils/100 WBC (Bld) 56.5 % 47-70 [facility] Potassium [Moles/Vol] 3.9 mmol/L 3.5-5.1 [facility] Protein [Mass/Vol] 7.1 g/dL 6.4-8.2 [facility] Sodium [Moles/Vol] 141 mmol/L 136-145 [facility] Triglyceride [Mass/Vol] 333 mg/dL <199 [facility] Comment on above: The drugs N-Acetylcy steine and Metamizole may falsely depress this assay.Serum Triglycerides Reference Interval Normal <150 mg/dL Borderline high 150 - 199 mg/dL High 200 - 499 mg/dL Very High > or = 500 mg/dL WBC (Bld) [#/Vol] 7.6 10*3/uL 4.4-11.0 [facility] Blood erythrocytes count (nu mber/volume)Ordered By: Wes Ho on 05-27-2023 RBC (Bld) [#/Vol] 4.11 10*6/uL 4.2-5.4 [facility] Blood hemoglobin measurement (mass/volume)Ordered By: Wes Ho on 05-27-2023 Hemoglobin (Bld) [Mass/Vol] 12.7 g/dL 12.0-15.0 [facility] Blood lymphocytes/100 leukoc ytesOrdered By: Wes Ho on 05-27-2023 Lymphocytes/100 WBC (Bld) 33.8 % 19-41 [facility] Blood monocytes/100 leukocyt esOrdered By: Wes Ho on 05-27-2023 Monocytes/100 WBC (Bld) 6.0 % 0-10 [facility] Blood platelet mean volumeOr dered By: Wes Ho on 05-27-2023 Platelet mean volume (Bld) [Entitic vol] 10.1 fL 6.2-12.0 [facility] Determination of erythrocyte mean corpuscular volume (MCV)Ordered By: Wes Ho on 05-27-2023 MCV (RBC) [Entitic vol] 89.5 fL 81-99 [facility] Hematocrit Auto (Bld) [Volum e fraction]Ordered By: foziawhitefieldjose Ho on 05-27-2023 Hematocrit (Bld) [Volume fraction] 36.8 % 37-47 [facility] - Chemistry and C hemistry - challengeOrdered By: [facility] Uri[facility]eth[facility] on 05-27-2023 ALP [Catalytic activity/Vol] 50 U/L 45-117 [facility] ALT [Catalytic activity/Vol] 31 U/L 13-56 [facility] CO2 [Moles/Vol] 28.0 mmol/L 21.0-32.0 [facility] Globulin (S) [Mass/Vol] 3.4 g/dL 2.2-4.2 [facility] Urea nitrogen/Creatinine [Mass ratio] 17.4 mg/mg 10-20 [facility] - Hematology and Cell countsOrdered By: foziawhitefieldjose Ho on 05-27-2023 Erythrocyte distribution width (RBC) [Entitic vol] 40.4 fL 35.1-43.9 [facility] Erythrocyte distribution width (RBC) [Ratio] 12.4 % 11.6-14.6 [facility] Immature granulocytes/100 WBC (Bld) 0.400 % 0.0-0.9 [facility] Comment on above: IG% - Immature Granu locytes (promyelocytes, myelocytes and metamyelocytes) > 1% indicates that a LEFT SHIFT is Present. MCH (RBC) [Entitic mass] 30.9 pg 27.0-32.0 [facility] Nucleated RBC/100 WBC (Bld) [Ratio] 0 % 0-5 [facility] MCHC Auto (RBC) [Mass/Vol]Or dered By: Wes Ho on 05-27-2023 MCHC (RBC) [Mass/Vol] 34.5 g/dL 32-36 [facility] No Panel InformationOrdered By: foziawhitefieldjose Ho on 05-27-2023 Estimated GFR (MDRD) Amer 127 mL/min >60 [facility] Comment on above: GFR Calc Estimated GFR (MDRD) Non-Af Amer 105 mL/min >60 [facility] Comment on above: Non- GFR Calc Platelets bldOrdered By: Gabe Ho on 05-27-2023 Platelets (Bld) [#/Vol] 265 10*3/uL 150-450 [facility] Serum or plasma albumin katiana urement (mass/volume)Ordered By: Wes Ho on 05-27-2023 Albumin [Mass/Vol] 3.7 g/dL 3.2-5.0 [facility] Serum or plasma albumin/glob ulin mass ratioOrdered By: Wes Ho on 05-27-2023 Albumin/Globulin [Mass ratio] 1.1 {ratio} 0.9-2.4 [facility] Serum or plasma calcium katiana urement (mass/volume)Ordered By: Wes Ho on 05-27-2023 Calcium [Mass/Vol] 8.7 mg/dL 8.5-10.1 [facility] Serum or plasma cholesterol in HDL measurement (mass/volume)Ordered By: Wes Ho on 05-27-2023 Cholesterol in HDL [Mass/Vol] 40 mg/dL >40 [facility] Comment on above: The drugs N-Acetylcy steine and Metamizole may falsely depress this assay. Reference Range HDL <40 mg/dL Low HDL Cholesterol HDL >or= 60 mg/dL High HDL Cholesterol Serum or plasma cholesterol in VLDL measurement (mass/volume)Ordered By: Wes Ho on 05-27-2023 Cholesterol in VLDL [Mass/Vol] 67 mg/dL 5-40 [facility] Serum or plasma creatinine m easurement (mass/volume)Ordered By: Wes Ho on 05-27-2023 Creatinine [Mass/Vol] 0.69 mg/dL 0.55-1.02 [facility] Comment on above: The validity of the calculated GFR & GFRAA in patients over 70 years has not been determined. Clinical correlation is essential. Serum or plasma low density lipoprotein (LDL) cholesterol measurement (mass/volume)Ordered By: Wes Ho on 05-27-2023 Cholesterol in LDL [Mass/Vol] 88 mg/dL 0-130 [facility] Serum or plasma urea nitroge n measurement (mass/volume)Ordered By: Wes Ho on 05-27-2023 Urea nitrogen [Mass/Vol] 12 mg/dL 7-18 [facility] Thin prep Papanicolaou smear with manual screeningOrdered By: Wes Ho on 05-27-2023 Thin prep Papanicolaou smear with manual screening 20 U/L 15-37 [facility] Thin prep Papanicolaou smear with manual screening 5 5-15 [facility] Basophil percentageOrdered B y: Wes Ho on 12-24-2022 Chloride [Moles/Vol] 109 mmol/L 98-107 [facility] Glucose [Mass/Vol] 118 mg/dL 74-106 [facility] Comment on above: Fasting Glucose resu lt from 100 to 125 mg/dL suggests IMPAIRED HOMEOSTASIS per A.D.A. criteria. Potassium [Moles/Vol] 3.8 mmol/L 3.5-5.1 [facility] Sodium [Moles/Vol] 138 mmol/L 136-145 [facility] - Chemistry and C hemistry - challengeOrdered By: Wes Ho on 12-24-2022 CO2 [Moles/Vol] 24.0 mmol/L 21.0-32.0 [facility] Urea nitrogen/Creatinine [Mass ratio] 13.1 mg/mg 10-20 [facility] No Panel InformationOrdered By: Wes Ho on 12-24-2022 Estimated GFR (MDRD) Amer 101 mL/min >60 [facility] Comment on above: GFR Calc Estimated GFR (MDRD) Non-Af Amer 84 mL/min >60 [facility] Comment on above: Non- GFR Calc Serum or plasma calcium katiana urement (mass/volume)Ordered By: Wes Ho on 12-24-2022 Calcium [Mass/Vol] 8.8 mg/dL 8.5-10.1 [facility] Serum or plasma creatinine m easurement (mass/volume)Ordered By: Wes Ho on 07-12-2023 Creatinine [Mass/Vol] 0.84 mg/dL 0.55-1.02 [facility] Comment on above: The validity of the calculated GFR & GFRAA in patients over 70 years has not been determined. Clinical correlation is essential. Serum or plasma urea nitroge n measurement (mass/volume)Ordered By: Wes Ho on 12-24-2022 Urea nitrogen [Mass/Vol] 11 mg/dL 7-18 [facility] Thin prep Papanicolaou smear with manual screeningOrdered By: Wes Ho on 12-24-2022 Thin prep Papanicolaou smear with manual screening 5 5-15 [facility] Whole blood hemoglobin A1c/t otal hemoglobin ratio (mass fraction)Ordered By: Wes Ho on 12-24-2022 HbA1c (Bld) [Mass fraction] 5.3 % 3.8-5.6 [facility] Comment on above: Normal < 5.7 % Predi abetic 5.7 - 6.4 % Diabetic >or= 6.5 % Please note range changes. Laboratory - Microbiology an d Antimicrobial susceptibilityon 05-29-2022 SARS-CoV-2 (COVID-19) RNA TARSHA+probe Ql (Unsp spec) Not detected Not Detect [facility] Work Phone: Comment on above: Normal Reference Ran ge: Not DetectedMethod:(RT-PCR) real-time reverse transcriptase PCRLuminex JESUS Instrument*The Food and Drug Administration (FDA) has issued an Emergency Use Authorization (EAU) for the JESUS SARS-CoV-2 Assay for the rapid detection of the virus that causes COVID-19. This test has been validated, but the FDAs independent review of this validation is pending.*Negative results do not preclude infection and should not be used as the sole basis for treatment or patient management. Optimum specimen types and timing for peak viral levels during infections caused by SARS-CoV-2 have not been determined. Collection of multiple specimens from the same patient may be necessary to detect the virus. The possibility of a false negative result should be considered if the patient has clinical presentation or has had recent exposure. Absolute lymphocyte counton 04-29-2022 Lymphocytes Auto (Unsp spec) [#/Vol] 2.70 10*3/uL 0.83-4.51 [facility] Work Phone: Basophil percentageon 2021 Basophils/100 WBC (Bld) 0.4 % 0-1 [facility] Work Phone: Bilirubin [Mass/Vol] 0.40 mg/dL 0.20-1.00 [facility] Work Phone: Comment on above: For patients on eltr ombopag therapy, use of Dimension [place] TBIL is not recommended. Chloride [Moles/Vol] 107 mmol/L 98-107 [facility] Work Phone: Cholesterol [Mass/Vol] 187 mg/dL <200 [facility] Work Phone: Comment on above: <200 mg/dL Desirable 200-240 mg/dL Borderline >240 mg/dL High Risk Eosinophils/100 WBC (Bld) 4.4 % 0-5 [facility] Work Phone: Glucose [Mass/Vol] 103 mg/dL 74-106 [facility] Work Phone: Comment on above: Fasting Glucose resu lt from 100 to 125 mg/dL suggests IMPAIRED HOMEOSTASIS per A.D.A. criteria. Neutrophils (Bld) [#/Vol] 5.8 10*3/uL 2.0-7.7 [facility] Work Phone: Neutrophils/100 WBC (Bld) 60.4 % 47-70 [facility] Work Phone: Potassium [Moles/Vol] 4.2 mmol/L 3.5-5.1 [facility] Work Phone: Protein [Mass/Vol] 7.1 g/dL 6.4-8.2 [facility] Work Phone: Sodium [Moles/Vol] 141 mmol/L 136-145 [facility] Work Phone: Triglyceride [Mass/Vol] 225 mg/dL <199 [facility] Work Phone: Comment on above: The drugs N-Acetylcy steine and Metamizole may falsely depress this assay.Serum Triglycerides Reference Interval Normal <150 mg/dL Borderline high 150 - 199 mg/dL High 200 - 499 mg/dL Very High > or = 500 mg/dL WBC (Bld) [#/Vol] 9.7 10*3/uL 4.4-11.0 [facility] Work Phone: Blood erythrocytes count (nu mber/volume)on 04-29-2022 RBC (Bld) [#/Vol] 4.18 10*6/uL 4.2-5.4 [facility] Work Phone: Blood hemoglobin measurement (mass/volume)on 04-29-2022 Hemoglobin (Bld) [Mass/Vol] 12.7 g/dL 12.0-15.0 [facility] Work Phone: Blood lymphocytes/100 leukoc yteson 04-29-2022 Lymphocytes/100 WBC (Bld) 27.9 % 19-41 [facility] Work Phone: Blood monocytes/100 leukocyt eson 04-29-2022 Monocytes/100 WBC (Bld) 6.5 % 0-10 [facility] Work Phone: Blood platelet mean volumeon 04-29-2022 Platelet mean volume (Bld) [Entitic vol] 10.3 fL 6.2-12.0 [facility] Work Phone: Determination of erythrocyte mean corpuscular volume (MCV)on 04-29-2022 MCV (RBC) [Entitic vol] 90.2 fL 81-99 [facility] Work Phone: Hematocrit Auto (Bld) [Volum e fraction]on 04-29-2022 Hematocrit (Bld) [Volume fraction] 37.7 % 37-47 [facility] Work Phone: Laboratory - Chemistry and C hemistry - challengeon 04-29-2022 ALP [Catalytic activity/Vol] 57 U/L 45-117 [facility] Work Phone: ALT [Catalytic activity/Vol] 29 U/L 13-56 [facility] Work Phone: CO2 [Moles/Vol] 27.0 mmol/L 21.0-32.0 [facility] Work Phone: Globulin (S) [Mass/Vol] 3.5 g/dL 2.2-4.2 [facility] Work Phone: Urea nitrogen/Creatinine [Mass ratio] 15.4 mg/mg 10-20 [facility] Work Phone: Laboratory - Hematology and Cell countson 04-29-2022 Erythrocyte distribution width (RBC) [Entitic vol] 41.3 fL 35.1-43.9 [facility] Work Phone: Erythrocyte distribution width (RBC) [Ratio] 12.6 % 11.6-14.6 [facility] Work Phone: Immature granulocytes/100 WBC (Bld) 0.400 % 0.0-0.9 [facility] Work Phone: Comment on above: IG% - Immature Granu locytes (promyelocytes, myelocytes and metamyelocytes) > 1% indicates that a LEFT SHIFT is Present. MCH (RBC) [Entitic mass] 30.4 pg 27.0-32.0 [facility] Work Phone: Nucleated RBC/100 WBC (Bld) [Ratio] 0 % 0-5 [facility] Work Phone: MCHC Auto (RBC) [Mass/Vol]on 04-29-2022 MCHC (RBC) [Mass/Vol] 33.7 g/dL 32-36 [facility] Work Phone: No Panel Informationon 04-29 Estimated GFR (MDRD) Amer 123 mL/min >60 [facility] Work Phone: Comment on above: GFR Calc Estimated GFR (MDRD) Non-Af Amer 101 mL/min >60 [facility] Work Phone: Comment on above: Non- GFR Calc Platelets bldon 04-29-2022 Platelets (Bld) [#/Vol] 275 10*3/uL 150-450 [facility] Work Phone: Serum or plasma albumin katiana urement (mass/volume)on 04-29-2022 Albumin [Mass/Vol] 3.6 g/dL 3.2-5.0 [facility] Work Phone: Serum or plasma albumin/glob ulin mass ratioon 04-29-2022 Albumin/Globulin [Mass ratio] 1.0 {ratio} 0.9-2.4 [facility] Work Phone: Serum or plasma calcium katiana urement (mass/volume)on 04-29-2022 Calcium [Mass/Vol] 9.0 mg/dL 8.5-10.1 [facility] Work Phone: Serum or plasma cholesterol in HDL measurement (mass/volume)on 04-29-2022 Cholesterol in HDL [Mass/Vol] 43 mg/dL >40 [facility] Work Phone: Comment on above: The drugs N-Acetylcy steine and Metamizole may falsely depress this assay. Reference Range HDL <40 mg/dL Low HDL Cholesterol HDL >or= 60 mg/dL High HDL Cholesterol Serum or plasma cholesterol in VLDL measurement (mass/volume)on 04-29-2022 Cholesterol in VLDL [Mass/Vol] 45 mg/dL 5-40 [facility] Work Phone: Serum or plasma creatinine m easurement (mass/volume)on 04-29-2022 Creatinine [Mass/Vol] 0.71 mg/dL 0.55-1.02 [facility] Work Phone: Comment on above: The validity of the calculated GFR & GFRAA in patients over 70 years has not been determined. Clinical correlation is essential. Serum or plasma low density lipoprotein (LDL) cholesterol measurement (mass/volume)on 04-29-2022 Cholesterol in LDL [Mass/Vol] 99 mg/dL 0-130 [facility] Work Phone: Serum or plasma urea nitroge n measurement (mass/volume)on 04-29-2022 Urea nitrogen [Mass/Vol] 11 mg/dL 7-18 [facility] Work Phone: Thin prep Papanicolaou smear with manual screeningon 04-29-2022 Thin prep Papanicolaou smear with manual screening 20 U/L 15-37 [facility] [facility] Work Phone: Thin prep Papanicolaou smear with manual screening 7 5-15 [facility] Work Phone: Basophil percentageon 2021 Bilirubin [Mass/Vol] 0.20 mg/dL 0.20-1.00 [facility] Work Phone: Comment on above: For patients on eltr ombopag therapy, use of Dimension [place] TBIL is not recommended. Chloride [Moles/Vol] 106 mmol/L 98-107 [facility] Work Phone: Glucose [Mass/Vol] 107 mg/dL 74-106 [facility] Work Phone: Comment on above: Fasting Glucose resu lt from 100 to 125 mg/dL suggests IMPAIRED HOMEOSTASIS per A.D.A. criteria. Potassium [Moles/Vol] 3.7 mmol/L 3.5-5.1 [facility] Work Phone: Protein [Mass/Vol] 7.3 g/dL 6.4-8.2 [facility] Work Phone: Sodium [Moles/Vol] 138 mmol/L 136-145 [facility] Work Phone: Cholesterol [Mass/Vol] 233 mg/dL <200 [facility] Work Phone: Comment on above: <200 mg/dL Desirable 200-240 mg/dL Borderline >240 mg/dL High Risk Triglyceride [Mass/Vol] 472 mg/dL <199 [facility] Work Phone: Comment on above: The drugs N-Acetylcy steine and Metamizole may falsely depress this assay. TRIGLYCERIDE IS GREATER THAN 400 mg/dL. LDL RESULT IS INVALID AND WILL NOT BE REPORTED.Serum Triglycerides Reference Interval Normal <150 mg/dL Borderline high 150 - 199 mg/dL High 200 - 499 mg/dL Very High > or = 500 mg/dL Laboratory - Chemistry and C hemistry - challengeon 01-15-2022 ALP [Catalytic activity/Vol] 55 U/L 45-117 [facility] Work Phone: ALT [Catalytic activity/Vol] 43 U/L 13-56 [facility] Work Phone: CO2 [Moles/Vol] 25.0 mmol/L 21.0-32.0 [facility] Work Phone: Globulin (S) [Mass/Vol] 3.5 g/dL 2.2-4.2 [facility] Work Phone: Urea nitrogen/Creatinine [Mass ratio] 17.1 mg/mg 10-20 [facility] Work Phone: No Panel Informationon 01-15 Estimated GFR (MDRD) Amer 105 mL/min >60 [facility] Work Phone: Comment on above: GFR Calc Estimated GFR (MDRD) Non-Af Amer 87 mL/min >60 [facility] Work Phone: Comment on above: Non- GFR Calc Serum or plasma albumin katiana urement (mass/volume)on 01-15-2022 Albumin [Mass/Vol] 3.8 g/dL 3.2-5.0 [facility] Work Phone: Serum or plasma albumin/glob ulin mass ratioon 01-15-2022 Albumin/Globulin [Mass ratio] 1.1 {ratio} 0.9-2.4 [facility] Work Phone: Serum or plasma calcium katiana urement (mass/volume)on 01-15-2022 Calcium [Mass/Vol] 9.0 mg/dL 8.5-10.1 [facility] Work Phone: Serum or plasma cholesterol in HDL measurement (mass/volume)on 01-15-2022 Cholesterol in HDL [Mass/Vol] 38 mg/dL >40 [facility] Work Phone: Comment on above: The drugs N-Acetylcy steine and Metamizole may falsely depress this assay. Reference Range HDL <40 mg/dL Low HDL Cholesterol HDL >or= 60 mg/dL High HDL Cholesterol Serum or plasma cholesterol in VLDL measurement (mass/volume)on 01-15-2022 Cholesterol in VLDL [Mass/Vol] [facility] Work Phone: Comment on above: Test not performed Serum or plasma creatinine m easurement (mass/volume)on 01-15-2022 Creatinine [Mass/Vol] 0.82 mg/dL 0.55-1.02 [facility] Work Phone: Comment on above: The validity of the calculated GFR & GFRAA in patients over 70 years has not been determined. Clinical correlation is essential. Serum or plasma low density lipoprotein (LDL) cholesterol measurement (mass/volume)on 01-15-2022 Cholesterol in LDL [Mass/Vol] [facility] Work Phone: Comment on above: Test not performed Serum or plasma urea nitroge n measurement (mass/volume)on 01-15-2022 Urea nitrogen [Mass/Vol] 14 mg/dL 7-18 [facility] Work Phone: Thin prep Papanicolaou smear with manual screeningon 01-15-2022 Thin prep Papanicolaou smear with manual screening 28 U/L 15-37 [facility] Work Phone: Thin prep Papanicolaou smear with manual screening 7 5-15 [facility] Work Phone: Absolute lymphocyte counton 09-07-2021 Lymphocytes Auto (Unsp spec) [#/Vol] 1.83 10*3/uL 0.83-4.51 [facility] Work Phone: Basophil percentageon 2021 Basophils/100 WBC (Bld) 0.5 % 0-1 [facility] Work Phone: Bilirubin [Mass/Vol] 0.60 mg/dL 0.20-1.00 [facility] Work Phone: Comment on above: For patients on eltr ombopag therapy, use of Dimension [place] TBIL is not recommended. Chloride [Moles/Vol] 107 mmol/L 98-107 [facility] Work Phone: Eosinophils/100 WBC (Bld) 0.5 % 0-5 [facility] Work Phone: Glucose [Mass/Vol] 103 mg/dL 74-106 [facility] Work Phone: Comment on above: Fasting Glucose resu lt from 100 to 125 mg/dL suggests IMPAIRED HOMEOSTASIS per A.D.A. criteria. Neutrophils (Bld) [#/Vol] 6.3 10*3/uL 2.0-7.7 [facility] Work Phone: Neutrophils/100 WBC (Bld) 72.2 % 47-70 [facility] Work Phone: Potassium [Moles/Vol] 4.0 mmol/L 3.5-5.1 [facility] Work Phone: Protein [Mass/Vol] 6.3 g/dL 6.4-8.2 [facility] Work Phone: Sodium [Moles/Vol] 139 mmol/L 136-145 [facility] Work Phone: WBC (Bld) [#/Vol] 8.8 10*3/uL 4.4-11.0 [facility] Work Phone: Blood erythrocytes count (nu mber/volume)on 09-07-2021 RBC (Bld) [#/Vol] 4.00 10*6/uL 4.2-5.4 [facility] Work Phone: Blood hemoglobin measurement (mass/volume)on 09-07-2021 Hemoglobin (Bld) [Mass/Vol] 11.5 g/dL 12.0-15.0 [facility] Work Phone: Blood lymphocytes/100 leukoc yteson 09-07-2021 Lymphocytes/100 WBC (Bld) 20.9 % 19-41 [facility] Work Phone: Blood monocytes/100 leukocyt eson 09-07-2021 Monocytes/100 WBC (Bld) 5.6 % 0-10 [facility] Work Phone: Blood platelet mean volumeon 09-07-2021 Platelet mean volume (Bld) [Entitic vol] 10.3 fL 6.2-12.0 [facility] Work Phone: Determination of erythrocyte mean corpuscular volume (MCV)on 09-07-2021 MCV (RBC) [Entitic vol] 84.3 fL 81-99 [facility] Work Phone: Direct bilirubinon Bilirubin.direct [Mass/Vol] 0.24 mg/dL 0.00-0.30 [facility] Work Phone: Hematocrit Auto (Bld) [Volum e fraction]on 09-07-2021 Hematocrit (Bld) [Volume fraction] 33.7 % 37-47 [facility] Work Phone: Laboratory - Chemistry and C hemistry - challengeon 09-07-2021 ALP [Catalytic activity/Vol] 85 U/L 45-117 [facility] Work Phone: ALT [Catalytic activity/Vol] 157 U/L 13-56 [facility] Work Phone: CO2 [Moles/Vol] 26.0 mmol/L 21.0-32.0 [facility] Work Phone: Globulin (S) [Mass/Vol] 3.0 g/dL 2.2-4.2 [facility] Work Phone: Urea nitrogen/Creatinine [Mass ratio] 20.0 mg/mg 10-20 [facility] Work Phone: Laboratory - Hematology and Cell countson 09-07-2021 Erythrocyte distribution width (RBC) [Entitic vol] 46.3 fL 35.1-43.9 [facility] Work Phone: Erythrocyte distribution width (RBC) [Ratio] 15.0 % 11.6-14.6 [facility] Work Phone: Immature granulocytes/100 WBC (Bld) 0.300 % 0.0-0.9 [facility] Work Phone: Comment on above: IG% - Immature Granu locytes (promyelocytes, myelocytes and metamyelocytes) > 1% indicates that a LEFT SHIFT is Present. MCH (RBC) [Entitic mass] 28.8 pg 27.0-32.0 [facility] Work Phone: Nucleated RBC/100 WBC (Bld) [Ratio] 0 % 0-5 [facility] Work Phone: MCHC Auto (RBC) [Mass/Vol]on 09-07-2021 MCHC (RBC) [Mass/Vol] 34.1 g/dL 32-36 [facility] Work Phone: No Panel Informationon 09-07 Estimated Creatinine Clearance Calc 88.68 ml/min [facility] Work Phone: Estimated GFR (MDRD) Amer 126 mL/min >60 [facility] Work Phone: Comment on above: GFR Calc Estimated GFR (MDRD) Non-Af Amer 104 mL/min >60 [facility] Work Phone: Comment on above: Non- GFR Calc Platelets bldon 09-07-2021 Platelets (Bld) [#/Vol] 237 10*3/uL 150-450 [facility] Work Phone: Serum or plasma albumin katiana urement (mass/volume)on 09-07-2021 Albumin [Mass/Vol] 3.3 g/dL 3.2-5.0 [facility] Work Phone: Serum or plasma calcium katiana urement (mass/volume)on 09-07-2021 Calcium [Mass/Vol] 8.3 mg/dL 8.5-10.1 [facility] Work Phone: Serum or plasma creatinine m easurement (mass/volume)on 09-07-2021 Creatinine [Mass/Vol] 0.70 mg/dL 0.55-1.02 [facility] Work Phone: Comment on above: The validity of the calculated GFR & GFRAA in patients over 70 years has not been determined. Clinical correlation is essential. Serum or plasma urea nitroge n measurement (mass/volume)on 09-07-2021 Urea nitrogen [Mass/Vol] 14 mg/dL 7-18 [facility] Work Phone: Thin prep Papanicolaou smear with manual screeningon 09-07-2021 Thin prep Papanicolaou smear with manual screening 175 U/L 15-37 [facility] Work Phone: Thin prep Papanicolaou smear with manual screening 6 5-15 [facility] Work Phone: Laboratory - Chemistry and C hemistry - challengeon 09-06-2021 Lipase [Catalytic activity/Vol] 161 U/L 73-393 [facility] Work Phone: NOVEL CORONAVIRUS NASOPHARYN GEAL - [facility] SPECIMEN ONLYon 02-28-2020 SARS-COV-2 NOT DETECTED Normal NOT DETECTED [facility] Comment on above: Order Comment: Viral transport media - Collection must be done while wearing N-95 mask, eye protection, gown and gloves. Please label ALL specimens as 2019-nCoV rule out and deliver by hand. This test was performed using real time PCR and has been approved for the qualitative detection of SARS-CoV-2 nucleic acid. The test has been authorized by the FDA under an emergency use authorization for use by authorized laboratories. Result Comment: Nega tive results do not preclude SARS-CoV-2 infection and should not be used as the sole basis for treatment or other patient management decisions. Optimum specimen types and timing for peak viral levels during infections caused by SARS-CoV-2 has not been determined. The possibility of a false negative result should especially be considered if the patient's recent exposures or clinical presentation suggest that SARS-CoV-2 infection is probable, and diagnostic tests for other causes of illness (e.g., other respiratory illness) are negative. Collection of a new specimen and re-testing may be necessary if the patient is critically ill or clinically deteriorating. Performed By: #### L [id number] #### [facility] (DEFAULT) [address] [place] [address] NOVEL CORONAVIRUS (COVID-19) on 12-06-2019 SARS-COV-2 Not Detected Normal Not Detected [employer] Comment on above: Order Comment: This assay was performed by [employer] (TARSHA) on the [employer]??? [place]??? System ([employer] [place], [place]) using Lime Plant Operator Mediated Amplification (TMA) technology. This test was developed, and its performance characteristics determined by [facility]. The Aptima??? SARS-CoV-2 assay is for use only under Emergency Use Authorization (EUA) in the [place] laboratories certified under the Clinical Laboratory Improvement Amendments of 1988 (CLIA), 42 U.S.C. ???263a, to perform high complexity tests. Performed By: #### C [id number] #### [facility] [address] [place], [address] Vital Signs Date Time Vital Sign Value Performing Clinician Facility 01-09-2025 09:18-0400 Body height 160.[address] Wes Ho MD Work Phone: [facility] 01-09-2025 09:18-0400 Body mass index (BMI) [Ratio] 49.6 kg/m2 Dr. Wes Ho MD Work Phone: [facility] 01-09-2025 09:18-0400 Body temperature 97.4 [degF] Dr. Wes Ho MD Work Phone: [facility] 01-09-2025 09:18-0400 Body weight [address] Wes Ho MD Work Phone: [facility] 01-09-2025 09:18-0400 Diastolic blood pressure 72 mm[Hg] Dr. Wes Ho MD Work Phone: [facility] 01-09-2025 09:18-0400 Heart rate 93 /min Dr. Wes Ho MD Work Phone: [facility] 01-09-2025 09:18-0400 Respiratory rate 18 /min Dr. Wes Ho MD Work Phone: [facility] 01-09-2025 09:18-0400 SaO2% (BldA) [Mass fraction] 98 % Dr. Wes Ho MD Work Phone: [facility] 01-09-2025 09:18-0400 Systolic blood pressure 128 mm[Hg] Dr. Wes Ho MD Work Phone: [facility] 10-17-2024 10:53-0400 Body height 157.5 cm Galilea Jordan SENIOR WATER/WASTEWATER ENGINEER.CNM Work Phone: [facility] 10-17-2024 10:53-0400 Body mass index (BMI) [Ratio] 51.21 kg/m2 Galilea Jordan SENIOR WATER/WASTEWATER ENGINEER.CNM Work Phone: [facility] 10-17-2024 10:53-0400 Body weight 127.01 kg Galilea Jordan SENIOR WATER/WASTEWATER ENGINEER.CNM Work Phone: [facility] 10-17-2024 10:53-0400 Diastolic blood pressure 76 mm[Hg] Galilea Jordan SENIOR WATER/WASTEWATER ENGINEER.CNM Work Phone: [facility] 10-17-2024 10:53-0400 Systolic blood pressure 124 mm[Hg] Galilea Jordan SENIOR WATER/WASTEWATER ENGINEER.CNM Work Phone: [facility] 09-01-2024 10:04-0400 Body mass index (BMI) [Ratio] 48.43 kg/m2 Galilea Phelps SENIOR WATER/WASTEWATER ENGINEER.[employer] SALES REPRESENTATIVE Work Phone: [facility] 09-01-2024 10:04-0400 Body temperature 98.49 [degF] Galilea Phelps SENIOR WATER/WASTEWATER ENGINEER.[employer] SALES REPRESENTATIVE Work Phone: [facility] 09-01-2024 10:04-0400 Body weight 124 kg Galilea Phelps SENIOR WATER/WASTEWATER ENGINEER.[employer] SALES REPRESENTATIVE Work Phone: [facility] 09-01-2024 10:04-0400 Diastolic blood pressure 80 mm[Hg] Galilea Phelps SENIOR WATER/WASTEWATER ENGINEER.[employer] SALES REPRESENTATIVE Work Phone: [facility] 09-01-2024 10:04-0400 Heart rate 103 /min Galilea Phelps SENIOR WATER/WASTEWATER ENGINEER.[employer] SALES REPRESENTATIVE Work Phone: [facility] 09-01-2024 10:04-0400 Respiratory rate 16 /min Galilea Phelps SENIOR WATER/WASTEWATER ENGINEER.[employer] SALES REPRESENTATIVE Work Phone: [facility] 09-01-2024 10:04-0400 SaO2% (BldA) [Mass fraction] 97 % Galilea Phelps SENIOR WATER/WASTEWATER ENGINEER.[employer] SALES REPRESENTATIVE Work Phone: [facility] 09-01-2024 10:04-0400 Systolic blood pressure 116 mm[Hg] Galilea Phelps SENIOR WATER/WASTEWATER ENGINEER.[employer] SALES REPRESENTATIVE Work Phone: [facility] 12-24-2023 08:49-0400 Body mass index (BMI) [Ratio] 49.6 kg/m2 Galilea Phelps SENIOR WATER/WASTEWATER ENGINEER.[employer] SALES REPRESENTATIVE Work Phone: [facility] 12-24-2023 08:49-0400 Body temperature 99.39 [degF] Galilea Phelps SENIOR WATER/WASTEWATER ENGINEER.[employer] SALES REPRESENTATIVE Work Phone: [facility] 12-24-2023 08:49-0400 Body weight 127 kg Galilea Phelps SENIOR WATER/WASTEWATER ENGINEER.[employer] SALES REPRESENTATIVE Work Phone: [facility] 12-24-2023 08:49-0400 Diastolic blood pressure 78 mm[Hg] Galilea Phelps SENIOR WATER/WASTEWATER ENGINEER.[employer] SALES REPRESENTATIVE Work Phone: [facility] 12-24-2023 08:49-0400 Heart rate 76 /min Galilea Phelps SENIOR WATER/WASTEWATER ENGINEER.[employer] SALES REPRESENTATIVE Work Phone: [facility] 12-24-2023 08:49-0400 Respiratory rate 16 /min Galilea Phelps SENIOR WATER/WASTEWATER ENGINEER.[employer] SALES REPRESENTATIVE Work Phone: [facility] 12-24-2023 08:49-0400 SaO2% (BldA) [Mass fraction] 98 % Galilea Phelps SENIOR WATER/WASTEWATER ENGINEER.[employer] SALES REPRESENTATIVE Work Phone: [facility] 12-24-2023 08:49-0400 Systolic blood pressure 138 mm[Hg] Galilea Phelps SENIOR WATER/WASTEWATER ENGINEER.[employer] SALES REPRESENTATIVE Work Phone: [facility] 10-13-2023 09:58-0400 Body height 160 cm Galilea Jordan SENIOR WATER/WASTEWATER ENGINEER.CNM Work Phone: [facility] 10-13-2023 09:58-0400 Body mass index (BMI) [Ratio] 49.35 kg/m2 Galilearachel Jordan SENIOR WATER/WASTEWATER ENGINEER.CNM Work Phone: [facility] 10-13-2023 09:58-0400 Body weight 126.37 kg Galilea Julian SENIOR WATER/WASTEWATER ENGINEER.CNM Work Phone: [facility] 10-13-2023 09:58-0400 Diastolic blood pressure 76 mm[Hg] Galilea Jordan SENIOR WATER/WASTEWATER ENGINEER.CNM Work Phone: [facility] 10-13-2023 09:58-0400 Systolic blood pressure 122 mm[Hg] Galilea Julian SENIOR WATER/WASTEWATER ENGINEER.CNM Work Phone: [facility] 05-27-2023 10:51-0500 Body height 154.[address] Wes Ho Work Phone: [facility] 05-27-2023 10:51-0500 Body mass index (BMI) [Ratio] 53.8 kg/m2 Dr. Wes Ho Work Phone: [facility] 05-27-2023 10:51-0500 Body temperature 98.5 [degF] Dr. Wes Ho Work Phone: [facility] 05-27-2023 10:51-0500 Body weight 129.[address] Wes Ho Work Phone: [facility] 05-27-2023 10:51-0500 Diastolic blood pressure 84 mm[Hg] Dr. Wes Ho Work Phone: [facility] 05-27-2023 10:51-0500 Heart rate 78 /min Dr. Wes Ho Work Phone: [facility] 05-27-2023 10:51-0500 Respiratory rate 16 /min Dr. Wes Ho Work Phone: [facility] 05-27-2023 10:51-0500 SaO2% (BldA) [Mass fraction] 97 % Dr. Wes Ho Work Phone: [facility] 05-27-2023 10:51-0500 Systolic blood pressure 120 mm[Hg] Dr. Wes Ho Work Phone: [facility] 12-24-2022 09:52-0400 Body height 154.[address] Wes Ho Work Phone: [facility] 12-24-2022 09:52-0400 Body mass index (BMI) [Ratio] 51.4 kg/m2 Dr. Wes Ho Work Phone: [facility] 12-24-2022 09:52-0400 Body temperature 95.5 [degF] Dr. Wes Ho Work Phone: [facility] 12-24-2022 09:52-0400 Body weight 123.[address] Wes Ho Work Phone: [facility] 12-24-2022 09:52-0400 Diastolic blood pressure 86 mm[Hg] Dr. Wes Ho Work Phone: [facility] 12-24-2022 09:52-0400 Heart rate 86 /min Dr. Wes Ho Work Phone: [facility] 12-24-2022 09:52-0400 Respiratory rate 18 /min Dr. Wes Ho Work Phone: [facility] 12-24-2022 09:52-0400 SaO2% (BldA) [Mass fraction] 98 % Dr. Wes Ho Work Phone: [facility] 12-24-2022 09:52-0400 Systolic blood pressure 128 mm[Hg] Dr. Wes Ho Work Phone: [facility] 10-20-2022 14:59-0400 Body mass index (BMI) [Ratio] 52.3 kg/m2 Dr. Wes Ho Work Phone: [facility] 10-20-2022 14:59-0400 Body temperature 98.5 [degF] Dr. Wes Ho Work Phone: [facility] 10-20-2022 14:59-0400 Body weight 125.[address] Wes Ho Work Phone: [facility] 10-20-2022 14:59-0400 Diastolic blood pressure 80 mm[Hg] Dr. Wes Ho Work Phone: [facility] 10-20-2022 14:59-0400 Heart rate 92 /min Dr. Wes Ho Work Phone: [facility] 10-20-2022 14:59-0400 Respiratory rate 16 /min Dr. Wes Ho Work Phone: [facility] 10-20-2022 14:59-0400 SaO2% (BldA) [Mass fraction] 95 % Dr. Wes Ho Work Phone: [facility] 10-20-2022 14:59-0400 Systolic blood pressure 118 mm[Hg] Dr. Wes Ho Work Phone: [facility] 05-29-2022 09:27-0500 Body height 154.[address] Wes Ho Work Phone: [facility] Work Phone: 05-29-2022 09:27-0500 Body mass index (BMI) [Ratio] 52.3 kg/m2 Dr. Wes Ho Work Phone: [facility] Work Phone: 05-29-2022 09:27-0500 Body temperature 95.7 [degF] Dr. Wes Ho Work Phone: [facility] Work Phone: 05-29-2022 09:27-0500 Body weight 125.[address] Wes Ho Work Phone: [facility] Work Phone: 05-29-2022 09:27-0500 Diastolic blood pressure 86 mm[Hg] Dr. Wes Ho Work Phone: [facility] Work Phone: 05-29-2022 09:27-0500 Heart rate 90 /min Dr. Wes Ho Work Phone: [facility] Work Phone: 05-29-2022 09:27-0500 Respiratory rate 16 /min Dr. Wes Ho Work Phone: [facility] Work Phone: 05-29-2022 09:27-0500 SaO2% (BldA) [Mass fraction] 95 % Dr. Wes Ho Work Phone: [facility] Work Phone: 05-29-2022 09:27-0500 Systolic blood pressure 128 mm[Hg] Dr. Wes Ho Work Phone: [facility] Work Phone: 04-30-2022 09:29-0500 Body temperature 97.5 [degF] No Primary Care Physician [facility] Work Phone: 04-30-2022 09:29-0500 Body weight 125.81 kg No Primary Care Physician [facility] Work Phone: 04-30-2022 09:29-0500 Diastolic blood pressure 82 mm[Hg] No Primary Care Physician [facility] Work Phone: 04-30-2022 09:29-0500 Heart rate 78 /min No Primary Care Physician [facility] Work Phone: 04-30-2022 09:29-0500 Respiratory rate 18 /min No Primary Care Physician [facility] Work Phone: 04-30-2022 09:29-0500 SaO2% (BldA) [Mass fraction] 97 % No Primary Care Physician [facility] Work Phone: 04-30-2022 09:29-0500 Systolic blood pressure 142 mm[Hg] No Primary Care Physician [facility] Work Phone: 01-16-2022 18:19-0400 Body height 156.84 cm No Primary Care Physician [facility] Work Phone: 01-16-2022 18:19-0400 Body mass index (BMI) [Ratio] 50.7 kg/m2 No Primary Care Physician [facility] Work Phone: 01-16-2022 18:19-0400 Body temperature 97.6 [degF] No Primary Care Physician [facility] Work Phone: 01-16-2022 18:19-0400 Body weight 124.73 kg No Primary Care Physician [facility] Work Phone: 01-16-2022 18:19-0400 Diastolic blood pressure 84 mm[Hg] No Primary Care Physician [facility] Work Phone: 01-16-2022 18:19-0400 Heart rate 82 /min No Primary Care Physician [facility] Work Phone: 01-16-2022 18:19-0400 Respiratory rate 14 /min No Primary Care Physician [facility] Work Phone: 01-16-2022 18:19-0400 SaO2% (BldA) [Mass fraction] 99 % No Primary Care Physician [facility] Work Phone: 01-16-2022 18:19-0400 Systolic blood pressure 124 mm[Hg] No Primary Care Physician [facility] Work Phone: 12-13-2021 14:02-0400 Body temperature 97.8 [degF] No Primary Care Physician [facility] Work Phone: 12-13-2021 14:02-0400 Diastolic blood pressure 76 mm[Hg] No Primary Care Physician [facility] Work Phone: 12-13-2021 14:02-0400 Heart rate 84 /min No Primary Care Physician [facility] Work Phone: 12-13-2021 14:02-0400 Respiratory rate 16 /min No Primary Care Physician [facility] Work Phone: 12-13-2021 14:02-0400 SaO2% (BldA) [Mass fraction] 96 % No Primary Care Physician [facility] Work Phone: 12-13-2021 14:02-0400 Systolic blood pressure 124 mm[Hg] No Primary Care Physician [facility] Work Phone: 12-13-2021 11:45-0400 Inhaled oxygen flow rate 2 L/min No Primary Care Physician [facility] Work Phone: 12-13-2021 08:26-0400 Body height 156.84 cm No Primary Care Physician [facility] Work Phone: 12-13-2021 08:26-0400 Body mass index (BMI) [Ratio] 51.2 kg/m2 No Primary Care Physician [facility] Work Phone: 12-13-2021 08:26-0400 Body weight 126 kg No Primary Care Physician [facility] Work Phone: 10-16-2021 09:43-0400 Diastolic blood pressure 80 mm[Hg] No Primary Care Physician [facility] Work Phone: 10-16-2021 09:43-0400 Systolic blood pressure 111 mm[Hg] No Primary Care Physician [facility] Work Phone: 10-16-2021 09:13-0400 Body mass index (BMI) [Ratio] 50.3 kg/m2 No Primary Care Physician [facility] Work Phone: 10-16-2021 09:13-0400 Body temperature 97.4 [degF] No Primary Care Physician [facility] Work Phone: 10-16-2021 09:13-0400 Body weight 123.97 kg No Primary Care Physician [facility] Work Phone: 10-16-2021 09:13-0400 Heart rate 81 /min No Primary Care Physician [facility] Work Phone: 10-16-2021 09:13-0400 Respiratory rate 18 /min No Primary Care Physician [facility] Work Phone: 10-16-2021 09:13-0400 SaO2% (BldA) [Mass fraction] 98 % No Primary Care Physician [facility] Work Phone: 10-09-2021 10:01-0400 Body mass index (BMI) [Ratio] 50.5 kg/m2 No Primary Care Physician [facility] Work Phone: 10-09-2021 10:01-0400 Body temperature 98.4 [degF] No Primary Care Physician [facility] Work Phone: 10-09-2021 10:01-0400 Body weight 124.73 kg No Primary Care Physician [facility] Work Phone: 10-09-2021 10:01-0400 Diastolic blood pressure 78 mm[Hg] No Primary Care Physician [facility] Work Phone: 10-09-2021 10:01-0400 Heart rate 82 /min No Primary Care Physician [facility] Work Phone: 10-09-2021 10:01-0400 Respiratory rate 14 /min No Primary Care Physician [facility] Work Phone: 10-09-2021 10:01-0400 SaO2% (BldA) [Mass fraction] 97 % No Primary Care Physician [facility] Work Phone: 10-09-2021 10:01-0400 Systolic blood pressure 122 mm[Hg] No Primary Care Physician [facility] Work Phone: 09-08-2021 12:59-0400 Body temperature 97.6 [degF] No Primary Care Physician [facility] Work Phone: 09-08-2021 12:59-0400 Diastolic blood pressure 71 mm[Hg] No Primary Care Physician [facility] Work Phone: 09-08-2021 12:59-0400 Heart rate 84 /min No Primary Care Physician [facility] Work Phone: 09-08-2021 12:59-0400 Respiratory rate 18 /min No Primary Care Physician [facility] Work Phone: 09-08-2021 12:59-0400 SaO2% (BldA) [Mass fraction] 94 % No Primary Care Physician [facility] Work Phone: 09-08-2021 12:59-0400 Systolic blood pressure 114 mm[Hg] No Primary Care Physician [facility] Work Phone: 09-08-2021 06:00-0400 Inhaled oxygen flow rate 2 L/min No Primary Care Physician [facility] Work Phone: 09-07-2021 08:16-0400 Body mass index (BMI) [Ratio] 47.8 kg/m2 No Primary Care Physician [facility] Work Phone: 09-07-2021 08:16-0400 Body weight 118 kg No Primary Care Physician [facility] Work Phone: Encounters Encounter Date Encounter Type Care Provider Facility Start: 04-13-2025 End: 04-13-2025 ambulatory Wes Ho Facility:[facility] Start: 03-30-2025 End: 03-30-2025 ambulatory WES HO Facility:[facility] Start: 2025 ambulatory JOSÉ MIGUEL SAUNDERS Facility: [facility] Start: 01-09-2025 End: 01-09-[address] Wes Ho MD -[facility] Work Phone: Start: 01-09-2025 End: 01-09-[address] Wes Ho MD Work Phone: -[facility] Start: 01-09-2025 End: 01-09-2025 ambulatory Wes Ho Facility:[facility] Start: 10-17-2024 End: 10-17-2024 Patient encounter procedure Galilea Jordan APRN.CNCarlos Work Phone: OB/Gynecology Comment on above: Encounter for gyneco logical examination (general) (routine) with abnormal findings (Primary Dx); Abnormal uterine bleeding (AUB); Menorrhagia with regular cycle; Dysmenorrhea Start: 10-17-2024 End: 10-17-2024 Patient encounter status Galilea Jordan APRN.CNM Work Phone: [facility] Start: 10-17-2024 End: 10-17-2024 ambulatory WES HO Facility:[facility] Start: 10-17-2024 Encounter for gynecological examination (general) (routine) with abnormal findings GALILEA JORDAN [facility] Start: 09-01-2024 End: 09-01-2024 ambulatory WES HO Facility:[facility] Start: 09-01-2024 End: 09-01-2024 Patient encounter procedure Galilea Phelps APRN.[employer] SALES REPRESENTATIVE Work Phone: [facility] Comment on above: URI, acute (Primary Dx); Acute otitis media, right; Viral illness Start: 07-04-2024 End: 07-04-2024 [facility] Start: 07-04-2024 End: 07-04-2024 [facility] Start: 05-04-2024 End: 05-04-2024 ambulatory Wes Ho Facility:[facility] Start: 12-24-2023 End: 12-24-2023 Patient encounter procedure Galilea Phelps APRN.[employer] SALES REPRESENTATIVE Work Phone: [facility] Comment on above: Acute otitis media, bilateral (Primary Dx); URI, acute; Plant allergic contact dermatitis Start: 10-13-2023 End: 10-13-2023 Patient encounter procedure Galilea Jordan APRN.CNM Work Phone: OB/Gynecology Comment on above: Encounter for gyneco logical examination (general) (routine) with abnormal findings (Primary Dx); Screening for cervical cancer; Encounter for screening for human papillomavirus (HPV); Class 3 severe obesity without serious comorbidity with body mass index (BMI) of 45.0 to 49.9 in adult, unspecified obesity type (HCC); Acanthosis nigricans Start: 10-13-2023 End: 10-13-2023 Patient encounter status Galilea Jordan APRN.CNM Work Phone: [facility] Start: 05-27-2023 End: 05-27-[address] Wes Ho Work Phone: [facility] Work Phone: Start: 05-27-[address] Thom Ho Work Phone: [facility] Start: 05-27-2023 End: 05-27-2023 Encounter for general adult medical examination without abnormal findings Dr. Wes Ho Work Phone: [facility] Start: 05-27-2023 End: 05-27-[address] Wes Ho Work Phone: [facility] Work Phone: Start: 01-12-2023 End: 01-12-[address] Wes oH Work Phone: [facility] Work Phone: Start: 01-12-2023 End: 01-12-[address] Wes Ho Work Phone: [facility] Work Phone: Start: 12-24-2022 End: 12-24-[address] Wes Ho Work Phone: [facility] Work Phone: Start: 12-24-2022 End: 12-24-[address] Wes Ho Work Phone: [facility] Work Phone: Start: 12-22-[address] Leslye Ho Work Phone: [facility] Work Phone: Start: 10-20-2022 End: 10-20-[address] Wes Ho Work Phone: [facility] Work Phone: Start: 05-29-2022 End: 05-29-[address] Wes Ho Work Phone: [facility] Work Phone: Start: 05-29-2022 End: 05-29-[address] Wes Ho Work Phone: [facility] Start: 04-30-2022 End: 04-30-2022 Patient encounter procedure No Primary Care Physician [facility] Start: 04-29-2022 End: 04-29-2022 ambulatory No Primary Care Physician [facility] Work Phone: Start: 04-29-2022 End: 04-29-2022 Patient encounter procedure No Primary Care Physician [facility] Start: 01-16-2022 End: 01-16-2022 Patient encounter procedure No Primary Care Physician [facility] Start: 01-15-2022 End: 01-15-2022 Patient encounter procedure No Primary Care Physician [facility] Start: 12-27-2021 End: 12-27-2021 Patient encounter procedure No Primary Care Physician [facility] Start: 12-13-2021 Non-patient / Non-visit No Kay jarvis Care Physician [facility] Start: 12-13-2021 End: 12-13-2021 Admission to same day surgery center No [facility] Start: 10-16-2021 End: 10-16-2021 Patient encounter procedure No Primary Care Physician [facility] Start: 10-09-2021 Non-patient / Non-visit No Kay jarvis Care Physician [facility] Start: 10-09-2021 End: 10-09-2021 Patient encounter procedure No Primary Care Physician [facility] Start: 09-23-2021 End: 09-23-2021 Patient encounter procedure No Primary Care Physician [facility] Start: 09-08-2021 Non-patient / Non-visit No Kay jarvis Care Physician [facility] Start: 09-07-2021 Non-patient / Non-visit No Kay jarvis Care Physician [facility] Start: 09-07-2021 Non-patient / Non-visit No Kay jarvis Care Physician [facility] Start: 09-06-2021 End: 09-08-2021 Evaluation and management of inpatient No Primary Care Physician [facility] 3 Start: 12-06-2019 Patient encounter procedure UNKNOWN PROVIDER Facility:[place] Procedures Date Procedure Procedure Detail Performing Clinician Start: 09-01-2024 STREP A MOLECULAR (POC) Galilea Phelps APRN.CNP Work Phone: Start: 12-13-2021 Umbilical hernioplasty No Primary Care Physician Start: 09-07-2021 Cholangiogram No Primar y Care Physician Start: 09-07-2021 Fluoroscopic guidance N o Primary Care Physician Start: 09-06-2021 US scan of gallbladder No Primary Care Physician History of cholecystectomy S/P laparoscopic cholecystectomy No Primary Care Physician Comment on above: 09/07/21 History of laser ass isted in situ keratomileusis S/P LASIK surgery Dr. Wes Ho MD Work Phone: Comment on above: ilateralDr. Crawford Plan of Treatment Date Care Activity Detail Author Start: 10-12-2028 Screening for malign ant neoplasm of cervix Cervical Cancer Screening [facility] Start: 05-27-2027 Urine microalbumin profile DTaP,Tdap,Td Vaccine (8 - Td or Tdap) [facility] Start: 10-17-2025 End: 10-17-2025 Patient encounter procedure 10/17/2025 9:45 AM EDT Routine Office Visit OB/Gynecology [address] [place] [address] Galilea Jordan APRN.CNM [address] [place] [address] OB OB/Gynecology Comment on above: OB Start: 05-22-2025 Screening for malign ant neoplasm of cervix Pap Testing [facility] Start: 01-09-2025 CBC W Auto Different ial panel - Blood [facility] Start: 01-09-2025 Comprehensive metabo lic 2000 panel - Serum or Plasma [facility] Start: 11-01-2024 End: 11-01-2024 Patient encounter procedure 11/01/2024 10:30 AM EDT Office Visit OB/Gynecology [address] [place] [address] Galilea Jordan APRN.CNM [address] [place] [address] EMB OB/Gynecology Comment on above: [facility] Start: 11-01-2024 End: 11-01-2024 ambulatory 11/01/2024 10:00 AM EDT Procedure OB/Gynecology [address] [place] [address] Remote, [employer] [address] [place] [address] : Abnormal uterine bleeding (AUB) [N93.9] OB/Gynecology Comment on above: : Abnormal uterine b leeding (AUB) [N93.9] Start: 10-17-2024 End: 10-17-2025 US Pelvis PELVIC US [facility] Anc Imaging Routine Abnormal uterine bleeding (AUB) Expected: 10/17/2024, Expires: 10/17/2025 [facility] Comment on above: Expected: 10/17/2024 , Expires: 10/17/2025 Start: 10-17-2024 End: 10-17-2024 Patient encounter procedure 10/17/2024 10:45 AM EDT Office Visit OB/Gynecology [address] [place] [address] Galilea Jordan APRN.CNM [address] [place] [address] annual LVM OF R/S FROM 10/13/2024 OB/Gynecology Comment on above: annual LVM OF R/S FR OM 10/13/2024 Start: 10-13-2024 End: 10-13-2024 Patient encounter procedure 10/13/2024 10:45 AM EDT Office Visit OB/Gynecology [address] [place] [address] Galilea Jordan APRN.CNM [address] [place] [address] annual OB/Gynecology Comment on above: annual Start: 02-14-2024 Covid-19 Vaccine ( season) Covid-19 Vaccine ( season) [facility] Start: 02-14-2024 Influenza vaccination [facility] Start: 06-15-2023 Behavioral Health Screening Behavioral Health Screening [facility] Start: 05-27-2023 Patient referral [facility] Work Phone: Start: 02-13-2023 Covid-19 Vaccine ( season) Covid-19 Vaccine ( season) [facility] Start: 12-24-2022 Patient referral [facility] Work Phone: Start: 12-13-2021 Anesthesia hernia re pair upper abdomen nos ANESTH REPAIR OF HERNIA [facility] Work Phone: Start: 12-13-2021 Rpr umbilical hernia age 6 yrs/> incarcerated RPR UMBIL FREDDY BLOCK > 6 YR [facility] Work Phone: Start: 12-13-2021 Patient discharge [facility] Work Phone: Start: 09-08-2021 Oxygen therapy [facility] Work Phone: Start: 09-07-2021 Patient discharge [facility] Work Phone: Start: 09-07-2021 Following clinical pathway protocol [facility] Work Phone: Start: 09-07-2021 Ambulation without limitation [facility] Work Phone: Start: 09-07-2021 Application of intermittent pneumatic compression device [facility] Work Phone: Start: 09-07-2021 Catheterization of vein [facility] Work Phone: Start: 09-07-[address] [facility] Work Phone: Start: 09-07-2021 Measuring intake and output [facility] Work Phone: Start: 09-07-2021 Notification of physician [facility] Work Phone: Start: 09-07-2021 Vital signs measurements [facility] Work Phone: Start: 09-07-2021 [facility] Work Phone: Start: 09-06-2021 Admission procedure [facility] Work Phone: Start: 09-06-2021 Anes intraperitoneal upper abdomen w/laps nos ANESTH SURG UPPER ABDOMEN [facility] Work Phone: Start: 09-06-2021 Laparoscopy surg cholecystectomy LAPAROSCOPIC CHOLECYSTECTOMY [facility] Work Phone: Start: 2021 Screening for malign ant neoplasm of cervix HPV Testing [facility] Start: 2009 Anxiety Screening Anxiety Screening [facility] Start: 2009 Depression Screening Depression Scre ening [facility] Start: 2009 Hepatitis C screening Hepatitis C [facility] Start: 2009 HIV screening HIV Screening [facility] Alanine aminotransfe rase [Enzymatic activity/volume] in Serum or Plasma [facility] Albumin [Mass/volume ] in Serum or Plasma [facility] Alkaline phosphatase [Enzymatic activity/volume] in Serum or Plasma [facility] Anion gap in Serum o r Plasma [facility] Bilirubin, total measurement [facility] BUN/Creatinine ratio [facility] Calcium [Mass/volume ] in Serum or Plasma [facility] Carbon dioxide, tota l [Moles/volume] in Central venous blood [facility] CBC W Auto Different ial panel - Blood [facility] Work Phone: Cholesterol [Mass/vo lume] in Serum or Plasma [facility] Cholesterol in HDL [Mass/volume] in Serum or Plasma [facility] Creatinine [Mass/vol ume] in Serum or Plasma [facility] Endometrial bx w/wo endocervix bx w/o dilat spx ENDOMETRIAL BIOPSY Procedures Routine Abnormal uterine bleeding (AUB) Ordered: 10/17/2024 [facility] Work Phone: Comment on above: Ordered: 10/17/2024 Erythrocyte mean corpuscular volume determination [facility] Glucose [Mass/volume ] in Serum or Plasma [facility] Hematocrit [Volume Fraction] of Blood [facility] Hemoglobin [Mass/vol ume] in Blood [facility] Leukocytes [#/volume ] in Blood [facility] Lipid 1996 panel - S sunitha or Plasma [facility] Work Phone: Low density lipoprot ein cholesterol measurement [facility] Mean corpuscular hemoglobin concentration determination [facility] Mean corpuscular hemoglobin determination [facility] Measurement of renal function [facility] Neutrophil count [facility] Neutrophil percent differential count [facility] PAP TEST PAP TEST Lab [facility] Screening for cervical cancer Encounter for screening for human papillomavirus (HPV) 10/13/2023 10:28 AM EDT [facility] Work Phone: Patient referral [facility] Work Phone: Platelets [#/volume] in Blood [facility] Potassium measurement [facility] Red blood cell count [facility] Red cell distributio n width determination [facility] Serum chloride measurement [facility] Sodium measurement [facility] Total cholesterol:HD L ratio measurement [facility] Total protein measurement [facility] Triglycerides measurement [facility] Urea nitrogen [Mass/volume] in Serum or Plasma [facility] VLDL cholesterol measurement [facility] Immunizations Immunization Date Immunization Notes Care Provider Fa [facility] 04-09-2022 Covid Moderna Bivale nt Booster Dr. Wes Ho MD Work Phone: [facility] 03-28-2022 influenza, injectabl e, quadrivalent, preservative free Dr. Wes Ho MD Work Phone: [facility] 03-28-2022 influenza virus vaccine, unspecified formulation Galilea Jordan APRN.CNM Work Phone: [facility] 03-29-2021 Influenza, high dose seasonal Dr. Wes Ho MD Work Phone: [facility] 03-29-2021 influenza, high dose seasonal, preservative-free No Primary Care Physician [facility] 07-07-2020 Covid (Pfizer) No Primary Ca re Physician [facility] 06-16-2020 Covid (Pfizer) No Primary Ca re Physician [facility] 05-29-2017 hepatitis B vaccine, adult dosage Galilea Julian NATION.CNM Work Phone: [facility] 05-27-2017 tetanus toxoid, redu jet diphtheria toxoid, and acellular pertussis vaccine, adsorbed Galilea Jordan SENIOR WATER/WASTEWATER ENGINEER.CNM Work Phone: [facility] 03-21-2017 influenza, injectabl e, quadrivalent, contains preservative Galilea Julian NATION.CNM Work Phone: [facility] 03-21-2017 influenza, injectabl e, quadrivalent, preservative free Dr. Wes Ho MD Work Phone: [facility] 12-31-2007 tuberculin skin test ; purified protein derivative solution, intradermal Galilea Phelps APRN.[employer] SALES REPRESENTATIVE Work Phone: [facility] Work Phone: 01-15-2006 tetanus toxoid, redu jet diphtheria toxoid, and acellular pertussis vaccine, adsorbed Galilea Jordan SENIOR WATER/WASTEWATER ENGINEER.CNM Work Phone: [facility] Work Phone: 08-12-2004 hepatitis B vaccine, pediatric or pediatric/adolescent dosage Galilea Jordan SENIOR WATER/WASTEWATER ENGINEER.CNM Work Phone: [facility] 02-02-2004 hepatitis B vaccine, pediatric or pediatric/adolescent dosage Galilea Jordan SENIOR WATER/WASTEWATER ENGINEER.CNM Work Phone: [facility] 12-27-2003 hepatitis B vaccine, pediatric or pediatric/adolescent dosage Galilea Jordan SENIOR WATER/WASTEWATER ENGINEER.CNM Work Phone: [facility] 12-27-2003 measles, mumps and rubella virus vaccine Galilea Jordan SENIOR WATER/WASTEWATER ENGINEER.CNM Work Phone: [facility] 05-03-1996 diphtheria, tetanus toxoids and acellular pertussis vaccine Galilea Jordan SENIOR WATER/WASTEWATER ENGINEER.CNM Work Phone: [facility] 05-03-1996 poliovirus vaccine, inactivated Galilea Jordan SENIOR WATER/WASTEWATER ENGINEER.CNM Work Phone: [facility] 02-16-1993 haemophilus influenz ae type b vaccine, HbOC conjugate Galilea Jordan SENIOR WATER/WASTEWATER ENGINEER.CNM Work Phone: [facility] 11-29-1992 diphtheria, tetanus toxoids and acellular pertussis vaccine Galilea Julian SENIOR WATER/WASTEWATER ENGINEER.CNM Work Phone: [facility] 11-29-1992 poliovirus vaccine, inactivated Galilea Jordan SENIOR WATER/WASTEWATER ENGINEER.CNM Work Phone: [facility] 08-16-1992 measles, mumps and rubella virus vaccine Galilea Jordan SENIOR WATER/WASTEWATER ENGINEER.CNM Work Phone: [facility] 1991 DTP-Haemophilus influenzae type b conjugate vaccine Galilea Jordan SENIOR WATER/WASTEWATER ENGINEER.CNM Work Phone: [facility] 1991 DTP-Haemophilus influenzae type b conjugate vaccine Galilea Jordan SENIOR WATER/WASTEWATER ENGINEER.CNM Work Phone: [facility] 1991 poliovirus vaccine, inactivated Galilea Jordan SENIOR WATER/WASTEWATER ENGINEER.CNM Work Phone: [facility] 1991 DTP-Haemophilus influenzae type b conjugate vaccine Galilea Jordan SENIOR WATER/WASTEWATER ENGINEER.CNM Work Phone: [facility] 1991 poliovirus vaccine, inactivated Galilea Jordan SENIOR WATER/WASTEWATER ENGINEER.CNM Work Phone: [facility] Payers Date Payer Category Payer Self-pay [id number] 2021 [employer] BLUE ACCE PPO [id number] 2021 Unknown [id number] 2019 Private Health Insurance MMO SUP ERMED PPO [id number] 2019 Unknown [id number] 2001 Unknown [id number] 1991 Unknown [id number] 1991 Unknown [id number] Self-pay SELF PAY BY [employer] RE[employer] [id number] Unknown [id number] Unknown [id number] Unknown [id number] Unknown [id number] Unknown [id number] Unknown [id number] Unknown [id number] Social History Date Type Detail Facility [facility] Work Phone: Start: 12-04-2021 End: 05-27-2023 Tobacco smoking status NHIS Unknown if ever smoked [facility] Start: 1990 Sex Assigned At Female [facility] Start: 07-29-2023 Tobacco smoking stat us NHIS Never smoked tobacco [facility] Start: 10-13-2023 End: 10-17-2024 Alcohol intake Current non-drinker of alcohol (finding) [facility] Start: 10-13-2023 End: 10-17-2024 History of Social function [facility] Start: 10-13-2023 End: 10-17-2024 Tobacco use panel [facility] Work Phone: National Score (1-100), lower number is lower risk 61 [facility] Start: 1990 Sex Assigned At Not on file [facility] Medical Equipment Procedure Code Equipment Code Equipment Original Text Equipment Identifier Dates Total cholecystectomy with exploration of common bile duct Ligation clip, synthetic polymer, non-bioabsorbable [id number] FDA Start: 09-07-2021 Repair, hernia, umbilical, using mesh MESH,VENTLEX ST ,LG 8CM FDA Start: 12-13-2021 Repair, hernia, umbilical, using mesh MESH,VENTLEX ST ,LG 8CM FDA Start: 12-13-2021 Repair, hernia, umbilical, using mesh MESH,VENTLEX ST ,LG 8CM FDA Start: 12-13-2021 Repair, hernia, umbilical, using mesh MESH,VENTLEX ST ,LG 8CM FDA Start: 12-13-2021 Repair, hernia, umbilical, using mesh MESH,VENTLEX ST ,LG 8CM FDA Start: 12-13-2021 Repair, hernia, umbilical, using mesh MESH,VENTLEX ST ,LG 8CM FDA Start: 12-13-2021 Repair, hernia, umbilical, using mesh MESH,VENTLEX ST ,LG 8CM FDA Start: 12-13-2021 Repair, hernia, umbilical, using mesh MESH,[address] ST ,LG 8CM FDA Start: 12-13-2021 Goals Date Patient Goal Desired Activity /State Functional Status Date Assessment Result Facility 12-13-2021 Functional status Ambulates;Bath room Privilege [facility] Work Phone: 09-08-2021 Functional status Ambulates [facility] Work Phone: 02-21-2014 Are you deaf, or do you have serious difficulty hearing No 02/21/2014 9:19 AM Keyshawn Rogel LPN No [facility] 02-21-2014 Are you blind, or do you have serious difficulty seeing, even when wearing glasses No 02/21/2014 9:19 AM Keyshawn Rogel LPN No [facility] 02-21-2014 Do you have serious difficulty walking or climbing stairs No 02/21/2014 9:19 AM Keyshawn Rogel LPN No [facility] 02-21-2014 Do you have difficul ty dressing or bathing No 02/21/2014 9:19 AM Keyshawn Rogel LPN No [facility] 02-21-2014 Because of a physica l, mental, or emotional condition, do you have difficulty doing errands alone such as visiting a physician's office or shopping No 02/21/2014 9:19 AM Keyshawn Rogel LPN No [facility] Mental Status Date Assessment Result Facility 12-13-2021 Cognitive function Voice/Name;Touch/Shaki ng [facility] Work Phone: 09-08-2021 Cognitive function Level Of Cons ciousness Awake;Alert;Appropriate;Fol lows Commands [facility] Work Phone: 09-08-2021 Cognitive function Voice/Name [facility] Work Phone: 02-21-2014 Because of a physica l, mental, or emotional condition, do you have serious difficulty concentrating, remembering, or making decisions No 02/21/2014 9:19 AM Keyshawn Rogel LPN No [facility] Clinical Notes 12-13-2021 to 03-30-2025 Note Date & Type Note Facility 03-30-2025 Note HNO ID: [id number] Author: GALILEA JORDAN APRN.VELMA Service: ? Author Type: Civil Rights Attorney Type: Progress Notes Filed: 03/30/2025 09:24 Note Text: DISTANCE HEALTH VISIT This Team Access Model visit is a virtual encounter. It required patient-provider interaction for the medical decision making as documented below. I have communicated my name and active licensure. The patient's identity and physical location were verified at the time of this visit. Either the patient or their legal outside sales representative insurance has been informed of the risks and benefits of -- and alternatives to -- treatment through a remote evaluation and consents to proceed with the evaluation remotely. Ani Dong is a 35 year old female seen for request of menstrual suppression. Previously seen on 10/17/24 for an annual and heavy menses. Recommended pelvic US and EMB but patient did not return due to cost. Currently planning to go on a Cruise 04/22 and requesting menstrual suppression. HISTORY REVIEWED (electronic chart updated): - medical history - medications - allergies REVIEW OF SYSTEMS: GENERAL: feeling well without fatigue, no recent change in weight PHYSICAL EXAMINATION: VIDEO EXAM: (if done, performed via video enabled technology) GENERAL: alert and appropriate, in no distress, well-hydrated, well nourished, and happy, smiling, interactive ASSESSMENT: 1. Menstrual suppression - ICD9: 626.8, ICD10: N94.89 -Will start Aygestin 5mg PO TID until return from her trip and then taper to BID for 2 days then daily for 5 days then stop. Reviewed risks, benefits, and alternatives. -Recommend pelvic US and EMB as previously discussed with labs but declines at this time. Galilea Jordan APRN.CNM I spent 20 minutes in the visit, with more than 50% of the total [id number] time of the visit in counseling / coordination of care. [facility] 01-09-2025 Evaluation note Diagnosis Onset Date Resolution Attention deficit chronic January 092024 9:11am Hyperlipidemia chronic January 09, 2025 9:11am Hypertension chronic January 09, 2 025 9:11am Metabolic syndrome chronic December 142024 9:11am Morbid obesity chronic January 09, 2025 9:11am [facility] Work Phone: 1(547) 571-859005-05-2025 NoteHNO ID: [id number] Author: GALILEA JORDAN APRN.CNM Service: ? Author Type: Civil Rights Attorney Type: Progress Notes Filed: 10/17/2024 13:14 Note Text: Ani is a 34 year old who presents for an annual gynecologic exam without complaints. Still get period: Yes LMP: 10/11/2024 Menses: cycles every 27-30 days and 3-8 days of flow. Has 2 heavy days, uses pads and tampons at the same time. Has to change tampon every hour for large portion of the day. Will have gush of fluid at times. Has been increasing in heaviness in the last year but has increased since of son 3 years ago. Large clots quarter to 50 cent piece at times. Denies any dizziness or feeling lightheaded on her menses. Pain with menses is increased at times. Every menses has increased pain during for the first 3 days. Rates pain 5/10. Will use heating pad and also takes to work. Will take Naproxen and helps some. Is not interested in control. Denies bleeding or spotting between menses. Hgb 12.7 in June Menstrual flow: Heavy Bleeding amount bothersome: Yes Bleeding between periods: No Period symptoms: Cramps - has been getting worse Sexually active: Yes Contraception: Tubal Ligation Contraception frequency: N/A HPV vaccine: No HPV: 10/13/2023 negative Last pap smear: 10/13/2023 normal History of abnormal pap: No Colposcopy: No. Leep: No. Cone biopsy: No. Bothersome pelvic pain: No Last mammogram: never Sexually active: No Pain with intercourse: No Postcoital bleeding: No Mood swings: No , current partner 14 years. 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 No bloating, early satiety, indigestion, or increased flatulence. Bladder: No dysuria, gross hematuria, urinary frequency, urinary urgency, or incontinence. Breast: No breast lumps, nipple d/c, overlying skin changes, redness or skin retraction. Allergies and current medication updated:Yes SENSITIVE EXAM: The sensitive examination was discussed with the Patient or Patient's Authorized Entry Level Management. As applicable, any other physician, advance practice provider, medical student, or other health professional student that will be observing or involved in the sensitive examination for educational or training purposes was discussed with the Patient or Authorized Entry Level Management. The Patient or Authorized Entry Level Management has agreed to proceed with the sensitive examination. (Sensitive examination includes inspection and/or palpation of the breasts, pelvis, prostate and anorectal regions). EXAM: BP 124/76 Ht 5' 2 (1.58m) Wt 280 lb (127.0kg) LMP 10/11/2024 BMI 51.20 kg/(m2). GENERAL: pleasant, female in no apparent distress HEENT: Normocephalic, atraumatic, mucus membranes moist, and no lesions NECK: Supple, full range of motion, no adenopathy, and thyroid normal DERMATOLOGY: Normal, without lesions, non-icteric, and non-hirsute BREAST: soft, non-tender, symmetric, no dominant mass, normal nipple-areolar complex, no lymphadenopathy, and no nipple discharge CHEST: Normal inspiratory effort ABDOMEN: soft, non-tender, and no masses PELVIC: external genitalia normal, normal Bartholin's glands, urethra, [place]'s glands, no vulvar lesions, no cervical lesions, good vaginal support, physiologic discharge present, normal appearing perineal body and perianal region BIMANUAL: uterus normal size, shape and consistency, no adnexal masses, and non-tender RECTOVAGINAL: deferred. NEURO: alert and oriented x3,exam grossly non-focal EXTREMITIES: normal ASSESSMENT/PLAN: 1. Encounter for gynecological examination (general) (routine) with abnormal findings - ICD9: V72.31, ICD10: Z01.411 (primary diagnosis) - Completed pelvic and breast exam - Encouraged monthly BSE - Follow up for annual exam in one year. 2. Abnormal uterine bleeding (AUB) - ICD9: 626.9, ICD10: N93.9 -Reviewed recommendation for US and EMB -Discussed possibility of Mirena IUD, open and will discuss after results 3. Menorrhagia with regular cycle - ICD9: 626.2, ICD10: N92.0 -Reviewed recommendation for US and EMB -Discussed possibility of Mirena IUD, open and will discuss after results -Declines bloodwork, will follow up with PCP. 4. Dysmenorrhea - ICD9: 625.3, ICD10: N94.6 -Reviewed recommendation for US and EMB - (more content not included)...[facility]05-05-2025 History of Present illness Narrative* Galilea Jordan APRN.VELMA - 10/17/2024 10:40 AM EDT Ani is a 34 year old who presents for an annual gynecologic exam without complaints. Still get period: Yes LMP: 10/11/2024 Menses: cycles every 27-30 days and 3-8 days of flow. Has 2 heavy days, uses pads and tampons at the same time. Has to change tampon every hour for large portion of the day. Will have gush of fluid at times. Has been increasing in heaviness in the last year but has increased since of son 3 years ago. Large clots quarter to 50 cent piece at times. Denies any dizziness or feeling lightheaded on her menses. Pain with menses is increased at times. Every menses has increased pain during for the first 3 days. Rates pain 5/10. Will use heating pad and also takes to work. Will take Naproxen andhelps some. Is not interested in control. Denies bleeding or spotting between menses. Hgb 12.7 in June Menstrual flow: Heavy Bleeding amount bothersome: Yes Bleeding between periods: No Period symptoms: Cramps - has been getting worse Sexually active: Yes Contraception: Tubal Ligation Contraception frequency: N/A HPV vaccine: No HPV: 10/13/2023 negative Last pap smear: 10/13/2023 normal History of abnormal pap: No Colposcopy: No. Leep: No. Cone biopsy: No. Bothersome pelvic pain: No Last mammogram: never Sexually active: No Pain with intercourse: No Postcoital bleeding: No Mood swings: No , current partner 14 years. 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 No bloating, early satiety, indigestion, or increased flatulence. Bladder: No dysuria, gross hematuria, urinary frequency, urinary urgency, or incontinence. Breast: No breast lumps, nipple d/c, overlying skin changes, redness or skin retraction. Allergies and current medication updated:Yes SENSITIVE EXAM: The sensitive examination was discussed with the Patient or Patient's Authorized Entry Level Management. As applicable, any other physician, advance practice provider, medical student, or other health professional student that will be observing or involved in the sensitive examination for educational or training purposes was discussed with the Patient or Authorized Entry Level Management. The Patient or Authorized Entry Level Management has agreed to proceed with the sensitive examination. (Sensitive examination includes inspection and/or palpation of the breasts, pelvis, prostate and anorectal regions). EXAM: BP 124/76 Ht 5' 2 (1.58m) Wt 280 lb (127.0kg) LMP 10/11/2024 BMI 51.20 kg/(m^2). GENERAL: pleasant, female in no apparent distress HEENT: Normocephalic, atraumatic, mucus membranes moist, and no lesions NECK: Supple, full range of motion, no adenopathy, and thyroid normal DERMATOLOGY: Normal, without lesions, non-icteric, and non-hirsute BREAST: soft, non-tender, symmetric, no dominant mass, normal nipple-areolar complex, no lymphadenopathy, and no nipple discharge CHEST: Normal inspiratory effort ABDOMEN: soft, non-tender, and no masses PELVIC: external genitalia normal, normal Bartholin's glands, urethra, [place]'s glands, no vulvar lesions, no cervical lesions, good vaginal support, physiologic discharge present, normal appearing perineal body and perianal region BIMANUAL: uterus normal size, shape and consistency, no adnexal masses, and non-tender RECTOVAGINAL: deferred. NEURO: alert and oriented x3,exam grossly non-focal EXTREMITIES: normal ASSESSMENT/PLAN: 1. Encounter for gynecological examination (general) (routine) with abnormal findings - ICD9: V72.31, ICD10: Z01.411 (primary diagnosis) - Completed pelvic and breast exam - Encouraged monthly BSE - Follow up for annual exam in one year. 2. Abnormal uterine bleeding (AUB) - ICD9: 626.9, ICD10: N93.9 -Reviewed recommendation for US and EMB -Discussed possibility of Mirena IUD, open and will discuss after results 3. Menorrhagia with regular cycle - ICD9: 626.2, ICD10: N92.0 -Reviewed recommendation for US and EMB -Discussed possibility of Mirena IUD, open and will discuss after results -Declines bloodwork, will follow up with PCP. 4. Dysmenorrhea - ICD9: 625.3, ICD10: N94.6 -Reviewed recommendation for US and EMB -Discussed possibility of Mirena IUD, open and will discuss after results 1) Health maintenance: Pap/HPV up to date. Mammogram starting age 40. Nutrition, exercise and routine health maintenance exams reviewed. Calcium/Vitamin D supplementation information provided. Colon cancer screening: start at age 45 Lipids/glucose: followed by PCP Vitamin D: followed by PCP 2) Contraception: none and tubal sterilization. Contraceptive options reviewed and information provided. 3) STD screening: Declined STD check. 4) Follow up one year or sooner as needed Galilea Jordan APRN.CNM [facility] NoteHNO ID: [id number] Author: GALILEA PHELPS APRN.CNP Service: ? Author Type: Nurse Practitioner Type: Progress Notes Filed: 09/01/2024 10:38 Note Text: [facility] Subjective Ani Dong is a 34 year old female. Patient presents with: Sore Throat: sore throat, swollen lymph nodes, ear pain, muscle aches, green nasal drainage - Entered by patient 34 year old female with PMH hyperlipidemia, GERD presents for illness Acute onset 3 days ago +sore throat +swollen lymph nodes +ear pain, right +muscle aches +cough Denies CP Denies dyspnea Denies abdominal pain Denies N/V/D Denies skin rash or lesions. Denies tobacco usage +ill contacts The history is provided by the patient. No american sign language teacher was used. URI She complains of cough. There is no chest tightness, difficulty breathing, frequent throat clearing, hemoptysis, hoarse voice, shortness of breath, sputum production or wheezing. This is a new problem. The current episode started in the past 7 days. The problem occurs constantly. The problem has been gradually worsening. Associated symptoms include ear pain, malaise/fatigue, myalgias, nasal congestion, rhinorrhea and a sore throat. Pertinent negatives include no appetite change, chest pain, dyspnea on exertion, ear congestion, fever, headaches, heartburn, orthopnea, PND, postnasal drip, sneezing, sweats, trouble swallowing or weight loss. Her symptoms are aggravated by nothing. Her symptoms are alleviated by nothing. She reports no improvement on treatment. There are no known risk factors for lung disease. There is no history of asthma, bronchiectasis, bronchitis, COPD, emphysema or pneumonia. PAST MEDICAL HISTORY Diagnosis Date Hyperlipidemia 11/07/2011 PAST SURGICAL HISTORY Procedure Laterality Date ESOPHAGOGASTRODUODENOSCOPY TRANSORAL DIAGNOSTIC 07/12/15 EGD ([facility] [place]) PAST SURGICAL HISTORY OF wisdom teeth UNSPECIFIED ORAL SURGERY PROCEDURE, BY REPORT 2007 Tooth and bone replacement ALLERGIES Patient has no known allergies. MEDICATIONS naltrexone [address] (PROTONIX) 40 mg tablet amoxicillin (AMOXIL) 875 mg tablet Take 1 tablet by mouth two times a day for 7 days. fluconazole (DIFLUCAN) 150 mg tablet Take 1 tablet by mouth once daily for 1 day. bupropion HCl (WELLBUTRIN SR ORAL) Take 150 mg by mouth once daily as needed. predniSONE (DELTASONE) 10 mg tablet Take 4 tabs daily for 3 days, then 2 tabs daily for 3 days, then 1 tab daily for 3 days with food. FAMILY HISTORY Problem Relation Age of Onset Heart Maternal Grandmother Allergies Brother Heart Mother [place], 06/12/2009 age 47 Social History Tobacco Use Smoking status: Never Smokeless tobacco: Never Substance Use Topics Alcohol use: No Drug use: No Review of Systems Constitutional: Positive for malaise/fatigue. Negative for appetite change, fever and weight loss. HENT: Positive for congestion, ear pain, rhinorrhea and sore throat. Negative for hoarse voice, postnasal drip, sneezing and trouble swallowing. Eyes: Negative for photophobia, pain, discharge, redness, itching and visual disturbance. Respiratory: Positive for cough. Negative for hemoptysis, sputum production, shortness of breath and wheezing. Cardiovascular: Negative for chest pain, dyspnea on exertion and PND. Gastrointestinal: Negative for abdominal pain, diarrhea, heartburn, nausea and vomiting. Musculoskeletal: Positive for myalgias. Skin: Negative for color change, pallor, rash and wound. Allergic/Immunologic: Negative for environmental allergies, food allergies and immunocompromised state. Neurological: Negative for dizziness, facial asymmetry and headaches. Hematological: Negative for adenopathy. Does not bruise/bleed easily. Psychiatric/Behavioral: Negative for agitation and behavioral problems. Objective BP 116/80 Pulse 103 Temp 36.9 ?C (98.5 ?F) Resp 16 Wt 124 kg (273 lb 5.9 oz) LMP 08/25/2024 (Exact Date) SpO2 97% BMI 48.43 kg/m? Physical Exam Vitals and nursing note reviewed. Constitutional: General: She is not in acute distress. Appearance: Normal appearance. She is normal weight. She is not ill-appearing, toxic-appearing or diaphoretic. HENT: Head: Normocephalic and atraumatic. Right Ear: Ear canal and external ear normal. Left Ear: Ear canal and external ear normal. Ears: Comments: Right TM erythematous and bulging Nose: Nose normal. No congestion or rhinorrhea. Mouth/Throat: Mouth: Mucous membranes are moist. Pharynx: Posterior oropharyngeal erythema present. No oropharyngeal exudate. Eyes: General: Right eye: No discharge. Left eye: No discharge. Extraocular Movements: Extraocular movements intact. Conjunctiva/sclera: Conjunctivae normal. Pupils: Pupils are equal, round, and reactive to light. Cardiovascular: Rate and Rhythm: Regular rhythm. Pulses: Normal pulses. Heart sounds: Normal heart s (more content not included)...[facility]03-20-2025 History of Present illness Narrative* Galilea Phelps, RIOS.[facility] - 09/01/2024 10:13 AM EDT [facility] Subjective Ani Dong is a 34 year old female. Patient presents with: Sore Throat: sore throat, swollen lymph nodes, ear pain, muscle aches, green nasal drainage - Entered by patient 34 year old female with PMH hyperlipidemia, GERD presents for illness Acute onset 3 days ago +sore throat +swollen lymph nodes +ear pain, right +muscle aches +cough Denies CP Denies dyspnea Denies abdominal pain Denies N/V/D Denies skin rash or lesions. Denies tobacco usage +ill contacts The history is provided by the patient. No american sign language teacher was used. URI She complains of cough. There is no chest tightness, difficulty breathing, frequent throat clearing, hemoptysis, hoarse voice, shortness of breath, sputum production or wheezing. This is a new problem. The current episode started in the past 7 days. The problem occurs constantly. The problem has been gradually worsening. Associated symptoms include ear pain, malaise/fatigue, myalgias, nasal congestion, rhinorrhea and a sore throat. Pertinent negatives include no appetite change, chest pain, dyspnea on exertion, ear congestion, fever, headaches, heartburn, orthopnea, PND, postnasal drip, sneezing, sweats, trouble swallowing or weight loss. Her symptoms are aggravated by nothing. Her symptoms are alleviated by nothing. She reports no improvement on treatment. There are no known risk factorsfor lung disease. There is no history of asthma, bronchiectasis, bronchitis, COPD, emphysema or pneumonia. PAST MEDICAL HISTORY Diagnosis Date Hyperlipidemia 11/07/2011 PAST SURGICAL HISTORY Procedure Laterality Date ESOPHAGOGASTRODUODENOSCOPY TRANSORAL DIAGNOSTIC 07/12/15 EGD ([facility] [place]) PAST SURGICAL HISTORY OF wisdom teeth UNSPECIFIED ORAL SURGERY PROCEDURE, BY REPORT 2007 Tooth and bone replacement ALLERGIES Patient has no known allergies. MEDICATIONS naltrexone [address] (PROTONIX) 40 mg tablet amoxicillin (AMOXIL) 875 mg tablet Take 1 tablet by mouth two times a day for 7 days. fluconazole (DIFLUCAN) 150 mg tablet Take 1 tablet by mouth once daily for 1 day. bupropion HCl (WELLBUTRIN SR ORAL) Take 150 mg by mouth once daily as needed. predniSONE (DELTASONE) 10 mg tablet Take 4 tabs daily for 3 days, then 2 tabs daily for 3 days, then 1 tab daily for 3 days with food. FAMILY HISTORY Problem Relation Age of Onset Heart Maternal Grandmother Allergies Brother Heart Mother [place], 06/12/2009 age 47 Social History Tobacco Use Smoking status: Never Smokeless tobacco: Never Substance Use Topics Alcohol use: No Drug use: No Review of Systems Constitutional: Positive for malaise/fatigue. Negative for appetite change, fever and weight loss. HENT: Positive for congestion, ear pain, rhinorrhea and sore throat. Negative for hoarse voice, postnasal drip, sneezing and trouble swallowing. Eyes: Negative for photophobia, pain, discharge, redness, itching and visual disturbance. Respiratory: Positive for cough. Negative for hemoptysis, sputum production, shortness of breath and wheezing. Cardiovascular: Negative for chest pain, dyspnea on exertion and PND. Gastrointestinal: Negative for abdominal pain, diarrhea, heartburn, nausea and vomiting. Musculoskeletal: Positive for myalgias. Skin: Negative for color change, pallor, rash and wound. Allergic/Immunologic: Negative for environmental allergies, food allergies and immunocompromised state. Neurological: Negative for dizziness, facial asymmetry and headaches. Hematological: Negative for adenopathy. Does not bruise/bleed easily. Psychiatric/Behavioral: Negative for agitation and behavioral problems. Objective BP 116/80 Pulse 103 Temp 36.9 C (98.5 F) Resp 16 Wt 124 kg (273 lb 5.9 oz) LMP 08/25/2024(Exact Date) SpO2 97% BMI 48.43 kg/m Physical Exam Vitals and nursing note reviewed. Constitutional: General: She is not in acute distress. Appearance: Normal appearance. She is normal weight. She is not ill-appearing, toxic-appearing or diaphoretic. HENT: Head: Normocephalic and atraumatic. Right Ear: Ear canal and external ear normal. Left Ear: Ear canal and external ear normal. Ears: Comments: Right TM erythematous and bulging Nose: Nose normal. No congestion or rhinorrhea. Mouth/Throat: Mouth: Mucous membranes are moist. Pharynx: Posterior oropharyngeal erythema present. No oropharyngeal exudate. Eyes: General: Right eye: No discharge. Left eye: No discharge. Extraocular Movements: Extraocular movements intact. Conjunctiva/sclera: Conjunctivae normal. Pupils: Pupils are equal, round, and reactive to light. Cardiovascular: Rate and Rhythm: Regular rhythm. Pulses: Normal pulses. Heart sounds: Normal heart sounds. No murmur heard. No friction rub. Pulmonary: Effort: Pulmonary effort is normal. No respiratory distress. Breath sounds: Normal breath sounds. No stridor. No wheezing, rhonchi or rales. Chest: Chest wall: No tenderness. Abdominal: General: Abdomen is flat. There is no distension. Palpations: Abdomen is soft. There is no mass. Tenderness: There is no abdominal tenderness. There is no right CVA tenderness, left CVA tenderness, guarding or rebound. Hernia: No hernia is present. Musculoskeletal: General: No swelling, tenderness, deformity or signs of injury. Normal range of motion. Cervical back: Normal range of motion and neck supple. No rigidity. Right lower leg: No edema. Left lower leg: No edema. Lymphadenopathy: Cervical: Cervical adenopathy present. Skin: General: Skin is warm and dry. Capillary Refill: Capillary refill takes less than 2 seconds. Coloration: Skin is not jaundiced or pale. Findings: No bruising, erythema, lesion or rash. Neurological: General: No focal deficit present. Mental Status: She is alert and oriented to person, place, and time. Cranial Nerves: No cranial nerve deficit. Sensory: No sensory deficit. Motor: No weakness. Coordination: Coordination normal. Gait: Gait normal. Psychiatric: Mood and Affect: Mood normal. Behavior: Behavior normal. Thought Content: Thought content normal. Judgment: Judgment normal. {ASSESSMENT/PLAN: 1. URI, acute - ICD9: 465.9, ICD10: J06.9 (primary diagnosis) - Discussed viral etiology and rationale for treatment. - Group A strep molecular testing negative - Symptomatic treatment with prn analgesia - Supportive care with fluids and rest - The patient may also use OTC cough and cold meds as needed, warm salt water gargles, throat lozenges and/or OTC throat spray as needed, and nasal saline gtts and suction prn. - Follow up in 3-5 days if symptoms persist or sooner if worsening of symptoms - STREP A MOLECULAR (POC) 2. Acute otitis media, right - ICD9: 382.9, ICD10: H66.91 - Will begin treatment with as per antibiotic as written, see orders - The patient should also be given OTC cough and cold meds as needed, warm salt water gargles, throat lozenges and/or OTC throat spray as needed, and nasal saline gtts and suction prn for the first 5-7 days of treatment. - Supportive care with plenty of fluids, rest, and analgesia prn. - Follow up in 3-5 days if symptoms persist or worsen. 3. Viral illness - ICD9: 079.99, ICD10: B34.9 - Discussed viral etiology and rationale for treatment. - Symptomatic treatment with prn analgesia - Supportive care with fluids and rest Declines COVID testing Galilea Phelps APRN.CNP History and Record Review External record(s) reviewed: prior inpatient record and prior outpatient record. Differential Diagnoses - URI is more likely for the following reason(s): suggested by H&P - otitis media right is more likely for the following reason(s): suggested by H&P Additional Tests or Interventions The following testing was considered but ultimately not selected after discussion with patient/family: flu swab, declined Disposition The patient was discharged. [facility] History of Present illness Narrative* Galilea Phelps APRN.CNP - 12/24/2023 8:53 AM EDT This note was created using NoteWriter. Subjective Ani Dong is a 33 year old female. 33 year old female with PMH hyperlipidemia, GERD presents for illness. Acute onset one week ago +cough +green phlegm. +sore throat +ear pain, right ear muffled +fever +fatigue States she experienced N/V/D a few days prior Denies CP Denies SOB Poison Ashlyn Acute onset 2 weeks ago Outside weeding Finger, armpit and back States that she continues to weed, and she keeps noting areas erupting. Denies tobacco usage Has used Dayquil, Tylenol The history is provided by the patient. No american sign language teacher was used. Cough This is a new problem. The current episode started more than 1 week ago. The problem occurs constantly. The problem has not changed since onset.The cough is Productive of sputum. Maximum temperature:low grade fever. Associated symptoms include ear congestion, ear pain, rhinorrhea and sore throat. Pertinent negatives include no chest pain, no chills, no sweats, no weight loss, no headaches, no myalgias, no shortness of breath, no wheezing and no eye redness. Treatments tried: see HPI. The treatment provided mild relief. She is not a smoker. Her past medical history does not include bronchitis, pneumonia, bronchiectasis, COPD, emphysema or asthma. PAST MEDICAL HISTORY Diagnosis Date Hyperlipidemia 11/07/2011 PAST SURGICAL HISTORY Procedure Laterality Date ESOPHAGOGASTRODUODENOSCOPY TRANSORAL DIAGNOSTIC 07/12/15 EGD ([facility] [place]) PAST SURGICAL HISTORY OF wisdom teeth UNSPECIFIED ORAL SURGERY PROCEDURE, BY REPORT 2007 Tooth and bone replacement ALLERGIES Patient has no known allergies. MEDICATIONS bupropion HCl (WELLBUTRIN SR ORAL) Take 150 mg by mouth once daily as needed. pantoprazole DR (PROTONIX) 40 mg tablet predniSONE (DELTASONE) 10 mg tablet Take 4 tabs daily for 3 days, then 2 tabs daily for 3 days, then 1 tab daily for 3 days with food. amoxicillin-clavulanate potassium (AUGMENTIN) 875-125 mg per tablet Take 1 tablet by mouth two times a day for 7 days. FAMILY HISTORY Problem Relation Age of Onset Heart Maternal Grandmother Allergies Brother Heart Mother [place], 06/12/2009 age 47 Social History Tobacco Use Smoking status: Never Smokeless tobacco: Never Substance Use Topics Alcohol use: No Drug use: No Review of Systems Constitutional: Negative for chills and weight loss. HENT: Positive for ear pain, rhinorrhea and sore throat. Eyes: Negative for discharge, redness and itching. Respiratory: Positive for cough. Negative for shortness of breath and wheezing. Cardiovascular: Negative for chest pain. Gastrointestinal: Negative for abdominal pain, diarrhea, nausea and vomiting. Endorses prior to onset of URI she had GI sx, but those have since resolved Musculoskeletal: Negative for myalgias. Skin: Positive for rash. Negative for color change. Allergic/Immunologic: Negative for environmental allergies, food allergies and immunocompromised state. Neurological: Negative for headaches. Psychiatric/Behavioral: Negative for agitation and behavioral problems. Objective BP 138/78 Pulse 76 Temp 37.4 C (99.4 F) Resp 16 Wt 127 kg (279 lb 15.8 oz) LMP 10/05/2023(Exact Date) SpO2 98% BMI 49.60 kg/m Physical Exam Vitals and nursing note reviewed. Constitutional: General: She is not in acute distress. Appearance: Normal appearance. She is obese. She is not ill-appearing, toxic- appearing or diaphoretic. HENT: Head: Normocephalic and atraumatic. Right Ear: Ear canal and external ear normal. Left Ear: Ear canal and external ear normal. Ears: Comments: B/L TM erythematous and bulging. Right > Left Nose: Nose normal. No congestion or rhinorrhea. Comments: +boggy nasal turbinates Mouth/Throat: Mouth: Mucous membranes are moist. Pharynx: Posterior oropharyngeal erythema present. No oropharyngeal exudate. Comments: +post nasal drainage Eyes: General: Right eye: No discharge. Left eye: No discharge. Extraocular Movements: Extraocular movements intact. Conjunctiva/sclera: Conjunctivae normal. Pupils: Pupils are equal, round, and reactive to light. Cardiovascular: Rate and Rhythm: Normal rate and regular rhythm. Pulses: Normal pulses. Heart sounds: Normal heart sounds. No murmur heard. No friction rub. Pulmonary: Effort: Pulmonary effort is normal. No respiratory distress. Breath sounds: Normal breath sounds. No stridor. No wheezing, rhonchi or rales. Chest: Chest wall: No tenderness. Abdominal: General: Abdomen is flat. There is no distension. Palpations: Abdomen is soft. There is no mass. Tenderness: There is no abdominal tenderness. There is no right CVA tenderness, left CVA tenderness, guarding or rebound. Hernia: No hernia is present. Musculoskeletal: General: No swelling, tenderness, deformity or signs of injury. Normal range of motion. Cervical back: Normal range of motion and neck supple. No rigidity. Right lower leg: No edema. Left lower leg: No edema. Lymphadenopathy: Cervical: Cervical adenopathy present. Skin: General: Skin is warm and dry. Capillary Refill: Capillary refill takes less than 2 seconds. Coloration: Skin is not jaundiced or pale. Findings: Rash (Left anterior thigh with erytehmatic macupapular rash with streak like noted, similiar area to left upper arm) present. No bruising, erythema or lesion. Neurological: General: No focal deficit present. Mental Status: She is alert and oriented to person, place, and time. Cranial Nerves: No cranial nerve deficit. Sensory: No sensory deficit. Motor: No weakness. Coordination: Coordination normal. Gait: Gait normal. Psychiatric: Mood and Affect: Mood normal. Behavior: Behavior normal. Thought Content: Thought content normal. Judgment: Judgment normal. Assessment and Plan ASSESSMENT/PLAN: 1. Acute otitis media, bilateral - ICD9: 382.9, ICD10: H66.93 (primary diagnosis) - Will begin treatment with as per antibiotic as written, see orders - The patient should also be given OTC cough and cold meds as needed, warm salt water gargles, throat lozenges and/or OTC throat spray as needed, and nasal saline gtts and suction prn for the first 5-7 days of treatment. - Supportive care with plenty of fluids, rest, and analgesia prn. - Follow up in 3-5 days if symptoms persist or worsen. 2. URI, acute - ICD9: 465.9, ICD10: J06.9 - Symptomatic treatment with prn analgesia - Supportive care with fluids and rest 3. Plant allergic contact dermatitis - ICD9: 692.6, ICD10: L23.7 - Oral Steriod tx -Prednisone taper - Anti itch therapy of Oral Benydryl recommended prn - discussed skin care of rash - follow up if symptoms persist or worsen. Galilea Phelps APRN.[employer]ODU[employer] SALES REPRESENTATIVE documented [facility] History of Present illness Narrative* Galilea Jordan APRN.CNM - 10/13/2023 9:53 AM EDT Ani is a 33 year old who presents for an annual gynecologic exam without complaints. -Working with primary care, taking Wellbutrin and Low dose naltrexone. Ten pound weight loss in last month. Decreased portion sizes and not grazing as much. RN Menses: cycles every 27-30 days and 3-4 days of flow. Contraception: Tubal Ligation HPV vaccine: No Last Pap: normal 05/22/2020 HPV: N/A History of abnormal pap: No Last mammogram: never Sexually active: Yes Time with current partner: 10 years Pain with intercourse: No Postcoital bleeding: No Exercise: Busy with 2 year old. Tries to walk a mile 3 times a week Diet: Regular Seatbelt use: Yes OB History T2 L1 SAB0 IAB0 Ectopic0 Multiple0 Live Births1 Exceptional Children Teacher History LMP: 10/05/2023 (Exact Date), Having periods Age at Menarche: Age at First : Age at Menopause: Exceptional Children Teacher History Comments: Sexual Activity: Yes; Male Contraception: Condom PAST MEDICAL HISTORY Diagnosis Date Hyperlipidemia 11/07/2011 PAST SURGICAL HISTORY Procedure Laterality Date ESOPHAGOGASTRODUODENOSCOPY TRANSORAL DIAGNOSTIC 07/12/15 EGD ([facility] [place]) PAST SURGICAL HISTORY OF wisdom teeth UNSPECIFIED ORAL SURGERY PROCEDURE, BY REPORT 2007 Tooth and bone replacement FAMILY HISTORY Problem Relation Age of Onset Heart Maternal Grandmother Allergies Brother Heart Mother [place], 06/12/2009 age 47 SOCIAL HISTORY Social History Tobacco Use Smoking status: Never Smokeless tobacco: Never Substance Use Topics Alcohol use: No Drug use: No REVIEW OF SYSTEMS Abdomen: No abdominal pain, nausea, vomiting, diarrhea, or constipation. No bloating, early satiety, indigestion, or increased flatulence. Bladder: No dysuria, gross hematuria, urinary frequency, urinary urgency, or incontinence. Breast: No breast lumps, nipple d/c, overlying skin changes, redness or skin retraction. Allergies and current medication updated:Yes EXAM: BP 122/76 Ht 5' 3 (1.60m) Wt 278 lb 9.6 oz (126.4kg) LMP 10/05/2023 BMI 49.36 kg/(m^2). GENERAL: pleasant, female in no apparent distress HEENT: Normocephalic, atraumatic, mucus membranes moist, and no lesions NECK: Supple, full range of motion, no adenopathy, and thyroid normal DERMATOLOGY: Normal, without lesions, non-icteric, and non-hirsute BREAST: soft, non-tender, symmetric, no dominant mass, normal nipple-areolar complex, no lymphadenopathy, and no nipple discharge CHEST: Normal inspiratory effort ABDOMEN: soft, non-tender, and no masses PELVIC: external genitalia normal, normal Bartholin's glands, urethra, [place]'s glands, no vulvar lesions, no cervical lesions, good vaginal support, physiologic discharge present, normal appearing perineal body and perianal region. Acanthosis of inner thighs. BIMANUAL: uterus normal size, shape and consistency, no adnexal masses, and non-tender RECTOVAGINAL: deferred. NEURO: alert and oriented x3,exam grossly non-focal EXTREMITIES: normal ASSESSMENT/PLAN: 1. Encounter for gynecological examination (general) (routine) with abnormal findings - ICD9: V72.31, ICD10: Z01.411 (primary diagnosis) - Completed pelvic and breast exam - Encouraged monthly BSE - Follow up for annual exam in one year. 2. Screening for cervical cancer - ICD9: V76.2, ICD10: Z12.4 - Completed pelvic and breast exam - Encouraged monthly BSE - Follow up for annual exam in one year. - PAP TEST 3. Encounter for screening for human papillomavirus (HPV) - ICD9: V73.81, ICD10: Z11.51 - PAP TEST 4. Class 3 severe obesity without serious comorbidity with body mass index (BMI) of 45.0 to 49.9 inadult, unspecified obesity type (HCC) - ICD9: 278.01, V85.42, ICD10: E66.01, Z68.42 -Working with primary care, taking Wellbutrin and Low dose naltrexone. 5. Acanthosis nigricans - ICD9: 701.2, ICD10: L83 1) Health maintenance: Pap done with HPV. Mammogram starting age 40. Nutrition, exercise and routine health maintenance exams reviewed. Calcium/Vitamin D supplementation information provided. Lipids/glucose: followed by PCP Vitamin D: followed by PCP 2) Contraception: tubal sterilization. Contraceptive options reviewed and information provided. 3) STD screening: Declined STD check. 4) Follow up one year or sooner as needed Galilea Jordan APRN.CNM [facility] Hospital Discharge instructions Additional Instructions Okay to take ibuprofen 400-600 mg PO q6hr PRN along with the Percocet. Avoid Tylenol since there is already Tylenol in the Percocet. Take all pain meds with food. Percocet can cause constipation recommend taking daily stool softener (i.e. Colace/docusate) while taking the pain meds. Recommend starting some MiraLAX in 1 to 2 days if no bowel movement. If still no bowel movement the following day recommend taking magnesium citrate half the bottle and waiting 4-6 hours if still no results take the other half the bottle.[facility] Work Phone: Evaluation note* Diagnosis Onset Date Resolution Status S/P laparoscopic cholecystectomy acute GERD (gastroesophageal reflux disease) chronic Acute cholecystitis resolved S/P laparoscopic cholecystectomy acute Umbilical hernia without obs truction and without gangrene acute Family history of early CAD acute S/P laparoscopic cholecystectomy acute GERD (gastroesophageal reflux disease) chronic Elevated liver enzymes resol walter S/P laparoscopic cholecystectomy acute Umbilical hernia without obs truction and without gangrene acute Umbilical hernia without obs truction and without gangrene acute [facility] Work Phone: Evaluation note* Diagnosis Onset Date Resolution Status S/P laparoscopic cholecystectomy acute Umbilical hernia without obs truction and without gangrene resolved Family history of early CAD acute S/P laparoscopic cholecystectomy acute GERD (gastroesophageal reflux disease) chronic Elevated liver enzymes resol walter S/P laparoscopic cholecystectomy acute Umbilical hernia without obs truction and without gangrene resolved Umbilical hernia without obs truction and without gangrene resolved History of umbilical hernia repair acute Hyperlipidemia acute GERD (gastroesophageal reflux disease) chronic Elevated liver enzymes resol walter [facility] Work Phone: Evaluation note* Diagnosis Onset Date Resolution Status GERD (gastroesophageal reflux disease) chronic Hyperlipidemia chronic Elevated liver enzymes resol walter URI (upper respiratory infection) acute Hyperlipidemia chronic Hypertension chronic [facility] Work Phone: Evaluation note* Diagnosis Onset Date Resolution Status URI (upper respiratory infection) acute Hyperlipidemia chronic Hypertension chronic Acute sinusitis noneactive [facility] Work Phone: Evaluation note* Diagnosis Onset Date Resolution Status Hypertension chronic Morbid obesity chronic Hyperlipidemia chronic Hypertension chronic Metabolic syndrome chronic Morbid obesity chronic [facility] Work Phone: Evaluation note* Diagnosis Encounter for gynecological examination (general) (routine) with abnormal findings- Primary Screening for cervical cancer Screening for malignant neoplasm of the cervix Encounter for screening for human papillomavirus (HPV) Special screening examination for human papillomavirus (HPV) Class 3 severe obesity without serious comorbidity with body mass index (BMI) of 45.0 to 49.9 in adult, unspecified obesity type (HCC) Acanthosis nigricans Acquired acanthosis nigricans documented in this encounter [facility] note* Diagnosis Acute otitis media, bilateral- Primary Unspecified otitis media URI, acute Acute upper respiratory infections of unspecified site Plant allergic contact dermatitis Contact dermatitis and other eczema due to plants (except food) [facility] Diagnosis Onset Date Resolution Status Preventative health care acu te Hypertension chronic Morbid obesity [facility] Work Phone: Evaluation note* Diagnosis URI, acute- Primary Acute upper respiratory infections of unspecified site Acute otitis media, right Unspecified otitis media Viral illness Unspecified viral infection, in conditions classified elsewhere and of unspecified site documented in this encounter [facility] note* Diagnosis Encounter for gynecological examination (general) (routine) with abnormal findings- Primary Abnormal uterine bleeding (AUB) Menorrhagia with regular cycle Excessive or frequent menstruation Dysmenorrhea documented in this encounter [facility] noteNo assessment information availableK[facility] Work Phone: Reason for referral (narrative)No reason for referral information availableKaiser Martinez Medical Center Work Phone: Summary Purpose Family History No Family History Records Found Relationship Condition Age at Onset Recorded Date/T natan father Arthritis Unknown grandmother Malignant neoplasm Unknown Myocardial infarction Unknown Cardiac disease Unknown mother Myocardial infarction 47 grandfather Myocardial infarction Unknown Hypertension Unknown High blood cholesterol Unknown Kidney disorder Unknown Disorder of respiratory system Unknown Malignant neoplasm of skin Unknown Advance Directives No Advanced Directives Records Found Advance Directive Response Recorded Date/ Time Living Will No December 04, 2021 12:52pm Power of [place]eman No December 04 12:52pm Advance Directive Response Recorded Date/ Time Living Will No December 04, 2021 11:52am Power of [place]eman No December 04 11:52am Advance Directive Response Recorded Date/ Time Living Will No March 25 10:07am Power of [place]eman No March 25, 2023 10:07am Chief Complaint and Reason for Visit Chief Complaint GALLSTONE GALLSTONE GALLSTONE GALLSTONE 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 CARE- MED REFILLS ONLY Amb Documentation GALLBLADDER F/U 09/07 & DISCUSS HERNIA UMBILICAL HERNIA REPAIR MESH UMBILICAL HERNIA REPAIR MESH Reason for Visit S/P laparoscopic cho lecystectomy GERD (gastroesophageal reflux disease) Acute cholecystitis S/P laparoscopic cholecystectomy Umbilical hernia without obstruction and without gangrene Family history of early CAD S/P laparoscopic cholecystectomy GERD (gastroesophageal reflux disease) Elevated liver enzymes S/P laparoscopic cholecystectomy Umbilical hernia without obstruction and without gangrene Umbilical hernia without obstruction and without gangrene Chief Complaint 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 CARE- MED REFILLS ONLY Amb Documentation GALLBLADDER F/U 09/07 & DISCUSS HERNIA UMBILICAL HERNIA REPAIR MESH UMBILICAL HERNIA REPAIR MESH 2 W FU UMBILICAL HERNIA REPAIR E-ORDER 3 M FU Reason for Visit S/P laparoscopic cho lecystectomy Umbilical hernia without obstruction and without gangrene Family history of early CAD S/P laparoscopic cholecystectomy GERD (gastroesophageal reflux disease) Elevated liver enzymes S/P laparoscopic cholecystectomy Umbilical hernia without obstruction and without gangrene Umbilical hernia without obstruction and without gangrene History of umbilical hernia repair Hyperlipidemia GERD (gastroesophageal reflux disease) Elevated liver enzymes Chief Complaint E-ORDER 3 M FU E ORDERS 3 M FU Reason for Visit GERD (gastroesophage al reflux disease) Hyperlipidemia Elevated liver enzymes URI (upper respiratory infection) Hyperlipidemia Hypertension Chief Complaint E ORDERS 3 M FU Cough Reason for Visit URI (upper respirato ry infection) Hyperlipidemia Hypertension Acute sinusitis Chief Complaint fu DINING W/ DIABETES 2 M FU Reason for Visit Hypertension Morbid obesity Hyperlipidemia Hypertension Metabolic syndrome Morbid obesity Chief Complaint fu 2 M FU DINING W/ DIABETES Reason for Visit Hypertension Morbid obesity Hyperlipidemia Hypertension Metabolic syndrome Morbid obesity Chief Complaint 3 M FU Reason for Visit Preventative health care Hypertension Morbid obesity Chief Complaint Admit Date 6 M FU January 09, 2025 9:11 am Reason for Visit Admit Date Attention deficit January 09, 2025 9:11 am Hyperlipidemia January 09, 2025 9:11 am Hypertension January 09, 2025 9:11 am Metabolic syndrome January 09, 2025 9:11 am Morbid obesity January 09, 2025 9:11 am Additional Source Comments INFORMATION SOURCE (unrecogn ized section and content) DATE CREATED AUTHOR 01/02/2020 [employer] DATE CREATED AUTHOR AUTHOR'S ORGANIZ ATION 03/01/2020 [facility] DATE CREATED AUTHOR AUTHOR'S ORGANIZ ATION 03/25/2025 [facility] DATE CREATED AUTHOR AUTHOR'S ORGANIZ ATION 04/01/2025 [facility] DATE CREATED AUTHOR AUTHOR'S ORGANIZ ATION 04/15/2025 [facility] Goals (unrecognized section and content) Goals may be documented in a n alternate sectionGoals may be documented in an alternate sectionGoals may be documented in an alternate sectionGoals may be documented in an alternate sectionGoals may be documented in an alternate sectionGoals may be documented in an alternate sectionGoals may be documented in an alternate section Care Teams (unrecognized sec tion and content) Team Status: Active Member Role Status Dates Dr. Heber Unger III, MD Family Provider Active Dr. Wes Ho MD Primary Care Provider Active Team Status: Inactive Member Role Status Dates Dr. Wes Ho MD Primary Care P tiny, Attending Provider, Referring Provider Active Team Status: Active Member Role Status Dates Dr. Wes Ho MD Primary Care Provider Active Self Referred Attending Provider Active Team Status: Inactive Member Role Status Dates Dr. Wes Ho MD Primary Care Provider, Atten ding Provider Active Team Status: Inactive Member Role Status Dates Dr. Wes Ho MD Primary Care Provider Active Self Referred Attending Provider Active Environmental Services Lead Relationship Specialty Start Date End Date Wes Ho MD [address] [place] [address] PCP - General Internal Medicine 10/07/23 Environmental Services Lead Relationship Specialty Start Date End Date Wes Ho MD [address] [place] [address] PCP - General Internal Medicine 10/07/23 Environmental Services Lead Relationship Specialty Start Date End Date Wes Ho MD [address] [address] [place] [address] PCP - General Internal Medicine 10/07/23 Environmental Services Lead Relationship Specialty Start Date End Date Wes Ho MD [address] [place] [address] PCP - General Internal Medicine 10/07/23 Team Status: Active Member Role/Relationship Status Dates Dr. Heber Unger III, MD Family Provider Active Dr. Wes Ho MD Primary Care Provider Active Team Status: Inactive Member Role/Relationship Status Dates Dr. Wes Ho MD Primary Care Provider Active Start: January 09, 2025 End: January 09, 2025 Dr. Wes Ho MD Attending Provider Active Start: January 09, 2025 End: January 09, 2025 Dr. Wes Ho MD Referring Provider Active Start: January 09, 2025 End: January 09, 2025 Team Status: Active Member Role/Relationship Status Dates Dr. Wes Ho MD Primary Care Provider Active Start: January 09, 2025 Dr. Wes Ho MD Attending Provider Active Start: January 09, 2025 Dr. Wes Ho MD Referring Provider Active Start: January 09, 2025 Team Status: Inactive Member Role/Relationship Status Dates Dr. Wes Ho MD Primary Care Provider Active Start: January 09, 2025 End: January 09, 2025 Dr. Wes Ho MD Attending Provider Active Start: January 09, 2025 End: January 09, 2025 Dr. Wes Ho MD Referring Provider Active Start: January 09, 2025 End: January 09, 2025 Source Comments (unrecognize d section and content) In the event this informatio n is protected by the Federal Confidentiality of Alcohol and Drug Abuse Patient Records regulations: The Federal rules restrict any use of the information to criminally investigate or prosecute any alcohol or drug abuse patient.[facility] the event this information is protected by the Federal Confidentiality of Alcohol and Drug Abuse Patient Records regulations: The Federal rules restrict any use of the information to criminally investigate or prosecute any alcohol or drug abuse patient.[facility] the event this information is protected by the Federal Confidentiality of Alcohol and Drug Abuse Patient Records regulations: The Federal rules restrict any use of the information to criminally investigate or prosecute any alcohol or drug abuse patient.[facility] the event this information is protected by the Federal Confidentiality of Alcohol and Drug Abuse Patient Records regulations: The Federal rules restrict any use of the information to criminally investigate or prosecute any alcohol or drug abuse patient.[facility] Reason for Visit (unrecogniz ed section and content) Reason Comments Well Woman Reason Comments Cough Congestion, cughing up green mucus and right ear painx1 week. Reason Comments Sore Throat sore throat, swollen lymph nodes, ear pain, muscle aches, green nasal drainage - Entered by patient Reason Comments Well Woman FOR RECORDS PERTAINING TO PATIENTS WHO ARE OR HAVE BEEN ENROLLED IN A CHEMICAL DEPENDENCY/SUBSTANCEABUSE PROGRAM, SOME INFORMATION MAY BE OMITTED. This clinical summary was aggregated from multiple sources. Caution should be exercised in using it in the provision of clinical care. This summary normalizes information from multiple sources, and as a consequence, information in this document may materially change the coding, format and clinical context of patient data. In addition, data may be omitted in some cases. CLINICAL DECISIONS SHOULD BE BASED ON THE PRIMARY CLINICAL RECORDS. [employer] [facility]. provides no warranty or guarantee of the accuracy or completeness of information in this document.
[2025-05-25 08:42] LABS: Hematocrit 37.1 % (37-47); Hemoglobin 13.0 g/dL (12.0-15.0); Immature Granulocytes Count 0.030 X10^3/uL (0.0-0.0); Mean Corp Hgb Conc 35.0 g/dL (32-36); Mean Corpuscular Volume 85.3 fL (81-99); Mean Platelet Vol. 10.0 fl (6.2-12.0); NRBC Flagged by Analyzer 0 % (0-5); Platelet Count 300 K/mm3 (150-450); RBC Distribution Width CV 12.8 % (11.6-14.6); RBC Distribution Width SD 39.1 fl (35.1-43.9); Red Blood Count 4.35 M/mm3 (4.2-5.4); White Blood Count 8.5 K/mm3 (4.4-11.0)
[2025-05-25 08:59] LABS: Color, Urine Yellow (Yellow); Glucose, Dipstick Normal (Normal); Ketone-Dipstick Negative (Negative); Leukocyte Esterase-Dipstick 100 /ul (Negative); Nitrite-Dipstick Negative (Negative); Occult Blood-Urine Negative /ul (Negative); Protein-Dipstick 15 mg/dl (Negative); Specific Gravity, Urine 1.015 (1.002-1.030); Urine Bilirubin Dipstick Negative (Negative)
[2025-05-25 09:08] LABS: Squamous Epithelial Cells - UA 5-10 SEEN /hpf (5-10)
[2025-05-25 09:13] LABS: Albumin, Serum 4.5 g/dL (3.5-5.0); BUN 12 mg/dL (4-19); BUN/Creat Ratio 14.9 RATIO (10-20); Glucose 104 mg/dL (70-99)
[2025-05-25 09:14] LABS: AST(SGOT) 23 U/L (<=31); Alanine Aminotransfer ALT/SGPT 23 U/L (<=34); Alkaline Phosphatase 53 U/L (35-104); Anion Gap 15 (5-15); Calcium,Total 9.3 mg/dL (7.6-11.0); Carbon Dioxide 21.3 mmol/L (21.0-32.0); Chloride 101 mmol/L (98-108); Cholesterol 226 mg/dL (<=200); Globulin 2.9 g/dL (2.2-4.2); Low Density Lipoprotein Calc. 131 mg/dL; Potassium 4.2 mmol/L (3.3-5.1); Triglycerides 337 mg/dL; Very Low Density Lipoprotein 67 mg/dL (5-40); cholesterol:hdl ratio screen 6.51
== END | disposition home or self-care (01) ==
PROVIDERS: PCP Internal Medicine; Referring Provider Internal Medicine; Visit Provider Internal Medicine
DX: N39.0 Urinary tract infection, site not specified (principal); N92.0 Excessive and frequent menstruation with regular cycle; I10 Essential (primary) hypertension; E78.5 Hyperlipidemia, unspecified; R73.9 Hyperglycemia, unspecified
CPT/HCPCS: 36415; 80053; 80061; 81001; 83036; 84439; 84443; 85025; 85027; 87077; 87086; 87088